=== PATIENT | male | born 1940 | race Caucasian/White ===

== ENCOUNTER → 2019-06-21 10:45 | Outpatient (BNVA) | payer MEDICARE, SELFPAY | PROVIDERS: Family Provider Nurse Practitioner; PCP Nurse Practitioner; Visit Provider Nurse Practitioner | DX: I10 Essential (primary) hypertension (principal); J30.1 Allergic rhinitis due to pollen; H61.23 Impacted cerumen, bilateral | CPT/HCPCS: 80053; 80061; 81003; 85025 ==

== ENCOUNTER → 2020-02-26 10:40 | Outpatient (BNVA) | payer MEDICARE, SELFPAY | PROVIDERS: Family Provider Nurse Practitioner; PCP Nurse Practitioner; Visit Provider Nurse Practitioner | DX: I10 Essential (primary) hypertension (principal) | CPT/HCPCS: 80053; 80061 ==

== ENCOUNTER → 2020-05-22 10:22 | Outpatient (BNVA) | payer MEDICARE, SELFPAY | PROVIDERS: Absent Provider Family Medicine; Family Provider Nurse Practitioner; PCP Nurse Practitioner; Visit Provider Nurse Practitioner | DX: I10 Essential (primary) hypertension (principal); J30.1 Allergic rhinitis due to pollen | CPT/HCPCS: 80053; 80061; 81000; 84443; 85025 ==

== ENCOUNTER → 2020-11-20 10:41 | Outpatient (BNVA) | payer MEDICARE, BC, SELFPAY | PROVIDERS: Family Provider Nurse Practitioner; PCP Nurse Practitioner; Visit Provider Nurse Practitioner | DX: I10 Essential (primary) hypertension (principal); E55.9 Vitamin D deficiency, unspecified; M25.522 Pain in left elbow; J30.1 Allergic rhinitis due to pollen; M19.022 Primary osteoarthritis, left elbow; M25.552 Pain in left hip; M16.12 Unilateral primary osteoarthritis, left hip; M54.5 Low back pain; M47.896 Other spondylosis, lumbar region | CPT/HCPCS: 72100; 73080; 73502; 73552; 80053; 80061; 82306; 84443; 85025; 85651; 86140 ==

== ENCOUNTER → 2021-07-02 10:26 | Outpatient (BNVA) | payer MEDICARE, BC, SELFPAY | PROVIDERS: Family Provider Nurse Practitioner; PCP Nurse Practitioner; Visit Provider Nurse Practitioner | DX: I10 Essential (primary) hypertension (principal); E55.9 Vitamin D deficiency, unspecified; M25.562 Pain in left knee; M19.071 Primary osteoarthritis, right ankle and foot | CPT/HCPCS: 73610; 80053; 80061; 81000; 82306 ==

== ENCOUNTER 2021-12-11 09:41 | Outpatient (CLI) | payer MEDICARE, BC, SELFPAY ==
--- NOTE | 2021-12-11 10:00 | US_ITS ---
WS: [id number] Exam: US renal BI* [id number] Date/Time of Exam: 12/11/2021 9:58 AM Reason For Exam: I10 - Essential (primary) hypertension The kidneys are of normal size, shape and location. 1.2 cm cyst at the mid pole of the left kidney. N ormal-appearing right kidney. The right kidney measures 9.7 x 4.2 x 4 cm. Cortical thickness of the r ight kidney is approximately 1 cm. Left kidney measures 10.7 x 4 x 4.63 cm. Cortical thickness the le ft kidney is 1.15 cm. No sign of renal obstruction. No obvious intrinsic or extrinsic bladder filling defects were seen. The kidneys are well perfused. The abdominal aorta is normal in caliber. US/US renal BI* [id number] IMPRESSION: 1. 1.2 cm midpole cyst of the left kidney. 2. No indication of solid renal mass, renal obstruction or other significant fi nding.
== END 2021-12-11 09:42 | disposition home or self-care (01) ==
LOC: RAD 09:42
PROVIDERS: PCP Nurse Practitioner; Visit Provider Nurse Practitioner
DX: I10 Essential (primary) hypertension (principal); N28.1 Cyst of kidney, acquired
CPT/HCPCS: 76770

== ENCOUNTER → 2021-12-29 10:07 | Outpatient (BNVA) | payer MEDICARE, BC, SELFPAY | PROVIDERS: PCP Nurse Practitioner; Visit Provider Nurse Practitioner | DX: I10 Essential (primary) hypertension (principal); J30.1 Allergic rhinitis due to pollen; N28.1 Cyst of kidney, acquired | CPT/HCPCS: 80053; 80061; 84443 ==

== ENCOUNTER → 2022-04-23 08:58 | Outpatient (BNVA) | payer MEDICARE, BC, SELFPAY | PROVIDERS: PCP Nurse Practitioner; Visit Provider Nurse Practitioner | DX: I10 Essential (primary) hypertension (principal) | CPT/HCPCS: 80053; 80061 ==

== ENCOUNTER 2022-07-02 11:37 | Outpatient (CLI) | payer MEDICARE, BC, SELFPAY ==
--- NOTE | 2022-07-02 12:00 | US_ITS ---
WS: [id number] RENAL ULTRASOUND HISTORY: N28.1 - Cyst of kidney, acquired COMPARISON: 12/11/2021 TECHNIQUE: 2-D and color Doppler imaging of the kidney submitted. Right kidney: 9.1 cm x 4.5 cm x 4.7 cm. Normal size kidney. There is mild increased echogenicity from chronic medical renal disease. No hydro nephrosis. No solid mass. Cortex is normal in 1.2 cm. Left kidney: 10.1 cm x 5.0 cm x 5.2 cm. Mild increased echogenicity. Normal size kidney. Again noted is the exophytic cortical cyst from the kidney with a maximum diameter 1.7 cm. Aorta: Atherosclerosis with mildly tortuous aorta. Urinary Bladder: Normally distended bladder. Very mild prostate gland enlargement measuring 3.5 x 3.8 x 3.0 cm. US/US renal BI* [id number] IMPRESSION: 1. No hydronephrosis or solid renal mass. 2. Stable LEFT cortical cyst. Maximum diameter 1.7 cm with very minimal increa se in size since the prior study.
== END 2022-07-02 11:38 | disposition home or self-care (01) ==
LOC: RAD 11:37
PROVIDERS: PCP Nurse Practitioner; Visit Provider Nurse Practitioner
DX: N28.1 Cyst of kidney, acquired (principal)
CPT/HCPCS: 76770

== ENCOUNTER → 2022-09-17 09:05 | Outpatient (BNVA) | payer MEDICARE, BC, SELFPAY | PROVIDERS: PCP Nurse Practitioner; Visit Provider Nurse Practitioner | DX: I10 Essential (primary) hypertension (principal); E55.9 Vitamin D deficiency, unspecified | CPT/HCPCS: 80053; 80061; 82306 ==

== ENCOUNTER → 2022-12-01 10:40 | Outpatient (BNVA) | payer MEDICARE, BC, SELFPAY | PROVIDERS: PCP Nurse Practitioner; Visit Provider Nurse Practitioner | DX: I10 Essential (primary) hypertension (principal); R73.9 Hyperglycemia, unspecified | CPT/HCPCS: 80048; 83036 ==

== ENCOUNTER → 2023-05-19 10:33 | Outpatient (BNVA) | payer MEDICARE, BC, SELFPAY | PROVIDERS: PCP Nurse Practitioner; Visit Provider Nurse Practitioner | DX: G47.9 Sleep disorder, unspecified (principal); J30.1 Allergic rhinitis due to pollen; I10 Essential (primary) hypertension; R35.0 Frequency of micturition; R73.9 Hyperglycemia, unspecified; L29.9 Pruritus, unspecified | CPT/HCPCS: 80053; 80061; 81000; 83036; 86003 ==

== ENCOUNTER 2023-07-22 07:59 | Outpatient (CLI) | payer MEDICARE, BC, SELFPAY ==
--- NOTE | 2023-07-22 08:30 | USCV_ITS ---
Alexey Victor Hugo Age: 83 Gender: M : 1940 Exam Date: 07/22/2023 08:29 Ordering Phys: Michael Deluca Technologist: SANDRA Exam Location: [facility] [place]: HTN Aortic Velocity @ SMA (cm/s) 84.9 RIGHT KIDNEY LEFT KIDNEY Velocity (cm/s) Velocity (cm/s) Sys/Bowie Sys/Bowie Resistive Index Resistive Index 29.8 / 11.8 0.60 Proximal Renal Artery 96.6 / 32.2 0.67 26.5 / 10.8 0.59 Mid Renal Artery 65.1 / 19.2 0.71 35.1 / 11.7 0.67 Distal Renal Artery 81.0 / 34.7 0.57 17.2 / 5.8 0.66 Hilar 32.0 / 10.0 0.69 19.4 / 7.3 0.63 Upper Pole 23.5 / 11.5 0.51 10.5 / 4.4 0.58 Mid Pole 28.9 / 12.6 0.57 12.1 / 4.4 0.64 Lower Pole 23.5 / 11.5 0.51 Accleration Index (cm/sec2) 54.50 Hilar 78.50 49.50 Upper Pole 46.30 21.60 Mid Pole 87.30 29.80 Lower Pole 52.00 93.0 Kidney Length (mm) 91.0 CONCLUSIONS 1.2 x1.2cm simple left renal cyst No hydronephrosis in either kidney No sonographic evidence of hemodynamically significant renal artery stenosis bilaterally. Musa Anna MD (Electronically Signed) Final Date: 22 July 2023 14:03 S
== END 2023-07-22 08:00 | disposition home or self-care (01) ==
LOC: RAD 08:00
PROVIDERS: PCP Nurse Practitioner; Visit Provider Nurse Practitioner
DX: I10 Essential (primary) hypertension (principal); N28.1 Cyst of kidney, acquired
CPT/HCPCS: 93975

== ENCOUNTER → 2023-10-14 11:49 | Outpatient (BNVA) | payer MEDICARE, BC, SELFPAY | PROVIDERS: PCP Nurse Practitioner; Visit Provider Nurse Practitioner | DX: I10 Essential (primary) hypertension (principal); Z79.899 Other long term (current) drug therapy | CPT/HCPCS: 80048 ==

== ENCOUNTER → 2023-11-02 11:47 | Outpatient (CLI) | payer MEDICARE, BC, SELFPAY ==
--- NOTE | 2023-11-02 12:15 | USCV_ITS ---
Victor Hugo Blackburn Age: 83 Gender: M : 1940 Exam Date: 11/02/2023 11:52 Ordering Phys: Michael Deluca Technologist: [place] [facility] [place]: htn BP: 160 / 83 HR: 61 Rhythm: Sinus Technical Quality: Adequate MEASUREMENTS (Male / Female) Normal Values 2D ECHO LVOT Diameter 2.2 cm LV Ejection Fraction MOD 2C 60.0 % LV Ejection Fraction 2C AL 61.8 % LA Diameter 3.3 cm RA Systolic Volume 4C AL 23.2 ml RA Systolic Volume 4C MOD 22.5 ml LA Sys Volume AL 35.0 cm cubed LA Sys Volume Index AL 17.7 cm cubed/m squared Aorta at Sinotubular Diameter 2.8 cm IVC Diameter 1.7 cm M-MODE LA Ao Ratio MM 1.1 AV Cusp Separation MM 2.2 cm DOPPLER AV Peak Velocity 143.0 cm/s LVOT Peak Velocity 71.0 cm/s AV Area Cont Eq vti 2.4 cm squared AV Area Cont Eq pk 1.9 cm squared MV Peak Velocity 84.0 cm/s MV Area PHT 3.4 cm squared Mitral E to A Ratio 0.9 TV Peak Velocity 146.5 cm/s TR Peak Velocity 159.0 cm/s TR Peak Gradient 10.1 mmHg TV Peak E Velocity 66.0 cm/s PV Peak Velocity 83.0 cm/s FINDINGS Left Ventricle Normal left ventricular size, systolic function and wall thickness, with no regional wall motion abnormalities.left ventricular ejection fraction is estimated at 60 %. Grade I/IV diastolic dysfunction (abnormal relaxation filling pattern), normal to mildly elevated filling pressures. Right Ventricle The right ventricle is normal in size and function. Right Atrium The right atrium is normal in size. Left Atrium The left atrium is normal in size. Mitral Valve Structurally normal mitral valve without significant stenosis or prolapse. There is mild mitral regurgitation. Aortic Valve Moderate aortic valve calcification. No aortic valve stenosis. Mild aortic valve regurgitation. Tricuspid Valve Structurally normal tricuspid valve without significant stenosis or regurgitation. Pulmonary artery systolic pressure is normal. Pulmonic Valve Structurally normal pulmonic valve without significant stenosis. There is no pulmonic regurgitation. Pericardium Normal pericardium without effusion Aorta Normal ascending aorta dimension. IVC The inferior vena cava appears normal. CONCLUSIONS 1-Normal left ventricular size, systolic function and wall thickness, with no regional wall motion abnormalities.left ventricular ejection fraction is estimated at 60 %. Grade I/IV diastolic dysfunction (abnormal relaxation filling pattern), normal to mildly elevated filling pressures. 2-Moderate aortic valve calcification. No aortic valve stenosis. Mild aortic valve regurgitation. 3-There is no pericardial effusion. 4-Right atrial pressure is around 5 mm of mercury. Tony Suazo MD (Electronically Signed) Final Date: 02 November 2023 20:27 S
== END | disposition home or self-care (01) ==
LOC: RAD 11:46
PROVIDERS: PCP Nurse Practitioner; Visit Provider Nurse Practitioner
DX: I10 Essential (primary) hypertension (principal); I34.0 Nonrheumatic mitral (valve) insufficiency; I35.8 Other nonrheumatic aortic valve disorders
CPT/HCPCS: 93306

== ENCOUNTER → 2024-08-15 09:55 | Outpatient (BNVA) | payer MEDICARE, BC, SELFPAY | PROVIDERS: PCP Nurse Practitioner; Visit Provider Nurse Practitioner | DX: M25.541 Pain in joints of right hand (principal); M25.542 Pain in joints of left hand; M54.50 Low back pain, unspecified; M79.604 Pain in right leg | CPT/HCPCS: 73110; 73130; 80053; 82607 ==

== ENCOUNTER 2024-10-11 16:29 | Inpatient (IN) | payer MEDICARE, BC, SELFPAY ==
[2024-10-11] VITALS (19 sets, daily range): BP systolic 146–182; BP diastolic 107–134; PULSE 74–109; RESP 8–30; TEMP 36.9; O2SAT 86–98
--- NOTE | 2024-10-11 16:36 | ECG_ITS ---
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 Measurements Intervals [place] Rate: 95 P: 54 OH: 218 QRS: 14 QRSD: 102 T: 182 QT: 375 QTc: 473 Interpretive Statements SINUS RHYTHM WITH FIRST DEGREE AV BLOCK POSSIBLE LEFT ATRIAL ENLARGEMENT [-0.1mV P-WAVE IN V1/V2] ANTEROSEPTAL MYOCARDIAL INFARCTION , PROBABLY RECENT [40+ ms Q WAVE IN V1-V4] ACUTE [place] No previous ECG available for comparison Electronically Signed On 10-17-2024 11:56:10 CDT by Troy Palacios M.D. [id number]
--- NOTE | 2024-10-11 16:39 | XRR_ITS ---
PROCEDURE INFORMATION: Exam: XR Chest Exam date and time: 10/11/2024 4:49 PM Age: 84 years old Clinical indication: Pain; Chest pressure; Additional info: Chest pain TECHNIQUE: Imaging protocol: Radiologic exam of the chest. Views: 1 view. COMPARISON: No relevant prior studies available. FINDINGS: Lungs: Atelectasis or scar in the lung bases. Calcified granuloma in the suprahilar left lung. Calcified right hilar lymph nodes. Pleural spaces: Small bilateral pleural effusions. No pneumothorax. Heart/Mediastinum: Unremarkable. No cardiomegaly. Bones/joints: Degenerative spine with curvature. XR/XR chest 1V [id number] IMPRESSION: Small pleural effusions with basilar atelectasis.
[2024-10-11 17:02] LABS: Basophils % 0.3 %; Eosinophils # 0.1 10^3/uL (0.0-0.8); Eosinophils % 1.3 %; Hematocrit 46.1 % (37-53); Lymphocytes # 0.7 10^3/uL (0.8-4.8); Mean Corpuscular HGB Conc 34.3 g/dL (30-55); Mean Corpuscular Volume 90.4 fl (82-101); Mean Platelet Volume 9.8 fL (7.4-10.4); Monocytes # 0.5 10^3/uL (0.2-0.9); Monocytes % 7.9 %; Neutrophils # 4.77 10^3/uL (1.8-7.7); Neutrophils % 78.2 %; Nucleated Red Blood Cells % 0 %; Platelet Count 202 10^3/cmm (157-399); Red Cell Distribution Width 12.9 % (12.1-15.1)
[2024-10-11] MEDS: aspirin 81 mg Chew Tablet 324 MG PO (17:10)
[2024-10-11 17:19] LABS: Partial Thromboplastin Time 31.6 SECONDS (23.9-36.7)
--- NOTE | 2024-10-11 17:28 | W.ED.CHESTPA ---
HPI - Chest Pain General: Chief Complaint: Chest Pain Stated Complaint: chest pain Time Seen by Provider: 10/11/24 16:38 History of Present Illness: Chief complaint is difficulty breathing and elevated blood pressures. The patient states he came in because he noticed his blood pressures were really high and he has been having shortness of breath and leg swelling and cannot breathe if he lays flat. He states 2 weeks ago he had severe chest pain during the night that was left-sided substernal chest discomfort going to his left arm without radiation to the back. It was not sharp or tearing. It was pressure and squeezing and then resolved after about 4 hours of pain. He states since then he has been having troubles with his blood pressures going up and trouble breathing and he noticed his legs started swelling. He has no history of heart problems. He also has some cough but no fever. No headache. No history of aneurysms. No history of PE or DVT. No pleurisy. No hemoptysis. No black or bloody stools. No chest pain since that episode. Related Data Home Medications ?Medication ?Instructions ?Recorded ?Confirmed aspirin 81 mg chewable tablet 81 mg PO ONCE 05/30/19 10/11/24 lysine 500 mg tablet (L-Lysine) 500 mg PO DAILY 08/03/24 10/11/24 Allergies Allergy/AdvReac Type Severity Reaction Status Date / Time barley Allergy ADR-Gastrointestinal Verified 10/11/24 13:37 Upset orange Allergy ADR-Gastrointestinal Verified 10/11/24 13:37 Upset peanut Allergy swelling Verified 10/11/24 13:37 beef derived (bovine) AdvReac ADR-Gastrointestinal Verified 10/11/24 13:37 Upset [facility] ED PFSH: Medical History Grade I diastolic dysfunction Seasonal allergic rhinitis due to pollen Hypertension Surgical History No history of previous surgery Family History Father Heart disease Mother Cancer Blood cancer Social History Smoking and tobacco/nicotine status: never used tobacco/nicotine Second hand smoke exposure: No Alcohol intake: never Substance/Drug Use: never Adopted: No Caregiver/support person: No Lives independently: Yes Household members: children Housing: House Marital status: / Current occupational status: employed Do you think of yourself as: Straight/Heterosexual Current gender identity: Male Physical Exam Narrative: EXAM NARRATIVE: Patient is alert talkative in no acute distress. His neck is supple. Conjunctive is normal. Moist mucous membranes. Speech is clear. Grossly intact motor. Heart is regular rhythm. He has some diminished breath sounds in the bases with some crackles. Abdomen soft nontender. Patient has 2-3+ pitting edema both legs. Extremities are warm well-perfused. No rash in exposed areas. He shows ability to reason. Speech is clear. No truncal ataxia Course Vital Signs: Vital signs: Vital Signs Temperature 98.4 F 10/11/24 16:47 Pulse Rate 101 H 10/11/24 16:47 Respiratory Rate 18 10/11/24 16:47 Blood Pressure 177/117 10/11/24 16:47 Pulse Oximetry 98 10/11/24 16:47 Oxygen Delivery Me thod Room Air 10/11/24 16:47 MDM - Chest Pain Medical Decision Making Patient presents after having episode of significant chest discomfort during the night 2 weeks ago and since then has had no further chest discomfort but has been having progressively worsening shortness of breath especially if he lays flat or tries to do activity and has increasing swelling in both legs. The pain was not sharp or tearing into the back to suggest a dissection. It is not pleuritic to suggest a PE and denies any recent immobility or hemoptysis or history of PE or DVT. EKG ordered. EKG shows ST elevation in the precordial leads and biphasic T waves in some of the leads as well and T wave inversions in several leads. This could represent ST elevation ME however he has deep Q waves and this is most likely completed ME 2 weeks ago based on history. He is not having any current chest pain. Cardiology came immediately to the bedside and evaluated the patient and reviewed the EKG and recommends obtaining labs and not taken directly to Production Shift Supervisor which I agree with. Patient I suspect had ME 2 weeks ago and now has subsequent CHF. CBC CMP troponin PT PTT chest x-ray ordered. Aspirin given 324 mg aspirin. Will administer nitroglycerin. Plan to admit to the hospital for further cardiac evaluation and treatment. Patient's white count is normal and hemoglobin is normal. Chest x-ray showed small pleural effusions bilaterally and atelectasis per radiology. Plan to order heparin bolus and drip and admit for further evaluation. Patient troponin was elevated. proBNP is elevated. Creatinine is 1.3. I ordered 40 mg Lasix IV. I discussed that with again with Dr. Palacios who plans to do heart cath in the morning and with Dr. Lange who will admit Lab Data 10/11/24 16:48 10/11/24 16:48 Radiology Impressions Chest X-Ray 10/11/24 16:39 IMPRESSION: Small pleural effusions with basilar atelectasis. Laboratory Results WBC 6.10 10^3/uL (3.29-11.43) 10/11/24 16:48 RBC 5.10 10^6/uL (3.85-5.65) 10/11/24 16:48 Hgb 15.80 g/dL (11.27-16.99) 10/11/24 16:48 Hct 46.1 % (37-53) 10/11/24 16:48 MCV 90.4 fl (82-101) 10/11/24 16:48 MCH 31.0 pg (27-33) 10/11/24 16:48 MCHC 34.3 g/dL (30-55) 10/11/24 16:48 RDW 12.9 % (12.1-15.1) 10/11/24 16:48 Plt Count 202 10^3/cmm (157-399) 10/11/24 16:48 MPV 9.8 fL (7.4-10.4) 10/11/24 16:48 Neut % (Auto) 78.2 % 10/11/24 16:48 Lymph % (Auto) 12.0 % 10/11/24 16:48 [place] % (Auto) 7.9 % 10/11/24 16:48 Eos % (Auto) 1.3 % 10/11/24 16:48 Baso % (Auto) 0.3 % 10/11/24 16:48 Neut # (Auto) 4.77 10^3/uL (1.8-7.7) 10/11/24 16:48 Lymph # (Auto) 0.7 10^3/uL (0.8-4.8) L 10/11/24 16:48 [place] # (Auto) 0.5 10^3/uL (0.2-0.9) 10/11/24 16:48 Eos # (Auto) 0.1 10^3/uL (0.0-0.8) 10/11/24 16:48 Baso # (Auto) 0.0 10^3/uL (0.0-0.1) 10/11/24 16:48 Nucleated RBC % (auto) 0 % 10/11/24 16:48 Nucleated RBCs # 0.0 /100WBC 10/11/24 16:48 PT 13.90 SECONDS (12.1-14.9) 10/11/24 16:48 INR 1.00 (0.8-1.2) 10/11/24 16:48 APTT 31.6 SECONDS (23.9-36.7) 10/11/24 16:48 Sodium 143 mmol/L (136-145) 10/11/24 16:48 Potassium 4.7 mmol/L (3.5-5.1) 10/11/24 16:48 Chloride 106 mmol/L (98-107) 10/11/24 16:48 Carbon Dioxide 21 mmol/L (22-29) L 10/11/24 16:48 Anion Gap 20.7 (5-19) H 10/11/24 16:48 BUN 28 mg/dL (8-23) H 10/11/24 16:48 Creatinine 1.3 mg/dL (0.7-1.2) H 10/11/24 16:48 GFR Calculation Not Reportable 10/11/24 16:48 Glucose 108 mg/dL (65-115) 10/11/24 16:48 Calculated Osmolality 302 mOsm/kg (285-295) H 10/11/24 16:48 Calcium 8.8 mg/dL (8.5-10.5) 10/11/24 16:48 Total Bilirubin 0.7 mg/dL (0.15-1.2) 10/11/24 16:48 AST 21 U/L (0-40) 10/11/24 16:48 ALT 17 U/L (0-41) 10/11/24 16:48 Alkaline Phosphatase 103 U/L (40-130) 10/11/24 16:48 Troponin T Baseline 122 ng/L (0-15) H* 10/11/24 16:48 NT-Pro-B Natriuret Pep 60761 pg/mL (0-450) H 10/11/24 16:48 Total Protein 6.7 g/dL (6.6-8.7) 10/11/24 16:48 Albumin 4.2 g/dL (3.5-5.2) 10/11/24 16:48 Globulin 2.5 g/dL (1.3-4.6) 10/11/24 16:48 Lipase 21 U/L (13-60) 10/11/24 16:48 All radiology interpretation(s) finalized by discharge Discharge Plan Discharge Patient Disposition: Admitted As Inpatient Clinical Impression: Non-ST elevation (NSTEMI) myocardial infarction, Acute CHF Condition: Stable Coding Level of Care Code ED Equipment Tester for Peyton Delarosa
[2024-10-11 17:44] LABS: Troponin(5th) Baseline 122 ng/L (0-15)
[2024-10-11 17:52] LABS: Alanine Aminotransferase 17 U/L (0-41); Albumin Level 4.2 g/dL (3.5-5.2); Alkaline Phosphatase 103 U/L (40-130); Blood Urea Nitrogen 28 mg/dL (8-23); Calcium 8.8 mg/dL (8.5-10.5); Carbon Dioxide 21 mmol/L (22-29); Chloride 106 mmol/L (98-107); Creatinine Clr Calc Pharmacy 44.8367; Globulin 2.5 g/dL (1.3-4.6); Glucose 108 mg/dL (65-115); Lipase 21 U/L (13-60); NT Pro B Type Natriuretic Pept 16310 pg/mL (0-450); Osmolality Calculated 302 mOsm/kg (285-295); Sodium 143 mmol/L (136-145); Total Bilirubin 0.7 mg/dL (0.15-1.2); Total Protein 6.7 g/dL (6.6-8.7)
[2024-10-11 17:56] LABS: Anion Gap 20.7 (5-19); Aspartate Amino Transferase 21 U/L (0-40); Potassium 4.7 mmol/L (3.5-5.1)
--- NOTE | 2024-10-11 18:02 | P.CONIM_ITS ---
Providers/Reason For Consult 2 Consulting Physician/Specialty*: Troy Palacios MD/ Interventional cardiology Reason for Consult*: Acute [place] Requesting Physician: Dr Adams Primary Care Provider: MELA Mesa History of Present Illness History of Present Illness Victor Hugo Blackburn is a 84 year old male was presented to hospital with shortness of breath. According to patient 2 weeks ago he was woken up in the middle of the night with severe substernal chest pain. It lasted for several hours and then resolved. Did not seek medical therapy. Since then has been having difficulty laying down secondary to shortness of breath. Today was seen in PCP office and was advised to go to the ER. EKG shows Q waves in anterior and anterolateral lara with ST elevation. He is completely chest pain-free. Review of Systems 2 General: Reports: 10 or more systems reviewed and unremarkable except in HPI and below Medications/Allergies Home Medications ?Medication ?Instructions ?Recorded ?Confirmed ?Last Taken ?Type aspirin 81 mg chewable tablet 81 mg PO DAILY 05/30/19 10/12/24 10/11/24 History lysine 500 mg tablet (L-Lysine) 500 mg PO DAILY 10/12/24 10/11/24 History omega 3-knu-fru-fish oil 1,000 mg 1 cap PO DAILY 10/1210/12/24 10/11/24 History (120 mg-180 mg) capsule (Fish Oil) Allergies Allergy/AdvReac Type Severity Reaction Status Date / Time No Known Allergies Allergy Verified 10/12/24 08:12 PFSH Acute 2 PFSH: Medical History (Updated 10/13/24 @ 12:42 by Jair Lange MD) CKD (chronic kidney disease) Grade I diastolic dysfunction Seasonal allergic rhinitis due to pollen Hypertension Surgical History No history of previous surgery Family History Father Heart disease Mother Cancer Blood cancer Social History Smoking and tobacco/nicotine status: never used tobacco/nicotine Second hand smoke exposure: No Alcohol intake: never Substance/Drug Use: never Adopted: No Caregiver/support person: No Lives independently: Yes Household members: children Housing: House Marital status: / Current occupational status: employed Do you think of yourself as: Straight/Heterosexual Current gender identity: Male Vitals/I&O/Wt Last Vital Signs Temp 98.4 F 10/11/24 16:47 Pulse 101 H 10/11/24 16:47 Resp 18 10/11/24 16:47 BP 177/117 10/11/24 16:47 Pulse Ox 98 10/11/24 16:47 O2 Del Method Room Air 10/11/24 16:47 Weight last 48 hrs Weight 165 lb Physical Exam 2 Narrative: GENERAL: Patient is alert, awake and oriented x3. [] NECK: No jugular vein distension. [] HEENT: No cyanosis. No icterus. No pallor. [] HEART: Regular S1 and S2. No murmur, rub or gallop. [] LUNGS: Diminished air entry bilaterally CENTRAL NERVOUS SYSTEM: Grossly nonfocal. [] EXTREMITIES: Lower extremities with 1+ edema bilaterally. Data 10/14/24 04:37 10/14/24 04:37 A&P Assessment and plan (1) Non-ST elevation (NSTEMI) myocardial infarction: (2) Hypertension: (3) Acute CHF: (4) Ischemic cardiomyopathy: Plan Patient's presentation is is consistent with delayed presentation of [place]. Patient likely had occlusion of LAD however did not seek medical attention 2 weeks ago. Now has developed congestive heart failure. We will obtain echocardiogram. Continue aspirin. Start heparin. Trend troponins. IV diuresis. Close I&O's. Patient will need coronary angiogram before discharge. Further recommendations based on LV function assessment. Thank you for involving us with care of this patient. Please call with questions. PDMP PDMP Reviewed: Not Reviewed Consult Attestations 2 Medical Necessity Statement: Care expected to cross 2 midnights. Coding Level of Care Code Acute Code for [facility] Diagnoses Non-ST elevation (NSTEMI) myocardial infarction I21.4 Essential hypertension I10 Hypertension type: essential hypertension Acute systolic congestive heart failure I50.21 Heart failure type: systolic Ischemic cardiomyopathy I25.5
--- NOTE | 2024-10-11 18:39 | ECG_ITS ---
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1940 Requested By: Geo Adams Order Number: [id number] Reading MD: DIANNA ASHTON Measurements Intervals [place] Rate: 89 P: 47 OH: 217 QRS: 1 QRSD: 100 T: 192 QT: 400 QTc: 489 Interpretive Statements SINUS RHYTHM WITH FIRST DEGREE AV BLOCK POSSIBLE LEFT ATRIAL ENLARGEMENT [-0.1mV P-WAVE IN V1/V2] ANTEROSEPTAL MYOCARDIAL INFARCTION , PROBABLY RECENT [40+ ms Q WAVE IN V1-V4] ACUTE [place] Compared to ECG 10/11/2024 16:36:17 No significant changes Electronically Signed On 10-18-2024 22:55:52 CDT by DIANNA ASHTON [email or web address] [email or web address]
[2024-10-11] MEDS: FUROsemide 10 mg/mL SDV 4mL 40 MG IVP (19:11)
[2024-10-11] MEDS: heparin 5,000 unit/mL INJ 1 mL IVP (19:11)
[2024-10-11] MEDS: heparin drip 25,000 UNIT/500 ML PREMIX 21 UNIT IV (19:17)
--- NOTE | 2024-10-11 19:30 | USCV_ITS ---
AlexeyVictor Hugo Age: 84 Gender: M : 1940 Exam Date: 10/11/2024 23:31 Ordering Phys: Jair Lange MD Technologist: ELIJAH [place] [facility] [place]ication: nstemi, chf BP: 177 / 117 HR: 86 Rhythm: Sinus Technical Quality: Adequate MEASUREMENTS (Male / Female) Normal Values 2D ECHO LV Diastolic Diameter PLAX 5.1 cm 4.2 - 5.9 / 3.9 - 5.3 cm IVS Diastolic Thickness 1.2 cm 0.6 - 1.0 / 0.6 - 0.9 cm IVS Systolic Thickness 1.2 cm LVPW Diastolic Thickness 1.3 cm 0.6 - 1.0 / 0.6 - 0.9 cm LVPW Systolic Thickness 1.3 cm LVOT Diameter 1.9 cm LV Ejection Fraction 2D Teich 12.5 % LV Ejection Fraction MOD 4C 28.0 % LV Ejection Fraction MOD 2C 24.0 % LV Ejection Fraction 2C AL 23.6 % LA Diameter 3.1 cm Aorta at Sinotubular Diameter 3.2 cm IVC Diameter 1.7 cm M-MODE LA Ao Ratio MM 0.8 AV Cusp Separation MM 1.7 cm DOPPLER AV Peak Velocity 115.0 cm/s LVOT Peak Velocity 43.0 cm/s AV Area Cont Eq vti 1.2 cm squared AV Area Cont Eq pk 1.1 cm squared MV Peak Velocity 93.0 cm/s MV Area PHT 4.9 cm squared Mitral E to A Ratio 2.4 TV Peak Velocity 316.5 cm/s TR Peak Velocity 355.0 cm/s TR Peak Gradient 50.4 mmHg TV Peak E Velocity 42.0 cm/s PV Peak Velocity 61.0 cm/s FINDINGS Left Ventricle Left ventricle is normal in size. LV systolic function is severely reduced with EF of 15 to 20%. Severe global hypokinesis with akinetic apical wall. Possible apical thrombus seen Right Ventricle Normal in size and function Right Atrium Normal in size Left Atrium Normal in size Mitral Valve Structurally normal mitral valve. Mild to moderate mitral regurgitation. Aortic Valve Structurally normal aortic valve. Mild to moderate aortic regurgitation. Tricuspid Valve Mild tricuspid regurgitation. RVSP 35 to 40 mmHg. This is consistent with mild pulmonary hypertension Pulmonic Valve Mild pulmonic regurgitation Pericardium Pleural effusion seen. Aorta Normal in size IVC Normal in size CONCLUSIONS LV systolic function is severely reduced with EF of 15-20%. Severe global hypokinesis with akinetic apical wall. Possible apical thrombus seen Mild to moderate mitral regurgitation. Mild to moderate aortic regurgitation. Mild pulmonary hypertension Mild tricuspid regurgitation. Mild pulmonic regurgitation Pleural effusion seen. Compared to prior echocrdiogram from 2023, LV systolic function has decreased significantly, patient has possible apical thrombus, and pleural effusion is seen. Recommend repeat limited echocardiogram with contrast to confirm or rule out thrombus. Troy Palacios MD (Electronically Signed) Final Date: 12 Oct 2024 06:51 S
--- NOTE | 2024-10-11 19:35 | PM.HP ---
Providers/Chief Complaint Primary Care Provider: Michael Deluca, GILBERTO-C Chief Complaint: chest pain History of Present Illness Victor Hugo Blackburn is a 84 year old male with past medical history of hypertension not on antihypertensives currently because of side effects of the blood pressure medications in the past presents to the ER today because of difficulty in breathing on exertion and on lying down which acutely started over last 2 weeks. Patient remembers having chest pain 2 weeks ago which he ignored and since then he has been having occasional chest heaviness and difficulty in breathing. States his blood pressures at home usually runs at 170-180 systolics. In the ER there was a concern for non-ST elevation UT and congestive heart failure hence hospitalist service was consulted. Review of Systems General: Reports: 10 or more systems reviewed and unremarkable except in HPI and below Const: Denies: fever(s), chills, body aches, change in appetite, change in weight, malaise, night sweats, diaphoresis, change in sleep pattern, daytime sleepiness or snoring Eyes: Denies: change in vision, blurry vision, photophobia, eye discomfort or eye discharge ENMT: Denies: throat pain, enlarged tonsils, hoarseness, mouth pain, oral sores, dry mouth, tinnitus, nasal congestion or post nasal drip Card: Denies: chest pain, palpitations, irregular heart rhythm, edema, swelling of feet/ankles, lightheadedness, syncope, pre-syncope, dyspnea on exertion, orthopnea, leg pain with exertion or acrocyanosis Resp: Denies: dyspnea, productive cough, non-productive cough, wheezing, stridor, pain on inspiration, change in phlegm color, hemoptysis or chest congestion GI: Denies: abdominal pain, nausea, vomiting, hematemesis, coffee ground emesis, dysphagia, heartburn, diarrhea, constipation, bloating, GI cramping, change in bowel habits, pain on defecation, hematochezia or melena : Denies: flank pain, difficulty urinating, dysuria, urinary frequency, urinary urgency, urinary hesitancy, urinary dribbling, difficulty starting urination, change in urine stream, nocturia or hematuria Musc: Denies: neck pain, back pain, extremity pain, joint pain, joint swelling, joint redness, joint stiffness or limited range of motion Neuro: Denies: headache(s), numbness in extremities, weakness in extremities, sensory changes, lack of coordination, difficulty walking, frequent falls, dizziness, vertigo, confusion, Slurred speech present, difficulty communicating thoughts or seizure-like activity Psych: Denies: anxiety, depression, mood swings, panic attacks, hopelessness or irritability Endo: Denies: polyuria, polydipsia, tired all the time, cold intolerance, excessive sweating, flushing or heat intolerance Albert/Lymph: Denies: easy bruising or easy bleeding All/Imm: Denies: tongue swelling, facial swelling or acute wheezing Medications/Allergies Home Medications ?Medication ?Instructions ?Recorded ?Confirmed ?Last Taken ?Type aspirin 81 mg chewable tablet 81 mg PO DAILY 05/30/19 10/12/24 10/11/24 History lysine 500 mg tablet (L-Lysine) 500 mg PO DAILY 08/03/24 10/12/24 10/11/24 History omega 1-syj-shn-fish oil 1,000 mg 1 cap PO DAILY 10/12/24 10/12/24 10/11/24 History (120 mg-180 mg) capsule (Fish Oil) Allergies Allergy/AdvReac Type Severity Reaction Status Date / Time No Known Allergies Allergy Verified 10/12/24 08:12 PFSH Acute PFSH: Medical History (Updated 10/11/24 @ 21:34 by Jair Lange MD) CKD (chronic kidney disease) Grade I diastolic dysfunction Seasonal allergic rhinitis due to pollen Hypertension Surgical History No history of previous surgery Family History Father Heart disease Mother Cancer Blood cancer Social History Smoking and tobacco/nicotine status: never used tobacco/nicotine Second hand smoke exposure: No Alcohol intake: never Substance/Drug Use: never Adopted: No Caregiver/support person: No Lives independently: Yes Household members: children Housing: House Marital status: / Current occupational status: employed Do you think of yourself as: Straight/Heterosexual Current gender identity: Male Vitals/I&O/Wt Last Vital Signs Temp 98.4 F 10/11/24 16:47 Pulse 85 10/11/24 18:48 Resp 18 10/11/24 16:47 BP 177/117 10/11/24 16:47 Pulse Ox 97 10/11/24 18:48 O2 Del Method Room Air 10/11/24 16:47 Weight last 48 hrs Weight 74.843 kg Physical Exam Narrative: General: No acute distress, AO x3 HEENT: PERRLA, pupils bilaterally equal and reactive Chest: Normal vesicular breath sounds, bilateral lower zone soft crackles present, equal good air entry bilaterally CVS: S1-S2 regular, no murmurs, no tachycardia, S3 gallops, no rubs Abdomen: Soft, nontender, no organomegaly, bowel sounds present Neuro: No focal deficits, no facial deformity, AO x3, power 5/5 in all limbs Data 10/12/24 00:58 10/12/24 00:58 A&P Assessment and plan (1) Non-ST elevation (NSTEMI) myocardial infarction: Baseline trop elevated. NSTEMI vs delayed I presentation. Currently chest pain free. Cardiology consulted. Check Echo, A1c, lipid panel Heparin drip ASA 81mg PO QD, Atorva 80 mg PO QHS, metroprolol 25 mg BID. (2) Acute CHF: Symptomatic. Echo as above Fluid restriction-1500 cc IV lasix 40 mg Strict I/O, daily weight Further uptitration of GDMT as per Echo results. (3) Hypertension: (4) CKD (chronic kidney disease): Baseline creat of 1.3-1.6 Current creat 1.3. Check Renal USG UA, urine lytes, urine creat (5) Accelerated hypertension: Blood pressures elevated. Associated with SOB as symptoms of NSTEMI. Goal BP less than 140/90 mmhg. NItro drip for now. Titrate accordingly. PDMP PDMP Reviewed: Not Reviewed Attestations Medical Necessity Statement*: Admit for more than 2MN for NSTEMI, CHF, CKD Diagnoses Non-ST elevation (NSTEMI) myocardial infarction I21.4 Acute CHF I50.9 Essential hypertension I10 Hypertension type: essential hypertension CKD (chronic kidney disease) N18.9 Accelerated hypertension I10
[2024-10-11 20:12] LABS: Procalcitonin 0.07 ng/mL (0-0.5); Thyroid Stimulating Hormone 3.97 uIU/mL (0.27-4.20)
[2024-10-11 20:29] LABS: Troponin 5 2HR Delta -1.5 ABS# (0-10)
[2024-10-11 20:30] LABS: Troponin 5 2HR 120.5 ng/L (0-15)
[2024-10-11] MEDS: metoprolol tartrate 25 mg Tablet PO (21:16)
[2024-10-11] MEDS: atorvastatin 40 mg Tablet 80 MG PO (21:16)
[2024-10-11] MEDS: pantoprazole 40 mg SDV IVP (21:16)
[2024-10-11 21:25] LABS: Iron 59 ug/dL (59-158); Percent Saturation 27.1 % (20-50); Total Iron Binding Capacity 217 mcg/dl; Unsaturated Iron Binding 158 ug/dL (112-347)
[2024-10-11 21:28] LABS: Estmated Average Glucose 111; Hemoglobin A1C 5.5 % (4.0-6.0)
[2024-10-11 21:41] LABS: Vitamin B12 397 pg/mL (232-1245)
[2024-10-11] MEDS: cyclobenzaprine 10 mg Tablet PO (23:13)
[2024-10-11 23:31] LABS: Magnesium 2.1 mg/dL (1.7-2.3); Phosphorus 3.1 mg/dL (2.5-4.5)
[2024-10-11 23:41] LABS: Troponin 5 6HR Delta 7.4 ng/L (0-12)
[2024-10-11 23:44] LABS: Troponin 5 6HR 129.4 ng/L (0-15)
[2024-10-11] MEDS: metoprolol tartrate 1 mg/1 mL SDV 5 mL 5 MG IVP (23:50)
--- NOTE | 2024-10-11 23:58 | ECG_ITS ---
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1940 Requested By: Geo Adams Order Number: [id number] Reading MD: DIANNA ASHTON Measurements Intervals [place] Rate: 93 P: 46 SD: 225 QRS: 9 QRSD: 106 T: 194 QT: 389 QTc: 485 Interpretive Statements SINUS RHYTHM WITH FIRST DEGREE AV BLOCK POSSIBLE LEFT ATRIAL ENLARGEMENT [-0.1mV P-WAVE IN V1/V2] ANTEROSEPTAL MYOCARDIAL INFARCTION , POSSIBLY ACUTE [40+ ms Q WAVE IN V1-V4] Compared to ECG 10/11/2024 18:20:12 No significant changes Electronically Signed On 10-18-2024 22:57:00 CDT by DIANNA ASHTON [email or web address]
[2024-10-12] VITALS (30 sets, daily range): BP systolic 106–165; BP diastolic 63–124; PULSE 64–94; RESP 4–25; TEMP 36.3–36.9; O2SAT 85–96
[2024-10-12] MEDS: morphine 4 mg/mL SDV 1 mL 2 MG IVP (00:47)
[2024-10-12 01:14] LABS: Basophils % 0.3 %; Eosinophils % 0.4 %; Hematocrit 49.1 % (37-53); Lymphocytes # 0.5 10^3/uL (0.8-4.8); Lymphocytes % 5.4 %; Mean Corpuscular HGB Conc 33.6 g/dL (30-55); Mean Corpuscular Hemoglobin 30.3 pg (27-33); Mean Corpuscular Volume 90.1 fl (82-101); Mean Platelet Volume 9.9 fL (7.4-10.4); Monocytes # 0.5 10^3/uL (0.2-0.9); Monocytes % 5.4 %; Neutrophils # 8.18 10^3/uL (1.8-7.7); Neutrophils % 88.2 %; Nucleated Red Blood Cells % 0 %; Platelet Count 206 10^3/cmm (157-399); Red Blood Count 5.45 10^6/uL (3.85-5.65); Red Cell Distribution Width 12.8 % (12.1-15.1); White Blood Count 9.28 10^3/uL (3.29-11.43)
[2024-10-12 01:37] LABS: Partial Thromboplastin Time 91.9 SECONDS (23.9-36.7)
[2024-10-12 01:38] LABS: Alanine Aminotransferase 17 U/L (0-41); Alkaline Phosphatase 101 U/L (40-130); Anion Gap 20.6 (5-19); Aspartate Amino Transferase 18 U/L (0-40); Blood Urea Nitrogen 24 mg/dL (8-23); Calcium 8.9 mg/dL (8.5-10.5); Carbon Dioxide 21 mmol/L (22-29); Chloride 104 mmol/L (98-107); Chol HDL Ratio 3.28 mg/dL (1.0-5.00); Cholesterol 154 mg/dL (0-200); Creatinine Clr Calc Pharmacy 44.8367; Globulin 3.2 g/dL (1.3-4.6); Glucose 126 mg/dL (65-115); HDL Cholesterol 47 mg/dL (60-100); LDL Cholesterol Calculated 94 mg/dL (50-129); Osmolality Calculated 300 mOsm/kg (285-295); Phosphorus 3.3 mg/dL (2.5-4.5); Potassium 3.6 mmol/L (3.5-5.1); Sodium 142 mmol/L (136-145); Total Bilirubin 1.1 mg/dL (0.15-1.2); Total Protein 7.2 g/dL (6.6-8.7); Triglycerides 67 mg/dL (0-150)
--- NOTE | 2024-10-12 01:42 | PC.NURSE ---
Metoprolol Received order for 10 mg IVP metoprolol ONCE. Administered 5 mg slowly due to concerns about decreasing blood pressure too quickly. 5 mg brought patient's blood pressure down to 147/96 and heart rate down from 90s to high 60s/low 70s. Dr Carpenter notified of decrease in blood pressure and heart rate. Asked if he wanted the other 5 mg given to patient and he said to hold. Only 5 mg administered. Left administration note on order in MAR to see this nurse note for further information.
[2024-10-12 01:44] LABS: Procalcitonin 0.08 ng/mL (0-0.5)
[2024-10-12 02:28] LABS: Folate Level 10.3 ng/mL (4.5-32.2)
--- NOTE | 2024-10-12 07:40 | USCV_ITS ---
Victor Hugo Blackburn Age: 84 Gender: M : 1940 Exam Date: 10/12/2024 14:36 Ordering Phys: Jair Lange MD Technologist: Exam Location: [facility] [place] Indication: LOOK FOR THROMBUS BP: 118 / 77 HR: Rhythm: Sinus Technical Quality: Adequate MEASUREMENTS (Male / Female) Normal Values 2D ECHO LV Ejection Fraction MOD 4C 47.7 % LV Ejection Fraction MOD 2C 41.9 % LV Ejection Fraction 2C AL 42.2 % FINDINGS Left Ventricle Moderately increased left ventricular cavity size. Severely decreased left ventricular systolic function. Left ventricular ejection fraction is estimated at 30 %. Global left ventricular hypokinesis. Right Ventricle Right Atrium Left Atrium Mitral Valve Aortic Valve Tricuspid Valve Pulmonic Valve Pericardium Aorta IVC CONCLUSIONS Moderately increased left ventricular cavity size. Severely decreased left ventricular systolic function. Left ventricular ejection fraction is estimated at 30 %. Global left ventricular hypokinesis. There is no pericardial effusion. Tony Suazo MD (Electronically Signed) Final Date: 12 Oct 2024 17:41 S
[2024-10-12] MEDS: carvedilol 6.25 mg Tablet PO ×2 (08:03→17:46)
[2024-10-12] MEDS: aspirin 81 mg EC Tablet PO (08:03)
[2024-10-12] MEDS: FUROsemide 10 mg/mL SDV 4mL 40 MG IVP ×2 (08:03→17:46)
[2024-10-12] MEDS: docusate sodium 100 mg Capsule PO ×2 (08:03→17:46)
[2024-10-12 08:24] LABS: Partial Thromboplastin Time 76.3 SECONDS (23.9-36.7)
--- NOTE | 2024-10-12 09:10 | P.PN_ITS ---
<Statement entered by Troy Palacios M.D - 10/14/24 14:00> Patient was evaluated and cared for in conjunction with an advanced practice practitioner.? I personally examined the patient and reviewed the chart and all pertinent data including imaging, telemetry, and laboratory results.? I discussed the patient in detail with the advanced practice practitioner.? Please see? their note for complete progress note, testing results and agreed upon plan of care for the patient. Patient is chest pain free. Plan for coronary angiogram with possible PCI tomorrow. NPO past midnight. Patient has severe LV dysfunction. Echo with contrast is consistent with severe LV dysfunction with left ventricular thrombus. Continue anticoagulation GENERAL: Patient is alert, awake and oriented x3. HEART: Regular S1 and S2 LUNGS: Clear to auscultate bilaterally. CENTRAL NERVOUS SYSTEM: Grossly nonfocal. EXTREMITIES: Lower extremities without edema bilaterally. Subjective 2 Subjective: No events overnight. He appeared volume overloaded yesterday, plan was to diurese and plan for coronary angiogram when he was not volume overloaded. He is -1600 mL for the last 24 hours. Blood pressure was very high prior to admission, currently in the 130-150 systolic range. His breathing is better today. Vitals/I&O/Wt Last Vital Signs Temp 97.6 F 10/12/24 06:11 Pulse 65 10/12/24 06:00 Resp 10 L 10/12/24 05:30 BP 134/85 10/12/24 05:30 Pulse Ox 96 10/12/24 05:30 O2 Del Method Nasal Cannula 10/11/24 21:24 10/11/24 10/12/24 10/12/24 22:59 06:59 14:59 Intake Total 138.6 / 138.6 179.1 / 179.1 Output Total 675 / 1725 1050 / 1725 225 / 225 Balance -675 / -1586.4 -911.4 / -1586.4 -45.9 / -45.9 Weight last 48 hrs Weight 163 lb 2.273 oz Weight 165 lb Physical Exam 2 Const: COMMON NORMALS: no acute distress and patient oriented x3 GENERAL APPEARANCE: cooperative and comfortable ORIENTATION/CONSCIOUSNESS: Yes awake, Yes oriented to person, Yes oriented to place and Yes oriented to time Chest: COMMONS NORMALS: normal inspection of the chest and normal palpation of entire chest wall CHEST: Yes Symmetrical chest wall rise Resp: COMMON NORMALS: normal respiratory effort, No retractions, No use of accessory muscles and clear to auscultation bilaterally EFFORT & INSPECTION: Yes symmetric chest movement AUSCULTATION: clear to auscultation bilaterally Cardio: COMMON NORMALS: regular rate, regular rhythm, S1 normal heart sound present, S2 normal heart sound present, No gallops present (Cardio), No clicks present (Cardio), No murmurs present (Cardio) and No rub (Cardio) RATE: r egular rate RHYTHM: regular rhythm HEART SOUNDS: S1 normal heart sound present and S2 normal heart sound present PERIPHERAL PULSES: radial pulses present Extremity: GENERAL: Yes edema (1+ pitting edema bilateral lower extremities) Neuro: COMMON NORMALS: patient oriented x3 and moves all extremities S ENSORIUM/ORIENTATION: Yes oriented to person, Yes oriented to place and Yes oriented to time Data 10/12/24 00:58 10/12/24 00:58 A&P Assessment and plan (1) Non-ST elevation (NSTEMI) myocardial infarction: (2) Acute CHF: (3) Accelerated hypertension: (4) Ischemic cardiomyopathy: (5) CKD (chronic kidney disease): Plan He has diuresed fairly well in the last 24 hours, will plan for coronary angiogram tomorrow. Echocardiogram with contrast has been performed due to possible apical thrombus in the LV, has not been read yet. N.p.o. after midnight tonight. Risks and benefits of coronary angiography were discussed with the patient including contrast-induced nephropathy and bleeding risk. Questions were answered and he is in agreement to proceed. PDMP PDMP Reviewed: Not Reviewed Attestations 2 Medical Necessity Statement*: Ischemic workup Coding Level of Care Code Acute Code for [facility] Diagnoses Non-ST elevation (NSTEMI) myocardial infarction I21.4 Acute CHF I50.9 Accelerated hypertension I10 Ischemic cardiomyopathy I25.5 CKD (chronic kidney disease) N18.9
[2024-10-12 10:24] LABS: Bilirubin Urine Negative (Negative); Blood Urine Negative (Negative); Glucose Urine UA Negative (Normal); Ketones Urine Negative (Negative); Leukocyte Esterase Urine Negative (Negative); Nitrate Urine Negative (Negative); Protein Urine Negative (Negative); Specific Gravity, Urine 1.007 (1.005-1.030); Urine Appearance Clear (CLEAR); Urine Color Yellow (Yellow); Urobilinogen Urine 0.2 mg/dL (Negative)
[2024-10-12 10:27] LABS: Add Urine Microscopic? YES; Bacteria Urine None Seen /hpf; RBC Urine 0-2 /hpf (0-2); Squamous Epithelial Cell Urine 0-5 /hpf (0-5); WBC Urine 0-5 /hpf (0-5)
[2024-10-12 10:30] LABS: Amphetamines Screen Urine Negative (Negative); Barbiturates Screen Urine Negative (Negative); Benzodiazepines Screen Urine Negative (Negative); Cocaine Screen Urine Negative (Negative); Opiate Screen Urine Positive (Negative); PCP Screen Urine Negative (Negative); THC Screen Urine Negative (Negative)
[2024-10-12 11:10] LABS: Potassium, Radom Urine 18 mmol/L; Urine Creatinine 17 mg/dL (39-259); Urine Random Chloride 132 mmol/L; Urine Random Sodium 126 mmol/L
--- NOTE | 2024-10-12 13:07 | P.PN_ITS ---
Subjective 2 Subjective: No acute events overnight. States he is feeling slightly better. Denies any chest pain overnight. Blood pressures overnight were elevated for which somehow he was never started on the ordered nitro drip but was given pushes of IV metoprolol. Currently on 2 L of oxygen supplementation. Vitals/I&O/Wt Last Vital Signs Temp 98.4 F 10/12/24 12:00 Pulse 70 10/12/24 12:00 Resp 22 H 10/12/24 12:00 BP 119/67 10/12/24 12:00 Pulse Ox 96 10/12/24 12:00 O2 Del Method Nasal Cannula 10/12/24 12:00 O2 Flow Rate 2 10/12/24 12:00 10/11/24 10/12/24 10/12/24 22:59 06:59 14:59 Intake Total 138.6 / 138.6 179.1 / 179.1 Output Total 675 / 675 1050 / 1725 225 / 225 Balance -675 / -675 -911.4 / -1586.4 -45.9 / -45.9 Weight last 48 hrs Weight 74 kg Weight 74.843 kg Physical Exam 2 Narrative: General: No acute distress, AO x3 HEENT: PERRLA, pupils bilaterally equal and reactive Chest: Normal vesicular breath sounds, bilateral lower zone soft crackles present, equal good air entry bilaterally CVS: S1-S2 regular, no murmurs, no tachycardia, S3 gallops, no rubs Abdomen: Soft, nontender, no organomegaly, bowel sounds present Neuro: No focal deficits, no facial deformity, AO x3, power 5/5 in all limbs Data 10/12/24 00:58 10/12/24 00:58 A&P Assessment and plan (1) Non-ST elevation (NSTEMI) myocardial infarction: High concerns for delayed presentation. Patient has remained chest pain-free. Echocardiogram shows low EF with concerns for akinesia of the apex and possible LV thrombus. Appreciate cardiology recommendations. Continue with heparin drip. Continue with aspirin 81 mg daily, will add Plavix 75 mg daily, atorvastatin 20 mg daily, given elevated blood pressures will switch from metoprolol to carvedilol 6.25 mg twice daily which will also be helpful with congestive heart failure. (2) Acute CHF: Echocardiogram shows EF of 1520% with global LV hypokinesia and akinetic apical wall with possibility of apical thrombus, mild to moderate MR, mild AI, mild PI, mild TR. Repeat echocardiogram with contrast limited for LV thrombus. Fluid restriction to 1500 cc. IV Lasix 40 mg twice daily. Daily weights. Strict input output charting. Depending on the renal functions and blood pressures will uptitrate GDMT for heart failure. Patient will most likely need LifeVest on discharge. (3) Accelerated hypertension: Goal blood pressure less than 140/90 mmHg. Switch to Coreg as above. Nitro drip never started. Uptitrate as per goal blood pressure. (4) Ischemic cardiomyopathy: (5) Hypertension: (6) CKD (chronic kidney disease): Baseline creat of 1.3-1.6 Current creat 1.3. Check Renal USG Appreciate UA, urine lytes, urine creat (7) LV (left ventricular) mural thrombus: Plan Full code Cardiac diet, n.p.o. after midnight Heparin drip will be sufficient for DVT prophylaxis PUD prophylaxis?Protonix Transfer to [facility]. PDMP PDMP Reviewed: Not Reviewed Attestations 2 Medical Necessity Statement*: Requires further hospitalization for management of congestive heart failure in setting of ischemic cardiomyopathy with EF of 15% in setting of delayed presentation of IL, possible LV thrombus Diagnoses Non-ST elevation (NSTEMI) myocardial infarction I21.4 Acute CHF I50.9 Accelerated hypertension I10 Ischemic cardiomyopathy I25.5 Essential hypertension I10 Hypertension type: essential hypertension CKD (chronic kidney disease) N18.9 LV (left ventricular) mural thrombus I51.3
--- NOTE | 2024-10-12 13:10 | USR_ITS ---
PROCEDURE INFORMATION: Exam: US Retroperitoneal, Complete, Kidneys and Bladder Exam date and time: 10/12/2024 4:11 PM Age: 84 years old Clinical indication: Condition or disease; Other: Ckd TECHNIQUE: Imaging protocol: Real-time ultrasound of the retroperitoneum with image documentation. Complete exam focused on the bilateral kidneys and urinary bladder. COMPARISON: US renal BI* [id number] 07/02/2022 12:05 PM FINDINGS: Right kidney: Right kidney measuring 9.7 x 3.8 x 3.7 cm. No hydronephrosis or urolithiasis. Left kidney: Left kidney measuring 9.1 x 4.3 x 3.9 cm. No hydronephrosis or urolithiasis. Left renal cortical simple cyst measuring 1.0 x 1.6 x 1.3 cm. Urinary bladder: Unremarkable. Pleural spaces: Small left pleural effusion. Gallbladder: Cholelithiasis. US/US renal BI* [id number] IMPRESSION: 1. No identified acute renal pathology. 2. Cholelithiasis. 3. Small left pleural effusion.
[2024-10-12] MEDS: perflutren protein-a microsphr 0.22 mg/mL SDV 3 mL IV (14:46)
[2024-10-12 16:38] LABS: Partial Thromboplastin Time 58.3 SECONDS (23.9-36.7)
[2024-10-12] MEDS: atorvastatin 40 mg Tablet 80 MG PO (20:02)
[2024-10-12] MEDS: pantoprazole 40 mg SDV IVP (20:03)
[2024-10-12] MEDS: heparin drip 25,000 UNIT/500 ML PREMIX 17 UNIT IV (20:04)
[2024-10-12 22:26] LABS: Partial Thromboplastin Time 57.9 SECONDS (23.9-36.7)
[2024-10-13] VITALS (17 sets, daily range): BP systolic 108–161; BP diastolic 67–108; PULSE 67–90; RESP 12–24; TEMP 36.4–37.1; O2SAT 69–97
[2024-10-13 04:37] LABS: Basophils % 0.4 %; Eosinophils # 0.1 10^3/uL (0.0-0.8); Eosinophils % 2.3 %; Hematocrit 46.1 % (37-53); Lymphocytes # 0.9 10^3/uL (0.8-4.8); Lymphocytes % 17.8 %; Mean Corpuscular HGB Conc 34.1 g/dL (30-55); Mean Corpuscular Hemoglobin 31.3 pg (27-33); Mean Corpuscular Volume 91.8 fl (82-101); Mean Platelet Volume 9.9 fL (7.4-10.4); Monocytes # 0.5 10^3/uL (0.2-0.9); Monocytes % 8.9 %; Neutrophils # 3.65 10^3/uL (1.8-7.7); Neutrophils % 70.4 %; Nucleated Red Blood Cells % 0 %; Platelet Count 154 10^3/cmm (157-399); Red Blood Count 5.02 10^6/uL (3.85-5.65); Red Cell Distribution Width 12.9 % (12.1-15.1); White Blood Count 5.18 10^3/uL (3.29-11.43)
[2024-10-13 04:50] LABS: Partial Thromboplastin Time 67.4 SECONDS (23.9-36.7)
[2024-10-13 04:55] LABS: Alanine Aminotransferase 17 U/L (0-41); Albumin Level 3.5 g/dL (3.5-5.2); Alkaline Phosphatase 87 U/L (40-130); Anion Gap 18.3 (5-19); Aspartate Amino Transferase 18 U/L (0-40); Blood Urea Nitrogen 33 mg/dL (8-23); Calcium 8.5 mg/dL (8.5-10.5); Carbon Dioxide 24 mmol/L (22-29); Chloride 104 mmol/L (98-107); Creatinine Clr Calc Pharmacy 34.1271; Glucose 109 mg/dL (65-115); Osmolality Calculated 304 mOsm/kg (285-295); Phosphorus 3.7 mg/dL (2.5-4.5); Potassium 3.3 mmol/L (3.5-5.1); Sodium 143 mmol/L (136-145); Total Protein 6.5 g/dL (6.6-8.7)
[2024-10-13] MEDS: sodium chloride 0.9% 1,000 ML 50 ML IV ×2 (05:05→17:08)
[2024-10-13] MEDS: carvedilol 6.25 mg Tablet PO ×2 (08:50→17:24)
[2024-10-13] MEDS: docusate sodium 100 mg Capsule PO (08:50)
[2024-10-13] MEDS: aspirin 81 mg EC Tablet PO (08:50)
--- NOTE | 2024-10-13 09:14 | P.PN_ITS ---
<Statement entered by Troy Palacios M.D - 10/14/24 14:22> Patient was evaluated and cared for in conjunction with an advanced practice practitioner.? I personally examined the patient and reviewed the chart and all pertinent data including imaging, telemetry, and laboratory results.? I discussed the patient in detail with the advanced practice practitioner.? Please see? their note for complete progress note, testing results and agreed upon plan of care for the patient. Plan was to perform coronary angiogram today however creatinine increased. Will hold Lasix and give gentle fluids. Recheck creatinine and if improving, will plan on coronary angiogram tomorrow morning. N.p.o. after midnight. Continue IV heparin as patient has LV thrombus GENERAL: Patient is alert, awake and oriented x3. HEART: Regular S1 and S2 LUNGS: Clear to auscultate bilaterally. CENTRAL NERVOUS SYSTEM: Grossly nonfocal. EXTREMITIES: Lower extremities without edema bilaterally. Subjective 2 Subjective: He has not had any chest pain or shortness of breath overnight, diuresed well, - 1800 mL in last 24 hours, -3400 mL cumulative. Creatinine bumped to 1.7 this morning (1.3 yesterday), will delay coronary angiogram due to BETH, hold Lasix today and recheck labs tomorrow. Tentative plan for left heart cath tomorrow if renal function has improved. Vitals/I&O/Wt Last Vital Signs Temp 97.6 F 10/13/24 04:00 Pulse 75 10/13/24 05:45 Resp 17 10/13/24 05:00 BP 138/88 10/13/24 05:00 Pulse Ox 97 10/13/24 05:00 O2 Del Method Nasal Cannula 10/12/24 16:00 O2 Flow Rate 2 10/12/24 16:00 10/12/24 10/13/24 10/13/24 22:59 06:59 14:59 Intake Total 488.000 / 1176.750 109.65 / 1176.750 Output Total 725 / 3025 1250 / 3025 Balance -237.000 / -1848.250 -1140.35 / -1848.250 Weight last 48 hrs Weight 163 lb 8 oz Weight 163 lb 8 oz Weight 163 lb 2.273 oz Weight 165 lb Physical Exam 2 Const: COMMON NORMALS: no acute distress and patient oriented x3 GENERAL APPEARANCE: cooperative and comfortable ORIENTATION/CONSCIOUSNESS: Yes awake, Yes oriented to person, Yes oriented to place and Yes oriented to time Chest: COMMONS NORMALS: normal inspection of the chest and normal palpation of entire chest wall CHEST: Yes Symmetrical chest wall rise Resp: COMMON NORMALS: normal respiratory effort, No retractions, No use of accessory muscles and clear to auscultation bilaterally EFFORT & INSPECTION: Yes symmetric chest movement AUSCULTATION: clear to auscultation bilaterally Cardio: COMMON NORMALS: regular rate, regular rhythm, S1 normal heart sound present, S2 normal heart sound present, No gallops present (Cardio), No clicks present (Cardio), No murmurs present (Cardio) and No rub (Cardio) RATE: r egular rate RHYTHM: regular rhythm HEART SOUNDS: S1 normal heart sound present and S2 normal heart sound present PERIPHERAL PULSES: radial pulses present Extremity: COMMON NORMALS: no pedal edema Neuro: COMMON NORMALS: patient oriented x3 and moves all extremities S ENSORIUM/ORIENTATION: Yes oriented to person, Yes oriented to place and Yes oriented to time Data 10/13/24 04:20 10/13/24 04:20 A&P Assessment and plan (1) LV (left ventricular) mural thrombus: (2) Ischemic cardiomyopathy: (3) Non-ST elevation (NSTEMI) myocardial infarction: (4) Acute CHF: (5) Hypertension: Plan Echocardiogram is still concerning for apical thrombus, will recommend continued anticoagulation with apixaban 5 mg twice a day, to continue after discharge. Plan for coronary angiogram tomorrow if renal function improved. Continue aspirin, atorvastatin, carvedilol. Amlodipine started for uncontrolled hypertension. Hold Lasix today. When family arrives later today we will discuss LifeVest after discharge. PDMP PDMP Reviewed: Not Reviewed Attestations 2 Medical Necessity Statement*: Ischemic workup, CHF Coding Level of Care Code Acute Code for [facility] Diagnoses LV (left ventricular) mural thrombus I51.3 Ischemic cardiomyopathy I25.5 Non-ST elevation (NSTEMI) myocardial infarction I21.4 Acute CHF I50.9 Essential hypertension I10 Hypertension type: essential hypertension
[2024-10-13] MEDS: amlodipine 5 mg Tablet PO (09:57)
[2024-10-13 10:56] LABS: Partial Thromboplastin Time 32.2 SECONDS (23.9-36.7)
[2024-10-13] MEDS: heparin 5,000 unit/mL INJ 1 mL IVP ×2 (11:16→18:58)
--- NOTE | 2024-10-13 12:27 | PC.NURSE ---
Report was called to ABBY Merrill in [facility]. All belongings were transferred with the patient. Patient was stable during transfer.
--- NOTE | 2024-10-13 12:41 | P.PN_ITS ---
Subjective 2 Subjective: No acute events overnight. Patient states she is feeling a lot better. Denies any difficulty in breathing. On room air. Hemodynamically stable. Blood pressure slightly elevated today morning. Vitals/I&O/Wt Last Vital Signs Temp 98.0 F 10/13/24 12:00 Pulse 86 10/13/24 12:00 Resp 23 H 10/13/24 12:00 BP 140/82 10/13/24 12:00 Pulse Ox 91 10/13/24 09:00 O2 Del Method Room Air 10/13/24 09:00 O2 Flow Rate 2 10/12/24 16:00 10/12/24 10/13/24 10/13/24 22:59 06:59 14:59 Intake Total 488.000 / 1067.100 109.65 / 1176.750 224.833 / 224.833 Output Total 725 / 1775 1250 / 3025 Balance -237.000 / -707.900 -1140.35 / -1848.250 224.833 / 224.833 Weight last 48 hrs Weight 74.162 kg Weight 74.162 kg Weight 74 kg Weight 74.843 kg Physical Exam 2 Narrative: General: No acute distress, AO x3 HEENT: PERRLA, pupils bilaterally equal and reactive Chest: Normal vesicular breath sounds, bilateral lower zone soft crackles present, equal good air entry bilaterally CVS: S1-S2 regular, no murmurs, no tachycardia, S3 gallops, no rubs Abdomen: Soft, nontender, no organomegaly, bowel sounds present Neuro: No focal deficits, no facial deformity, AO x3, power 5/5 in all limbs Data 10/13/24 04:20 10/13/24 04:20 A&P Assessment and plan (1) Non-ST elevation (NSTEMI) myocardial infarction: High concerns for delayed presentation. Patient has remained chest pain-free. Echocardiogram shows low EF with concerns for akinesia of the apex and possible LV thrombus. Appreciate cardiology recommendations. Plan was for cardiac angiogram today but on hold because of BETH. Plan to monitor renal functions and possible angiogram in next 24 hours if renal functions trending down. Continue with heparin drip. Continue with aspirin 81 mg daily, atorvastatin 20 mg daily, carvedilol 6.25 mg twice daily. (2) Acute CHF: Acute systolic decompensated heart failure Echocardiogram shows EF of 15?20% with global LV hypokinesia and akinetic apical wall with possibility of apical thrombus, mild to moderate MR, mild AI, mild PI, mild TR. Repeat echocardiogram with contrast limited for LV thrombus. Fluid restriction to 1500 cc. Patient overall around 3.5 L negative. Seems euvolemic. Hold off on diuretics for now. Continue with daily weights. Strict input output charting. Depending on the renal functions and blood pressures will uptitrate GDMT for heart failure. Patient will most likely need LifeVest on discharge. (3) Accelerated hypertension: Goal blood pressure less than 140/90 mmHg. Continue with Coreg. Blood pressure slightly elevated. Add amlodipine 5 mg oral daily. Will uptitrate as for goal blood pressure. Will add guideline directed medical therapy for heart failure with possibility of TG/ARB/Arni depending on renal functions and blood pressures. (4) Ischemic cardiomyopathy: (5) Hypertension: (6) CKD (chronic kidney disease): Baseline creat of 1.3-1.6 Creatinine up to 1.7. Most likely in setting of dehydration from diuresis. Patient overall 3.5 L negative. IV fluid with NS at 50 cc/h while monitoring for fluid overload for next 12 hours. Repeat BMP in afternoon. Medical reconciliation done for nephrotoxic drugs. Appreciate UA, urine lytes, urine creat (7) LV (left ventricular) mural thrombus: Appreciate echo with contrast. Ruled out. Plan Full code Cardiac diet, n.p.o. after midnight Heparin drip will be sufficient for DVT prophylaxis PUD prophylaxis?Protonix PDMP PDMP Reviewed: Not Reviewed Attestations 2 Medical Necessity Statement*: Requires further hospitalization for management of acute decompensated systolic heart failure in a patient with concerns for delayed presentation AR, ischemic cardiomyopathy, BETH on CKD. Diagnoses Non-ST elevation (NSTEMI) myocardial infarction I21.4 Acute systolic congestive heart failure I50.21 Heart failure type: systolic Accelerated hypertension I10 Ischemic cardiomyopathy I25.5 Essential hypertension I10 Hypertension type: essential hypertension CKD (chronic kidney disease) N18.9 LV (left ventricular) mural thrombus I51.3
--- NOTE | 2024-10-13 15:57 | PC.SOCIAL ---
IMM updated IMM dated and initialed copy given to patient and Copy placed in chart.
[2024-10-13 16:04] LABS: Anion Gap 15.6 (5-19); Blood Urea Nitrogen 32 mg/dL (8-23); Calcium 8.3 mg/dL (8.5-10.5); Carbon Dioxide 25 mmol/L (22-29); Chloride 104 mmol/L (98-107); Creatinine Clr Calc Pharmacy 36.2927; Glucose 127 mg/dL (65-115); Osmolality Calculated 300 mOsm/kg (285-295); Potassium 3.6 mmol/L (3.5-5.1); Sodium 141 mmol/L (136-145)
[2024-10-13] MEDS: heparin drip 25,000 UNIT/500 ML PREMIX 26 UNIT IV (19:23)
[2024-10-13] MEDS: pantoprazole 40 mg SDV IVP (20:39)
[2024-10-13] MEDS: atorvastatin 40 mg Tablet 80 MG PO (20:39)
[2024-10-14] VITALS (24 sets, daily range): BP systolic 108–170; BP diastolic 71–123; PULSE 72–119; RESP 10–26; TEMP 36.4–36.9; O2SAT 88–96
[2024-10-14 01:57] LABS: Partial Thromboplastin Time 203.1 SECONDS (23.9-36.7)
[2024-10-14 05:48] LABS: Basophils % 0.4 %; Eosinophils # 0.3 10^3/uL (0.0-0.8); Eosinophils % 4.9 %; Hematocrit 42.2 % (37-53); Lymphocytes # 0.8 10^3/uL (0.8-4.8); Lymphocytes % 14.6 %; Mean Corpuscular HGB Conc 33.4 g/dL (30-55); Mean Corpuscular Hemoglobin 30.6 pg (27-33); Mean Corpuscular Volume 91.5 fl (82-101); Mean Platelet Volume 10.7 fL (7.4-10.4); Monocytes # 0.5 10^3/uL (0.2-0.9); Monocytes % 8.8 %; Neutrophils # 3.64 10^3/uL (1.8-7.7); Neutrophils % 70.9 %; Nucleated Red Blood Cells % 0 %; Platelet Count 154 10^3/cmm (157-399); Red Blood Count 4.61 10^6/uL (3.85-5.65); White Blood Count 5.13 10^3/uL (3.29-11.43)
[2024-10-14 06:00] LABS: Alanine Aminotransferase 18 U/L (0-41); Albumin Level 3.2 g/dL (3.5-5.2); Alkaline Phosphatase 84 U/L (40-130); Anion Gap 17.4 (5-19); Aspartate Amino Transferase 18 U/L (0-40); Blood Urea Nitrogen 32 mg/dL (8-23); Calcium 8.3 mg/dL (8.5-10.5); Carbon Dioxide 22 mmol/L (22-29); Chloride 105 mmol/L (98-107); Creatinine Clr Calc Pharmacy 41.4774; Globulin 2.8 g/dL (1.3-4.6); Glucose 103 mg/dL (65-115); Magnesium 1.9 mg/dL (1.7-2.3); Osmolality Calculated 299 mOsm/kg (285-295); Phosphorus 3.3 mg/dL (2.5-4.5); Potassium 3.4 mmol/L (3.5-5.1); Sodium 141 mmol/L (136-145); Total Bilirubin 0.8 mg/dL (0.15-1.2)
[2024-10-14] MEDS: sodium chloride 0.9% 1,000 ML 50 ML IV (06:19)
[2024-10-14] MEDS: diphenhydrAMINE 50 mg Capsule PO (06:19)
--- NOTE | 2024-10-14 07:21 | W.PM.OPSUD ---
Surgery/Procedure H&P Update DATE OF PROCEDURE: October 14, 2024 DATE H&P PERFORMED: 10/14/24 H&P UPDATE INFORMATION: I have reviewed H&P completed within last 30 days, I have examined patient prior to procedure and No changes to prior documentation PREOP DIAGNOSIS: NSTEMI PRIMARY INDICATION FOR PROCEDURE: NSTEMI PLANNED PROCEDURE: Left heart cath with possible percutaneous coronary intervention PATIENT REASSESSED PRIOR TO SEDATION, WITH NO CHANGE NOTED: Yes PHYSICAL EXAM: alert, oriented x 3, clear to auscultation bilaterally and regular rate & rhythm AIRWAY EVAL/ANESTHESIA PLAN: normal airway, ASA III, Local Anesthesia, Risks, benefits & alternatives of sedation and/or procedure discussed and Patient agrees to continue as planned ADDITIONAL INFORMATION: Moderate sedation
--- NOTE | 2024-10-14 07:42 | PM.PROC ---
Procedure Note: Date of procedure: 10/14/24 Pre-procedure diagnosis: NSTEMI/ Late [place] presentation Post-procedure diagnosis: other (Severe multivessel coronary artery disease) Procedure: Left main artery has distal vessel 30% stenosis. Left circumflex artery has mild to moderate luminal irregularities. LAD is totally occluded in the midsegment. Proximal to mid vessel has diffuse disease. Medium sized diagonal artery has severe diffuse disease. 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 PLV has severe 90% stenosis Patient had late [place] presentation. Has severe LV dysfunction. Will recommend guideline directed optimal heart failure therapy and lifevest. If has chest pain, can consider stress testing as outpatient but given diffuse disease, medical management is best option at time. Performing Provider: Troy Palacios Estimated blood loss (mL): 5 Complications: None Condition: stable Disposition: floor Coding Level of Care Code Acute Code for [facility] Fwd
--- NOTE | 2024-10-14 07:54 | ECG_ITS ---
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 Measurements Intervals [place] Rate: 100 P: 123 VA: 212 QRS: -24 QRSD: 105 T: 170 QT: 351 QTc: 453 Interpretive Statements SINUS TACHYCARDIA WITH FIRST DEGREE AV BLOCK POSSIBLE LEFT ATRIAL ENLARGEMENT [-0.1mV P-WAVE IN V1/V2] LEFT VENTRICULAR HYPERTROPHY AND ST-T CHANGE [VOLTAGE CRITERIA PLUS ST/T ABNORMALITY] INFERIOR MYOCARDIAL INFARCTION , OF INDETERMINATE AGE [40+ ms Q WAVE AND/OR ST/T ABNORMALITY IN II/aVF] ANTEROSEPTAL MYOCARDIAL INFARCTION , OF INDETERMINATE AGE [40+ ms Q WAVE IN V1-V4] Compared to ECG 10/11/2024 23:58:30 Left ventricular hypertrophy now present ST (T wave) deviation now present Myocardial infarct finding still present Electronically Signed On 10-17-2024 11:43:55 CDT by Troy Palacios M.D. [email or web address] [id number]
[2024-10-14] MEDS: nitroglycerin 0.4 mg sublingual Tablet SUBLINGUAL ×2 (07:56→08:05)
[2024-10-14] MEDS: hyDRALAzine 20 mg/mL INJ 1 mL 10 MG IVP (07:59)
--- NOTE | 2024-10-14 08:06 | PC.NURSE ---
Patient transferred back to CSU from lab analyst at 0745 with a right radial TR-band in place. Patient has been complaining of chest pressure at 10/10. Provider is updated and ordered nitro SQ and EKG. Provider also order to give the PRN hydralazine 10mg and if his blood pressure doesn't come down in 10 min to repeat. Also okay to give 2nd nitro.
[2024-10-14] MEDS: morphine 4 mg/mL SDV 1 mL 2 MG IVP (08:13)
--- NOTE | 2024-10-14 08:25 | PC.NURSE ---
Dr Palacios ordered to give him xanax 0.25mg once and start a nitro drip. Orders placed
[2024-10-14] MEDS: ALPRAZolam 0.5 mg Tablet 0.25 MG PO (08:39)
[2024-10-14] MEDS: nitroglycerin drip 50 MG/250 ML PREMIX IV (08:39)
--- NOTE | 2024-10-14 09:31 | ECG_ITS ---
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 Measurements Intervals [place] Rate: 83 P: 60 [place]: 228 QRS: -53 QRSD: 114 T: 156 QT: 433 QTc: 511 Interpretive Statements SINUS RHYTHM WITH FIRST DEGREE AV BLOCK POSSIBLE LEFT ATRIAL ENLARGEMENT [-0.1mV P-WAVE IN V1/V2] INFERIOR MYOCARDIAL INFARCTION , POSSIBLY ACUTE [40+ ms Q WAVE AND/OR ST/T ABNORMALITY IN II/aVF] ANTEROSEPTAL MYOCARDIAL INFARCTION , PROBABLY RECENT [40+ ms Q WAVE IN V1-V4] ACUTE NC Compared to ECG 10/14/2024 07:54:23 Sinus tachycardia no longer present Left ventricular hypertrophy no longer present ST (T wave) deviation no longer present Myocardial infarct finding still present Electronically Signed On 10-17-2024 11:43:17 CDT by Troy Palacios M.D. [id number] [id number]
--- NOTE | 2024-10-14 09:59 | PC.NURSE ---
Patient went back to cathead worker at 0940.
--- NOTE | 2024-10-14 10:36 | PM.PROC ---
Procedure Note: Date of procedure: 10/14/24 Pre-procedure diagnosis: STEMI Post-procedure diagnosis: other (Total thrombotic occlusion of proximal RCA s/p PCI with 1 stent) Procedure: Patient had diagnostic coronary angiogram performed earlier today. On the floor patient started complaining of severe severe substernal chest pain. EKG was obtained emergently that did not show ST elevation. Blood pressure control was done with IV antihypertensive medications. Nitro was also started. However patient continued having severe chest pain. We repeated EKG that showed acute ST elevation VA in inferior leads. Patient was emergently brought to the cardiac Manager Recruitment. RCA had proximal vessel 100% occlusion. This is the culprit vessel for STEMI. He underwent successful revascularization with 1 stent. KIKO-3 flow obtained with no residual stenosis. PLV has diffuse disease. Dual antiplatelet therapy with aspirin and plavix Aggrastat for 4 hours Performing Provider: Troy Palacios Estimated blood loss (mL): 10 Complications: None Condition: stable Disposition: ICU Coding Level of Care Code Acute Code for Peyton eDlarosa
--- NOTE | 2024-10-14 10:59 | PC.NURSE ---
Arrived from catheter builder, AO x4, Dr pink came to bedside advised to start heparin drip once sheath is out, ordered the morning coreg to be given now and continue fluids at 50 ml/hr x15 hours
[2024-10-14] MEDS: carvedilol 6.25 mg Tablet PO ×2 (11:05→16:58)
--- NOTE | 2024-10-14 13:06 | PM.PN ---
Subjective Subjective: Patient had coronary angiogram done this morning that showed a moderate to severe proximal RCA stenosis. LAD is totally occluded. RCA was aneurysmal and not clearly severe. We decided to medically manage and do outpatient stress test to better assess the lesion. However going back to room, patient started having chest pain. This is associated with nausea and no eating. Initial EKG did not show ST elevations however repeat EKG showed inferior leads ST elevation. Was emergently brought to cardiac Manager Data Warehousing and had total occlusion of proximal RCA. Underwent successful revascularization with 1 stent. Vitals/I&O/Wt Last Vital Signs Temp 97.5 F L 10/14/24 07:58 Pulse 80 10/14/24 08:00 Resp 22 H 10/14/24 08:13 BP 140/84 10/14/24 08:00 Pulse Ox 92 10/14/24 08:13 O2 Del Method Room Air 10/14/24 07:58 O2 Flow Rate 2 10/12/24 16:00 10/13/24 10/14/24 10/14/24 22:59 06:59 14:59 Intake Total 425.35 / 889.024 4515.9 / 1943.083 1.45 / 1.45 Balance 425.35 / 747.003 1201.9 / 1943.083 1.45 / 1.45 Weight last 48 hrs Weight 167 lb 8.821 oz Weight 163 lb 8 oz Weight 163 lb 8 oz Physical Exam Narrative: GENERAL: Patient is alert, awake and oriented x3. [] NECK: No jugular vein distension. [] HEENT: No cyanosis. No icterus. No pallor. [] HEART: Regular S1 and S2. No murmur, rub or gallop. [] LUNGS: Clear to auscultate bilaterally. [] CENTRAL NERVOUS SYSTEM: Grossly nonfocal. [] EXTREMITIES: Lower extremities with 1+ edema bilaterally. Data 10/14/24 04:37 10/14/24 04:37 A&P Assessment and plan (1) STEMI (ST elevation myocardial infarction): (2) Acute CHF: (3) Ischemic cardiomyopathy: (4) LV (left ventricular) mural thrombus: Plan Patient developed acute inferior lead ST elevation AK with occlusion of RCA. He has LV thrombus and likely this was from embolization from the heart. S/p PCI with 1 stent. Continue Aggrastat for 4 hours. Aspirin Plavix loaded. Resume heparin 4 hours post femoral sheath pull. Tomorrow can switch to oral anticoagulation Thank you for involving us with care of this patient. Please call with questions PDMP PDMP Reviewed: Not Reviewed Attestations Medical Necessity Statement*: Care expected to cross 2 midnights. Coding Level of Care Code Acute Code for [facility] Fwd Diagnoses STEMI (ST elevation myocardial infarction) I21.3 Acute systolic congestive heart failure I50.21 Heart failure type: systolic Ischemic cardiomyopathy I25.5 LV (left ventricular) mural thrombus I51.3
[2024-10-14 13:24] LABS: Partial Thromboplastin Time 120.5 SECONDS (23.9-36.7)
--- NOTE | 2024-10-14 13:51 | P.PN_ITS ---
Subjective 2 Subjective: No acute events overnight. Patient laying comfortably in bed on examination today. Today morning he underwent cardiac angiogram. He was found to have multivessel disease and decision was made to continue with medical therapy with possible need for stress test as an outpatient for angina though after procedure patient had acute chest pain and was found to have inferior ST elevation GA for which repeat cardiac angiogram was done and he was found to have 100% RCA occlusion for which he underwent PCI. When seen back in ICU patient seems comfortable. Blood pressures were elevated earlier today morning but better controlled now when seen in ICU. Now does not c/o chest pain Vitals/I&O/Wt Last Vital Signs Temp 97.5 F L 10/14/24 07:58 Pulse 80 10/14/24 08:00 Resp 22 H 10/14/24 08:13 BP 140/84 10/14/24 08:00 Pulse Ox 92 10/14/24 08:13 O2 Del Method Room Air 10/14/24 07:58 O2 Flow Rate 2 10/12/24 16:00 10/13/24 10/14/24 10/14/24 22:59 06:59 14:59 Intake Total 425.35 / 106.904 1633.9 / 1943.083 1.45 / 1.45 Balance 425.35 / 247.258 0232.9 / 1943.083 1.45 / 1.45 Weight last 48 hrs Weight 76 kg Weight 74.162 kg Weight 74.162 kg Physical Exam 2 Narrative: General: No acute distress, AO x3 HEENT: PERRLA, pupils bilaterally equal and reactive Chest: Normal vesicular breath sounds, bilateral lower zone soft crackles present, equal good air entry bilaterally CVS: S1-S2 regular, no murmurs, no tachycardia, S3 gallops, no rubs Abdomen: Soft, nontender, no organomegaly, bowel sounds present Neuro: No focal deficits, no facial deformity, AO x3, power 5/5 in all limbs Data 10/14/24 04:37 10/14/24 04:37 A&P Assessment and plan (1) STEMI (ST elevation myocardial infarction): (2) Non-ST elevation (NSTEMI) myocardial infarction: High concerns for delayed presentation. Patient has remained chest pain-free. Echocardiogram shows low EF with concerns for akinesia of the apex and possible LV thrombus. Appreciate cardiology recommendations. Found to have multivessel disease and cardiac angiogram on 10/14 followed by inferior STEMI. Post PCI to RCA. Continue with heparin drip given LV thrombus. Will transition to Eliquis in next 24 hours. Continue aspirin, Plavix, statin. Continue with current dose of Coreg. (3) Acute CHF: Acute systolic decompensated heart failure Echocardiogram shows EF of 15?20% with global LV hypokinesia and akinetic apical wall with possibility of apical thrombus, mild to moderate MR, mild AI, mild PI, mild TR. Repeat echocardiogram with contrast limited for LV thrombus. Fluid restriction to 1500 cc. Hold gentle hydration for cardiac angiogram. Start on oral Lasix 40 mg twice daily. Seems euvolemic. Check daily weights. Strict input output charting. Depending on the renal functions and blood pressures will uptitrate GDMT for heart failure. Patient will most likely need LifeVest on discharge. (4) Accelerated hypertension: Goal blood pressure less than 140/90 mmHg. Continue with Coreg. Plan to switch from amlodipine to Entresto in next 24 hours. Uptitrate guideline directed medical therapy for heart failure depending on renal functions and blood pressures. (5) Ischemic cardiomyopathy: (6) CKD (chronic kidney disease): Baseline creat of 1.3-1.6 Creatinine stable. Most likely in setting of dehydration from diuresis. Patient overall 3.5 L negative. Repeat BMP in afternoon. Medical reconciliation done for nephrotoxic drugs. Appreciate UA, urine lytes, urine creat (7) LV (left ventricular) mural thrombus: Appreciated cardiology recommendations. Patient found to have LV thrombus on repeat echocardiogram. Will need anticoagulation as an outpatient. (8) Heart failure, systolic, with acute decompensation: (9) Multi-vessel coronary artery stenosis: (10) Hypertension: Plan Full code Cardiac diet, Heparin drip will be sufficient for DVT prophylaxis PUD prophylaxis?Protonix PDMP PDMP Reviewed: Not Reviewed Attestations 2 Medical Necessity Statement*: Requires further hospitalization for management of ST elevation GA, ischemic cardiomyopathy, congestive heart failure, uncontrolled hypertension Critical Care Time: The high probability of a clinically significant, sudden or life threatening deterioration of the patient's [cardiac, renal] system(s) required my full and direct attention, intervention and personal management. The critical care time is as shown. This time is in addition to time spent performing any reported procedures but includes the following: [x] Data and vital sign review and interpretation [x] Patient assessment, examination and intervention [x] Documentation [x] Medication orders and management Critical Care Time (min): 70 Coding Level of Care Code Critical Care >/= 30 minutes Critical care time (in minutes): 70 The high probability of a clinically significant, sudden or life threatening deterioration, as referenced in this documentation, required my full and direct attention, intervention and personal management. The critical care time shown is in addition to time spent performing any reported separately billable procedures and includes the following: [x] Data and vital sign review and interpretation [x ] Patient assessment, examination and intervention [x] Medication orders and management [x] Patient/Family updates as able [x] Care Coordination and Documentation. Other Coding Information This patient has a high probability of clinically significant, sudden or life threatening deterioration of the patient's (neurological/pulmonary/cardiac/renal/ID/endocrine) systems required my full, direct attention, the highest level of physician preparedness for urgent intervention and personal management. I managed/supervised life or organ supporting interventions that required frequent physician assessment. I devoted my full attention in the ICU to the direct care of this patient for the period of time indicated above. Time I spent with family or surrogate(s) is included only if the patient was incapable of providing necessary information or participating in decision making. This time includes the following services provided: Telemetry review Hemodynamic interpretation, assessment and management Review and interpretation of CXR Review and interpretation of lab values Review and interpretation of microbiologic data and culture results Review of medications and administration Review and interpretation of Nutrition requirements and management Discussion of management with other consultants and services Clinical update to family members Diagnoses ST elevation myocardial infarction involving right coronary artery I21.11 Involved coronary artery: right coronary artery Non-ST elevation (NSTEMI) myocardial infarction I21.4 Acute systolic congestive heart failure I50.21 Heart failure type: systolic Accelerated hypertension I10 Ischemic cardiomyopathy I25.5 CKD (chronic kidney disease) N18.9 LV (left ventricular) mural thrombus I51.3 Heart failure, systolic, with acute decompensation I50.23 Multi-vessel coronary artery stenosis I25.10 Essential hypertension I10 Hypertension type: essential hypertension
[2024-10-14 15:39] LABS: Partial Thromboplastin Time 40.1 SECONDS (23.9-36.7)
--- NOTE | 2024-10-14 16:35 | PC.NURSE ---
R femoral sheath removed per protocol
[2024-10-14] MEDS: FUROsemide 40 mg Tablet PO (16:58)
--- NOTE | 2024-10-14 17:12 | PC.NURSE ---
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
--- NOTE | 2024-10-14 17:15 | PC.NURSE ---
Dr pink advised to restart heparin drip at 1830 2 hrs after sheath pull at previous rate in mar
[2024-10-14] MEDS: heparin drip 25,000 UNIT/500 ML PREMIX 19.5 UNIT IV (18:30)
--- NOTE | 2024-10-14 20:05 | ECG_ITS ---
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 Measurements Intervals [place] Rate: 81 P: 41 NC: 210 QRS: -28 QRSD: 106 T: 199 QT: 445 QTc: 518 Interpretive Statements SINUS RHYTHM WITH FIRST DEGREE AV BLOCK LEFT VENTRICULAR HYPERTROPHY AND ST-T CHANGE [VOLTAGE CRITERIA PLUS ST/T ABNORMALITY] ANTEROSEPTAL MYOCARDIAL INFARCTION , PROBABLY RECENT [40+ ms Q WAVE IN V1-V4] ACUTE SD Compared to ECG 10/14/2024 10:53:29 Left ventricular hypertrophy now present ST (T wave) deviation now present Myocardial infarct finding still present Electronically Signed On 10-17-2024 11:41:29 CDT by Troy Palacios M.D. [id number] [id number]
[2024-10-14] MEDS: pantoprazole 40 mg SDV IVP (20:09)
[2024-10-14] MEDS: atorvastatin 40 mg Tablet 80 MG PO (20:09)
[2024-10-14 20:59] LABS: Anion Gap 15.8 (5-19); Blood Urea Nitrogen 29 mg/dL (8-23); Calcium 8.2 mg/dL (8.5-10.5); Carbon Dioxide 22 mmol/L (22-29); Chloride 106 mmol/L (98-107); Glucose 160 mg/dL (65-115); Magnesium 2.1 mg/dL (1.7-2.3); Osmolality Calculated 299 mOsm/kg (285-295); Potassium 3.8 mmol/L (3.5-5.1); Sodium 140 mmol/L (136-145)
--- NOTE | 2024-10-14 21:19 | PC.NURSE ---
Dr. Lange called to get update on patient, ordered stat EKG, BMP, and Mag level. Results sent over to Dr. Lange and order received for 40meq PO Potassium and if patient more nsvt start amioderone drip.
[2024-10-14] MEDS: potassium chloride ER 20 mEq Tablet 40 MEQ PO (21:28)
[2024-10-14] MEDS: amiodarone 150 MG/100 ML PREMIX 400 MG IV (22:18)
[2024-10-15] VITALS (39 sets, daily range): BP systolic 111–148; BP diastolic 70–103; PULSE 61–81; RESP 3–33; TEMP 36.4–37.1; O2SAT 88–96
[2024-10-15 02:00] LABS: Partial Thromboplastin Time 72.3 SECONDS (23.9-36.7)
[2024-10-15 04:53] LABS: Basophils % 0.2 %; Eosinophils % 0.7 %; Lymphocytes # 0.7 10^3/uL (0.8-4.8); Lymphocytes % 13.1 %; Mean Corpuscular Hemoglobin 31.1 pg (27-33); Mean Corpuscular Volume 94.3 fl (82-101); Mean Platelet Volume 10.5 fL (7.4-10.4); Monocytes # 0.5 10^3/uL (0.2-0.9); Monocytes % 8.5 %; Neutrophils # 4.16 10^3/uL (1.8-7.7); Neutrophils % 76.9 %; Nucleated Red Blood Cells % 0 %; Platelet Count 152 10^3/cmm (157-399); Red Blood Count 4.56 10^6/uL (3.85-5.65); Red Cell Distribution Width 13.4 % (12.1-15.1); White Blood Count 5.41 10^3/uL (3.29-11.43)
[2024-10-15 07:53] LABS: Alanine Aminotransferase 39 U/L (0-41); Albumin Level 3.5 g/dL (3.5-5.2); Alkaline Phosphatase 79 U/L (40-130); Aspartate Amino Transferase 122 U/L (0-40); Blood Urea Nitrogen 31 mg/dL (8-23); Calcium 8.4 mg/dL (8.5-10.5); Carbon Dioxide 22 mmol/L (22-29); Globulin 2.7 g/dL (1.3-4.6); Glucose 136 mg/dL (65-115); Total Bilirubin 0.6 mg/dL (0.15-1.2); Total Protein 6.2 g/dL (6.6-8.7)
[2024-10-15] MEDS: docusate sodium 100 mg Capsule PO (08:01)
[2024-10-15] MEDS: aspirin 81 mg EC Tablet PO (08:01)
[2024-10-15] MEDS: carvedilol 6.25 mg Tablet PO ×2 (08:01→18:02)
[2024-10-15] MEDS: FUROsemide 40 mg Tablet PO ×2 (08:01→15:48)
[2024-10-15 08:07] LABS: Creatinine Clr Calc Pharmacy 38.5584
[2024-10-15 08:23] LABS: Anion Gap 17.1 (5-19); Chloride 105 mmol/L (98-107); Osmolality Calculated 299 mOsm/kg (285-295); Potassium 4.1 mmol/L (3.5-5.1); Sodium 140 mmol/L (136-145)
[2024-10-15 08:33] LABS: Partial Thromboplastin Time 82.7 SECONDS (23.9-36.7)
[2024-10-15] MEDS: ondansetron 2 mg/ML SDV 2 mL 4 MG IVP (08:58)
--- NOTE | 2024-10-15 10:22 | PC.NURSE ---
Verbal order from Dr. Palacios to give plavix and eliquis PO, after one hour turn off heparin drip.
[2024-10-15] MEDS: apixaban 5 mg Tablet PO ×2 (10:29→20:29)
[2024-10-15] MEDS: clopidogrel 75 mg Tablet PO (10:29)
--- NOTE | 2024-10-15 11:05 | PC.NURSE ---
Per Dr. Lange, heparin drip discontinued.
--- NOTE | 2024-10-15 13:48 | P.PN_ITS ---
Subjective 2 Subjective: No acute events overnight. Patient continued to have recurrent episodes of nonsustained VT yesterday for which she was started on amiodarone drip. Today morning seen sitting up in chair. States he is feeling a lot better. Denies any nausea vomiting, headache. Denies any chest pain. Blood pressure stable. Vitals/I&O/Wt Last Vital Signs Temp 97.6 F 10/15/24 04:00 Pulse 67 10/15/24 12:00 Resp 15 10/15/24 12:00 BP 121/89 10/15/24 12:00 Pulse Ox 89 L 10/15/24 12:00 O2 Del Method Room Air 10/15/24 09:30 O2 Flow Rate 2 10/12/24 16:00 10/14/24 10/15/24 10/15/24 22:59 06:59 14:59 Intake Total 1200 / 1467.325 468.614 / 1935.939 251.2 / 251.2 Output Total 300 / 300 Balance 1200 / 1467.325 168.614 / 1635.939 251.2 / 251.2 Weight last 48 hrs Weight 73.446 kg Weight 73.446 kg Weight 76 kg Physical Exam 2 Narrative: General: No acute distress, AO x3 HEENT: PERRLA, pupils bilaterally equal and reactive Chest: Normal vesicular breath sounds, bilateral lower zone soft crackles present, equal good air entry bilaterally CVS: S1-S2 regular, no murmurs, no tachycardia, S3 gallops, no rubs Abdomen: Soft, nontender, no organomegaly, bowel sounds present Neuro: No focal deficits, no facial deformity, AO x3, power 5/5 in all limbs Data 10/15/24 04:17 10/15/24 06:46 A&P Assessment and plan (1) STEMI (ST elevation myocardial infarction): (2) Non-ST elevation (NSTEMI) myocardial infarction: High concerns for delayed presentation. Patient has remained chest pain-free. Echocardiogram shows low EF with concerns for akinesia of the apex and possible LV thrombus. Appreciate cardiology recommendations. Found to have multivessel disease and cardiac angiogram on 10/14 followed by inferior STEMI. Post PCI to RCA. Continue with heparin drip given LV thrombus. Will transition to Eliquis in next 24 hours. Continue aspirin, Plavix, statin. Continue with current dose of Coreg. (3) Acute CHF: Acute systolic decompensated heart failure Echocardiogram shows EF of 15?20% with global LV hypokinesia and akinetic apical wall with possibility of apical thrombus, mild to moderate MR, mild AI, mild PI, mild TR. Repeat echocardiogram with contrast limited for LV thrombus. Fluid restriction to 1500 cc. Hold gentle hydration for cardiac angiogram. Start on oral Lasix 40 mg twice daily. Seems euvolemic. Check daily weights. Strict input output charting. Depending on the renal functions and blood pressures will uptitrate GDMT for heart failure. Patient will most likely need LifeVest on discharge. (4) Accelerated hypertension: Goal blood pressure less than 140/90 mmHg. Continue with Coreg. Plan to switch from amlodipine to Entresto in next 24 hours. Uptitrate guideline directed medical therapy for heart failure depending on renal functions and blood pressures. (5) Ischemic cardiomyopathy: (6) CKD (chronic kidney disease): Baseline creat of 1.3-1.6 Creatinine stable. Most likely in setting of dehydration from diuresis. Patient overall 3.5 L negative. Repeat BMP in afternoon. Medical reconciliation done for nephrotoxic drugs. Appreciate UA, urine lytes, urine creat (7) LV (left ventricular) mural thrombus: Appreciated cardiology recommendations. Patient found to have LV thrombus on repeat echocardiogram. Will need anticoagulation as an outpatient. (8) Heart failure, systolic, with acute decompensation: (9) Multi-vessel coronary artery stenosis: (10) Hypertension: (11) Nonsustained ventricular tachycardia: (12) Paroxysmal atrial fibrillation: Plan Full code Cardiac diet, Eliquis will be sufficient for DVT prophylaxis PUD prophylaxis?Protonix Plan for the day: Denies any chest pain. Seems euvolemic. Will switch from heparin drip to Eliquis 5 mg twice daily. Continue with DAPT. Continue with amiodarone drip as per protocol and switch to 400 mg twice daily from evening. Goal blood pressure less than 140/90 mmHg. For now continue with current dose of Coreg. If blood pressures and renal functions remain stable can start on low-dose of Arni in next 24 hours. Continue with fluid restriction to less than 1500 cc. Continue with Lasix 40 mg oral twice daily. Transfer to CSU. PDMP PDMP Reviewed: Not Reviewed Attestations 2 Medical Necessity Statement*: Requires further hospitalization for management of congestive heart failure, ischemic cardiomyopathy, ST elevation ID post PCI to RCA, nonsustained V. tach, LV thrombus Diagnoses ST elevation myocardial infarction involving right coronary artery I21.11 Involved coronary artery: right coronary artery Non-ST elevation (NSTEMI) myocardial infarction I21.4 Acute systolic congestive heart failure I50.21 Heart failure type: systolic Accelerated hypertension I10 Ischemic cardiomyopathy I25.5 CKD (chronic kidney disease) N18.9 LV (left ventricular) mural thrombus I51.3 Heart failure, systolic, with acute decompensation I50.23 Multi-vessel coronary artery stenosis I25.10 Essential hypertension I10 Hypertension type: essential hypertension Nonsustained ventricular tachycardia I47.29 Paroxysmal atrial fibrillation I48.0
[2024-10-15 13:49] LABS: Partial Thromboplastin Time 40.1 SECONDS (23.9-36.7)
--- NOTE | 2024-10-15 17:19 | PC.NURSE ---
Patient transferred to CSU room 104 via wheelchair on room air. Patient had no complaints or requests at the time of transfer. Patient resting in bed with RN at bedside, Wilson running per JUL. Patient oriented to room and call light use.
--- NOTE | 2024-10-15 17:25 | PC.NURSE ---
Patient transferred from ICU to CSU at 1710.
[2024-10-15] MEDS: amiodarone 200 mg Tablet 400 MG PO (20:27)
[2024-10-15] MEDS: atorvastatin 40 mg Tablet 80 MG PO (20:27)
[2024-10-15] MEDS: pantoprazole 40 mg SDV IVP (20:29)
--- NOTE | 2024-10-15 21:53 | PC.NURSE ---
Stopped the amio drip 1 hour after administering oral amodarone. Oral amiodarone given at 2026, amiodarone drip stopped at 2126
[2024-10-16] VITALS (9 sets, daily range): BP systolic 129–145; BP diastolic 80–97; PULSE 68–81; RESP 14–27; TEMP 36.3–36.9; O2SAT 92–96
[2024-10-16 02:48] LABS: Basophils % 0.2 %; Eosinophils # 0.1 10^3/uL (0.0-0.8); Eosinophils % 1.6 %; Hematocrit 41.3 % (37-53); Lymphocytes # 0.7 10^3/uL (0.8-4.8); Lymphocytes % 12.4 %; Mean Corpuscular HGB Conc 33.9 g/dL (30-55); Mean Corpuscular Hemoglobin 31.4 pg (27-33); Mean Corpuscular Volume 92.6 fl (82-101); Mean Platelet Volume 10.6 fL (7.4-10.4); Monocytes # 0.5 10^3/uL (0.2-0.9); Monocytes % 8.7 %; Neutrophils # 4.22 10^3/uL (1.8-7.7); Neutrophils % 76.7 %; Nucleated Red Blood Cells % 0 %; Platelet Count 141 10^3/cmm (157-399); Red Blood Count 4.46 10^6/uL (3.85-5.65); Red Cell Distribution Width 13.3 % (12.1-15.1)
[2024-10-16 03:17] LABS: Alanine Aminotransferase 40 U/L (0-41); Albumin Level 3.7 g/dL (3.5-5.2); Alkaline Phosphatase 84 U/L (40-130); Anion Gap 15.8 (5-19); Aspartate Amino Transferase 70 U/L (0-40); Blood Urea Nitrogen 38 mg/dL (8-23); Calcium 8.6 mg/dL (8.5-10.5); Carbon Dioxide 24 mmol/L (22-29); Chloride 107 mmol/L (98-107); Creatinine Clr Calc Pharmacy 30.4408; Globulin 2.3 g/dL (1.3-4.6); Glucose 117 mg/dL (65-115); Osmolality Calculated 306 mOsm/kg (285-295); Potassium 3.8 mmol/L (3.5-5.1); Sodium 143 mmol/L (136-145); Total Bilirubin 0.5 mg/dL (0.15-1.2)
--- NOTE | 2024-10-16 07:55 | PC.SOCIAL ---
IMM Update Pg. 2 of IMM updated and copy provided at bedside.
--- NOTE | 2024-10-16 09:37 | PC.CHAP ---
Pastoral Care Encounter/Spiritual Assessment Type of Contact [] Declined hospital supervisor visit [] Patient/Family/Request visit [] Outpatient visit [] Follow-up visit [] Physician referral [] Code/Alert [x] Routine visit [] Staff referral [] Actively dying [] Patient sleeping [] Family support [] [] Out of room [] Palliative care [] [] Receiving care in room [] Pre-surgical visit [] Trauma [] Long length of stay [] ICU visit [] Other: Relational/Emotional Strength [] Patient feels connected with others/family/visitors/staff [] Distress [] Loneliness/isolation [] Abandonment Spirituality of Patient [x] Person of April [] Attends Holiness of their April [x] Believes in Prayer [] Reads Bible or Faith materials [] There are Spiritual issues to be addressed Blender / Cook Interventions [x] Prayer [x] Active listening [] Non-anxious presence [] Spiritual/emotional support [] Crisis/trauma care [] Spiritual counseling [] Bereavement support [] Provided bereavement packet [x] Provided Bible/devotional materials [] Provided toy/stuffed animal, coloring book to patient or family member [] Provided Communion [] Anointing/[place] [] Salvation [x] Completed spiritual assessment [] Other: Impact on Illness or Injury [] Angry [] Fearful [] Anxious [] Often cries [] Exhaustion [] Unable to work [] Unable to attend jehovah's witness [] Unable to walk/stand [] Unable to read [] Unable to drive [] Unable to eat/drink [] Unable to sleep [] Unable to be with family [] Patient intubated [] Other: Summary Time spent with patient 5 min
[2024-10-16] MEDS: apixaban 5 mg Tablet PO ×2 (10:04→20:53)
[2024-10-16] MEDS: amiodarone 200 mg Tablet 400 MG PO ×2 (10:04→18:02)
[2024-10-16] MEDS: docusate sodium 100 mg Capsule PO ×2 (10:04→18:02)
[2024-10-16] MEDS: FUROsemide 40 mg Tablet PO (10:04)
[2024-10-16] MEDS: clopidogrel 75 mg Tablet PO (10:04)
[2024-10-16] MEDS: carvedilol 6.25 mg Tablet PO ×2 (10:04→18:02)
--- NOTE | 2024-10-16 10:54 | PC.NURSE ---
Per Dr Corrales, hold 1600 dose of Lasix due to BETH. Order changed by nurse.
--- NOTE | 2024-10-16 12:18 | P.PN_ITS ---
Subjective 2 Subjective: The patient was transferred from the ICU to the CSU yesterday. He was also switched from heparin drip to apixaban 5 mg twice daily. He was switched to amiodarone 400 mg p.o. twice daily, with the first dose on the evening of 10/15/2024. This morning, the patient has no complaints. He is eager to be discharged. He states that he is not used to lying in the bed all day. He is disappointed that he has an BETH, and has to be monitored further.He continues to deny any dizziness, lightheadedness, CP, palpitations, dyspnea, GI or symptoms. I spoke with the division sales manager's nurse practitioner about providing any necessary final recs from cardiology's perspective. Vitals/I&O/Wt Last Vital Signs Temp 97.6 F 10/16/24 11:59 Pulse 76 10/16/24 11:59 Resp 24 H 10/16/24 11:59 BP 132/84 10/16/24 11:59 Pulse Ox 96 10/16/24 11:59 O2 Del Method Room Air 10/16/24 11:59 O2 Flow Rate 2 10/12/24 16:00 10/15/24 10/16/24 10/16/24 22:59 06:59 14:59 Intake Total 513.11 / 964.31 120 / 120 Balance 513.11 / 964.31 120 / 120 Weight last 48 hrs Weight 72.484 kg Weight 72.484 kg Weight 73.446 kg Weight 73.446 kg Physical Exam 2 Narrative: Constitutional: GENERAL APPEARANCE: cooperative, comfortable and appears older than stated age; HENT: HEAD & SCALP: normocephalic and atraumatic; NOSE: external nose not normal EXTERNAL EAR: no external ears normal MOUTH: Normal oral and palatal mucosa present THROAT: posterior oropharynx normal Eye: PERRL, EOMI, normal conjunctiva b/l Neck: normal visual inspection, trachea midline, No anterior neck swelling, No tracheal deviation, no submandibular swelling, Thyroid normal , cervical ROM normal Lymph: no cervical, supraclavicular LAD Resp: no use of accessory muscles, CTAB, no w/r/r Cardio: RRR, no m/r/g, or clicks. 2+ radial and DP pulses. GI: normoactive bowel sounds, non-tender, non-distended, no guarding, no rigidity, no rebound tenderness, no hepatosplenomegaly. : Back/Pelvis: Deferred Extremity: No clubbing, No cyanosis and No edema Neuro: AO to person, place and time. CN normal except as noted. Normal gait present. 5/5 motor strength present throughout. Normal motor muscle tone present throughout. No tremor noted. No motor abnormalities present. No motor fasciculations present Psych: APPEARANCE: Yes grossly normal ATTITUDE: Yes calm and Yes engaged ACTIVITY/MOTOR BEHAVIOR: Yes appropriate eye contact SPEECH: Yes normal speech MOOD & AFFECT: Yes euthymic mood THOUGHT PROCESS: Normal thought process present THOUGHT CONTENT: Yes Normal thought content present ATTENTION/CONCENTRATION: Yes attention grossly intact MEMORY/COGNITION: Yes memory grossly intact Data 10/16/24 02:09 10/16/24 02:09 A&P Assessment and plan (1) Accelerated hypertension: (2) Ischemic cardiomyopathy: (3) Non-ST elevation (NSTEMI) myocardial infarction: (4) Acute CHF: (5) Multi-vessel coronary artery stenosis: Plan Mr. Eagle is an active 84yo man w/ a hx of longstanding HTN and allergic rhinitis who presented to the ED on 10/11/2024 w/ complaints of dyspnea and severe substernal CP that occurred 2 weeks prior and then resolved, and was found to have Q waves with ST elevation in the anterior and anterolateral lara, concerning for NSTEMI, in the setting of a late presentation of an IA, in addition to acute onset HFrEF. His ECHO on 10/11/2024 showed an EF of 15-20% w/ severe global hypokinesis w/ akinetic apical wall, possible LV apical thrombus and mild valvular regurtitation in all valves. He is s/p PCI on 10/14/2024 w/ severe multivessel CAD noted. Medical management using uideline directed optimal heart failure therapy and lifevest were recommended. (1) Non-ST elevation (NSTEMI) myocardial infarction: High concerns for delayed presentation. Patient has remained chest pain-free. Echocardiogram shows low EF with concerns for akinesia of the apex and possible LV thrombus. Appreciate cardiology recommendations. Continue with heparin drip. Continue with aspirin 81 mg daily, will add Plavix 75 mg daily, atorvastatin 20 mg daily, given elevated blood pressures, he wasl switched from metoprolol to carvedilol 6.25 mg twice daily which was also helpful with congestive heart failure. (2) Acute CHF: Echocardiogram shows EF of 1520% with global LV hypokinesia and akinetic apical wall with possibility of apical thrombus, mild to moderate MR, mild AI, mild PI, mild TR. - Patient is Euvolemic. Continue Aspirin, Atorvastatin, Plavix, Carvedilol. Hold Lasix, given BETH on CKD. see section 6. Fluid restriction to 1500 cc. IV Lasix 40 mg twice daily. Daily weights. Strict input output charting. Depending on the renal functions and blood pressures will uptitrate GDMT for heart failure. Patient will most likely need LifeVest on discharge. (3) Accelerated hypertension: -Goal blood pressure less than 130/90 mmHg. - On Coreg as above. (4) Ischemic cardiomyopathy: (5) Hypertension: (6)BETH on CKD (chronic kidney disease): likely due to over diuresis in the setting of contrast induced nephropathy. Baseline creat of 1.3-1.6 Current creat 1.3. Renal USG w/ no acute pathology. - Held Lasix. Encouraged oral po intake. Monitor renal function as well as strict I's and O's. (7) LV (left ventricular) mural thrombus: - On full dose Apixaban. Plan Full code Cardiac diet, n.p.o. after midnight Heparin drip will be sufficient for DVT prophylaxis PUD prophylaxis?Protonix PDMP PDMP Reviewed: Not Reviewed Attestations 2 Medical Necessity Statement*: The patient needs to remain hospitalized for his new onset BETH on CKD. Diagnoses Accelerated hypertension I10 Ischemic cardiomyopathy I25.5 Non-ST elevation (NSTEMI) myocardial infarction I21.4 Acute systolic congestive heart failure I50.21 Heart failure type: systolic Multi-vessel coronary artery stenosis I25.10
--- NOTE | 2024-10-16 13:58 | P.PN_ITS ---
<Statement entered by Troy Palacios M.D - 10/18/24 09:40> Patient was cared for in conjunction with an advanced practice practitioner.? I reviewed the chart and all pertinent data including imaging, telemetry, and laboratory results.? I discussed the patient in detail with the advanced practice practitioner.? Please see?their note for progress note, testing results and agreed upon plan of care for the patient. Subjective 2 Subjective: Patient status post PCI of the RCA. He is doing well overall with no complaints. He appears euvolemic. EF is 20%. LifeVest is going to be placed today. He did have a slight increase in his creatinine. His baseline is around 1.3. It is now 1.9 up from 1.5. Will avoid Entresto at this time due to this. He is currently getting amiodarone at 400 mg twice daily. Coreg is at 6.25 twice daily. Blood pressure stable at 132/84 and pulse is 76. He denies any chest pain or shortness of breath. Vitals/I&O/Wt Last Vital Signs Temp 97.6 F 10/16/24 11:59 Pulse 76 10/16/24 11:59 Resp 24 H 10/16/24 11:59 BP 132/84 10/16/24 11:59 Pulse Ox 96 10/16/24 11:59 O2 Del Method Room Air 10/16/24 11:59 O2 Flow Rate 2 10/12/24 16:00 10/15/24 10/16/24 10/16/24 22:59 06:59 14:59 Intake Total 513.11 / 964.31 120 / 120 Balance 513.11 / 964.31 120 / 120 Weight last 48 hrs Weight 159 lb 12.8 oz Weight 159 lb 12.8 oz Weight 161 lb 14.72 oz Weight 161 lb 14.72 oz Physical Exam 2 Narrative: General: No apparent distress, healthy appearing, well nourished HENMT: normoceophalic Muskuloskeletal: Full ROM Respiratory: Normal respiratory effort, clear to auscultation bilaterally throughout all lung [place], no use of accessory muscles Cardio: No JVD, regular rate, regular rhythm, S1 S2 normal, no murmurs, peripheral pulses 2+ radial palpated bilaterally GI: Normal to inspection, nondistended Extremities: Full ROM, normal, normal capillary refill, no cyanosis or edema Neuro: Alert and oriented x4, no focal motor deficits Psych: Affect normal, denies suicidal ideation, mental status grossly normal Skin: No rashes or lesions noted, no wounds Data 10/16/24 02:09 10/16/24 02:09 A&P Assessment and plan (1) STEMI (ST elevation myocardial infarction): (2) Acute CHF: (3) Ischemic cardiomyopathy: (4) LV (left ventricular) mural thrombus: (5) Acute kidney injury: (6) Atrial fibrillation: Plan Patient has acute kidney injury most likely due to diuresis and contrast-induced nephropathy. At this time recommend holding Lasix as patient is clinically euvolemic and giving him fluids at 50 cc an hour for about 8 hours. Recheck BNP this afternoodn. Continue to watch I&O. Recheck creatinine in the morning. Continue Eliquis 5 mg BID for afib and LV thrombus. Continue amiodarone. PDMP PDMP Reviewed: Not Reviewed Attestations 2 Medical Necessity Statement*: Deferred to primary. Coding Level of Care Code Acute Code for [facility] Diagnoses ST elevation myocardial infarction involving right coronary artery I21.11 Involved coronary artery: right coronary artery Acute systolic congestive heart failure I50.21 Heart failure type: systolic Ischemic cardiomyopathy I25.5 LV (left ventricular) mural thrombus I51.3 Acute kidney injury N17.9 Paroxysmal atrial fibrillation I48.0 Atrial fibrillation type: paroxysmal
[2024-10-16] MEDS: sodium chloride 0.9% 1,000 ML 50 ML IV (14:37)
[2024-10-16 16:16] LABS: Anion Gap 16.9 (5-19); Blood Urea Nitrogen 39 mg/dL (8-23); Calcium 8.5 mg/dL (8.5-10.5); Carbon Dioxide 24 mmol/L (22-29); Chloride 103 mmol/L (98-107); Creatinine Clr Calc Pharmacy 28.7638; Glucose 109 mg/dL (65-115); Osmolality Calculated 300 mOsm/kg (285-295); Potassium 3.9 mmol/L (3.5-5.1); Sodium 140 mmol/L (136-145)
[2024-10-16] MEDS: atorvastatin 40 mg Tablet 80 MG PO (20:50)
[2024-10-16] MEDS: pantoprazole 40 mg SDV IVP (20:50)
[2024-10-17] VITALS: BP 141/88; PULSE 74; RESP 21; TEMP 37; O2SAT 96
[2024-10-17 04:00] VITALS: BP 143/91; PULSE 75; RESP 13; TEMP 36.8; O2SAT 96
--- NOTE | 2024-10-17 05:51 | PC.NURSE ---
Patient refused morning labs because he stated that, He is going home today and doesn't need them. Educated patient and he still refused labs, patient is alert and oriented.
[2024-10-17 08:00] VITALS: BP 155/103; PULSE 82; RESP 20; TEMP 36.8; O2SAT 96
[2024-10-17] MEDS: clopidogrel 75 mg Tablet PO (08:23)
[2024-10-17] MEDS: amiodarone 200 mg Tablet 400 MG PO (08:23)
[2024-10-17] MEDS: docusate sodium 100 mg Capsule PO (08:24)
[2024-10-17] MEDS: apixaban 5 mg Tablet PO (08:24)
[2024-10-17] MEDS: carvedilol 6.25 mg Tablet PO (08:24)
--- NOTE | 2024-10-17 08:28 | PC.NURSE ---
Dr Corrales asked nursing staff to hold furosemide 40 mg this morning due to kidney function.
[2024-10-17 09:12] VITALS: BP 148/88; PULSE 78; RESP 20
[2024-10-17 09:21] VITALS: BP 148/88
--- NOTE | 2024-10-17 09:32 | PC.CHAP ---
Pastoral Care Encounter/Spiritual Assessment Type of Contact [] Declined sex worker or escort visit [] Patient/Family/Request visit [] Outpatient visit [] Follow-up visit [] Physician referral [] Code/Alert [x] Routine visit [] Staff referral [] Actively dying [] Patient sleeping [] Family support [] [] Out of room [] Palliative care [] [] Receiving care in room [] Pre-surgical visit [] Trauma [] Long length of stay [] ICU visit [] Other: Relational/Emotional Strength [x] Patient feels connected with others/family/visitors/staff [] Distress [] Loneliness/isolation [] Abandonment Spirituality of Patient [x] Person of April [] Attends Holiness of their April [x] Believes in Prayer [] Reads Bible or Yazidi materials [] There are Spiritual issues to be addressed Studio Sales Associate Interventions [x] Prayer [x] Active listening [x] Non-anxious presence [x] Spiritual/emotional support [] Crisis/trauma care [] Spiritual counseling [] Bereavement support [] Provided bereavement packet [] Provided Bible/devotional materials [] Provided toy/stuffed animal, coloring book to patient or family member [] Provided Communion [] Anointing/[place] [] Salvation [x] Completed spiritual assessment [] Other: Impact on Illness or Injury [] Angry [] Fearful [] Anxious [] Often cries [] Exhaustion [] Unable to work [] Unable to attend gnosticist [] Unable to walk/stand [] Unable to read [] Unable to drive [] Unable to eat/drink [] Unable to sleep [] Unable to be with family [] Patient intubated [] Other: Summary Time spent with patient 10 min
[2024-10-17 09:55] LABS: Basophils % 0.3 %; Eosinophils # 0.1 10^3/uL (0.0-0.8); Hematocrit 43.4 % (37-53); Lymphocytes # 0.6 10^3/uL (0.8-4.8); Mean Corpuscular HGB Conc 33.4 g/dL (30-55); Mean Corpuscular Hemoglobin 30.8 pg (27-33); Mean Corpuscular Volume 92.1 fl (82-101); Mean Platelet Volume 10.9 fL (7.4-10.4); Monocytes # 0.4 10^3/uL (0.2-0.9); Monocytes % 6.3 %; Neutrophils # 5.63 10^3/uL (1.8-7.7); Nucleated Red Blood Cells % 0 %; Platelet Count 146 10^3/cmm (157-399); Red Blood Count 4.71 10^6/uL (3.85-5.65); Red Cell Distribution Width 13.1 % (12.1-15.1); White Blood Count 6.79 10^3/uL (3.29-11.43)
[2024-10-17 10:14] LABS: Magnesium 1.9 mg/dL (1.7-2.3)
[2024-10-17 10:15] LABS: Alanine Aminotransferase 33 U/L (0-41); Albumin Level 3.6 g/dL (3.5-5.2); Alkaline Phosphatase 91 U/L (40-130); Anion Gap 17.3 (5-19); Aspartate Amino Transferase 32 U/L (0-40); Blood Urea Nitrogen 40 mg/dL (8-23); Calcium 8.2 mg/dL (8.5-10.5); Carbon Dioxide 21 mmol/L (22-29); Chloride 105 mmol/L (98-107); Creatinine Clr Calc Pharmacy 30.6008; Globulin 2.8 g/dL (1.3-4.6); Glucose 165 mg/dL (65-115); Osmolality Calculated 303 mOsm/kg (285-295); Potassium 3.3 mmol/L (3.5-5.1); Sodium 140 mmol/L (136-145); Total Bilirubin 0.9 mg/dL (0.15-1.2); Total Protein 6.4 g/dL (6.6-8.7)
[2024-10-17] MEDS: amlodipine 5 mg Tablet 2.5 MG PO (11:33)
--- NOTE | 2024-10-17 12:14 | P.PN_ITS ---
<Statement entered by Troy Palacios M.D - 10/18/24 09:46> Patient was cared for in conjunction with an advanced practice practitioner.? I reviewed the chart and all pertinent data including imaging, telemetry, and laboratory results.? I discussed the patient in detail with the advanced practice practitioner.? Please see?their note for progress note, testing results and agreed upon plan of care for the patient. Subjective 2 Subjective: Patient doing well today. Denies chest pain denies shortness of breath. Creatinine did go up to 2 but this morning was rechecked after fluids and came back down to 1.9. Vitals/I&O/Wt Last Vital Signs Temp 98.3 F 10/17/24 08:00 Pulse 78 10/17/24 09:12 Resp 20 H 10/17/24 09:12 BP 148/88 10/17/24 09:21 Pulse Ox 96 10/17/24 08:00 O2 Del Method Room Air 10/17/24 04:00 O2 Flow Rate 2 10/12/24 16:00 10/16/24 10/17/24 10/17/24 22:59 06:59 14:59 Intake Total 100 / 460 150 / 610 1435 / 1435 Balance 100 / 460 150 / 610 1435 / 1435 Weight last 48 hrs Weight 164 lb Weight 159 lb 12.8 oz Weight 159 lb 12.8 oz Physical Exam 2 Narrative: General: No apparent distress, healthy appearing, well nourished HENMT: normoceophalic Muskuloskeletal: Full ROM Respiratory: Normal respiratory effort, clear except bilateral lower lobes fine crackles present, no use of accessory muscles Cardio: No JVD, regular rate, regular rhythm, S1 S2 normal, no murmurs, peripheral pulses 2+ radial palpated bilaterally Extremities: Full ROM, normal, normal capillary refill, no cyanosis, trace edema bilateral lower extremities Neuro: Alert and oriented x4, no focal motor deficits Psych: Affect normal, denies suicidal ideation, mental status grossly normal Skin: No rashes or lesions noted, no wounds Data 10/17/24 09:28 10/17/24 09:28 A&P Assessment and plan (1) STEMI (ST elevation myocardial infarction): (2) Acute CHF: (3) Ischemic cardiomyopathy: (4) LV (left ventricular) mural thrombus: (5) Acute kidney injury: (6) Atrial fibrillation: Plan Patient would like to go home today. Creatinine has slightly improved. Due to his low EF and fine crackles, will recommend low dose lasix 20 mg once daily. F/U BMP in a couple of days, f/u in the clinic with us in 1 week for further evaluation and treatment. Continue Eliquis and Plavix. Will hold off on Entresto for now until renal function improves. BP has been higher today. Will add low dose amlodipine 2.5 mg and increase coreg to 6.25 BID. Patient has been asked to bring in a blood pressure log into the clinic. Patient has life vest with him. Continue amio 400 BID x1 week, then 200 BID x1 week, then 200 daily. Continue Eliquis 5 mg BID for stroke prophylaxis in afib. PDMP PDMP Reviewed: Not Reviewed Attestations 2 Medical Necessity Statement*: Deferred to primary Coding Level of Care Code Acute Code for [facility] Diagnoses ST elevation myocardial infarction involving right coronary artery I21.11 Involved coronary artery: right coronary artery Acute systolic congestive heart failure I50.21 Heart failure type: systolic Ischemic cardiomyopathy I25.5 LV (left ventricular) mural thrombus I51.3 Acute kidney injury N17.9 Paroxysmal atrial fibrillation I48.0 Atrial fibrillation type: paroxysmal
--- NOTE | 2024-10-17 12:40 | P.DS_ITS ---
Discharge Providers Date of Admission: 10/11/24 18:06 Date of Discharge: October 17, 2024 Attending Provider at Admission: Jair Lange MD Attending Provider at Discharge: Jeannette Corrales MD Primary Care Provider: MELA Mesa Diagnoses at Discharge Discharge Diagnosis (1) STEMI (ST elevation myocardial infarction): Status: Inactive Qualifiers: Involved coronary artery: right coronary artery Qualified Code(s): I21.11 - ST elevation (STEMI) myocardial infarction involving right coronary artery Permanent problem details: Inf Wall MT- 10/14 (2) Acute CHF: Status: Inactive Qualifiers: Heart failure type: systolic Qualified Code(s): I50.21 - Acute systolic (congestive) heart failure (3) Ischemic cardiomyopathy: Status: Inactive (4) LV (left ventricular) mural thrombus: Status: Inactive (5) Acute kidney injury: Status: Inactive (6) Atrial fibrillation: Status: Deleted Qualifiers: Atrial fibrillation type: paroxysmal Qualified Code(s): I48.0 - Paroxysmal atrial fibrillation Reason for Visit Reason for Visit: chest pain Hospital Course Hospital Course Mr. Eagle is an active 84yo man w/ a hx of longstanding HTN and allergic rhinitis who presented to the ED on 10/11/2024 w/ complaints of dyspnea and severe substernal CP that occurred 2 weeks prior and then resolved, and was found to have Q waves with ST elevation in the anterior and anterolateral lara, concerning for NSTEMI, in the setting of a late presentation of an MT, in addition to acute onset HFrEF. His ECHO on 10/11/2024 showed an EF of 15-20% w/ severe global hypokinesis w/ akinetic apical wall, possible LV apical thrombus and mild valvular regurtitation in all valves. He is s/p PCI on 10/14/2024 w/ severe multivessel CAD noted. Medical management using guideline directed optimal heart failure therapy and lifevest were recommended. Later on in the day, he developed a STEMI and was taken back to the [facility] again, where he received 1 Drug Eluting Stent (DIONNA) to the proximal RCA. He was initially placed on aspirin, Plavix, atorvastatin, carvedilol, and Lasix. With his LV thrombus, he was started on apixaban. He developed an BETH, likely due to contrast-induced nephropathy while being diuresed. He insisted on being discharged, so he was discharged, with a reduced dose of Lasix, furosemide 20 mg daily, Plavix, apixaban, atorvastatin, carvedilol. A BMP was ordered for him for him to go to the lab and get 2 days after discharge, to continue to closely monitor his renal function. He was also discharged to have close follow-up with cardiology. #Delayed Non-ST elevation (NSTEMI) myocardial infarction # STEMI s/p DIONNA x 1 to the RCA #LV Mural Thrombus #BETH on CKD - Baseline creat of 1.3-1.6. Current creat 1.3. Renal USG w/ no acute pathology. #Acute HFrEF - Echocardiogram shows EF of 1520% with global LV hypokinesia and akinetic apical wall with possibility of apical thrombus, mild to moderate MR, mild AI, mild PI, mild TR. - LifeVest on discharge. # Accelerated hypertension: # Ischemic cardiomyopathy: #Hypertension: Physical Exam Narrative: Constitutional: GENERAL APPEARANCE: cooperative, comfortable and appears older than stated age; HENT: HEAD & SCALP: normocephalic and atraumatic; NOSE: external nose not normal EXTERNAL EAR: no external ears normal MOUTH: Normal oral and palatal mucosa present THROAT: posterior oropharynx normal Eye: PERRL, EOMI, normal conjunctiva b/l Neck: normal visual inspection, trachea midline, No anterior neck swelling, No tracheal deviation, no submandibular swelling, Thyroid normal , cervical ROM normal Lymph: no cervical, supraclavicular LAD Resp: no use of accessory muscles, decreased breath sounds in the b/l lower lung [place], no w/r/r Cardio: RRR, no m/r/g, or clicks. 2+ radial and DP pulses. GI: normoactive bowel sounds, non-tender, non-distended, no guarding, no rigidity, no rebound tenderness, no hepatosplenomegaly. : Back/Pelvis: Deferred Extremity: No clubbing, No cyanosis and No edema Neuro: AO to person, place and time. CN normal except as noted. Normal gait present. 5/5 motor strength present throughout. Normal motor muscle tone present throughout. No tremor noted. No motor abnormalities present. No motor fasciculations present Psych: APPEARANCE: Yes grossly normal ATTITUDE: Yes calm and Yes engaged ACTIVITY/MOTOR BEHAVIOR: Yes appropriate eye contact SPEECH: Yes normal speech MOOD & AFFECT: Yes euthymic mood THOUGHT PROCESS: Normal thought process present THOUGHT CONTENT: Yes Normal thought content present ATTENTION/CONCENTRATION: Yes attention grossly intact MEMORY/COGNITION: Yes memory grossly intact Discharge Data Studies Completed and Pending Completed Studies During Hospitalization Category Date Time Status XR chest 1V [id number] Stat Exams 10/11/24 16:39 Completed CV. echo complete* [id number] Routine Ultrasound 10/11/24 19:30 Completed US echo limited with contrast [CV. echo lmt w/w contras Ultrasound 10/12/24 07:40 Completed 41670] Routine US renal BI* [id number] Routine Ultrasound 10/12/24 13:10 Completed Pending at discharge Category Date Time Status DIELECTRIC MACHINE OPERATOR request for service Routine Exams 10/14/24 06:00 Taken DIELECTRIC MACHINE OPERATOR request for service Routine Exams 10/14/24 09:28 Taken MAG [Magnesium] AM LABS Lab 10/18/24 04:00 Ordered Radiology Impressions Chest X-Ray 10/11/24 16:39 IMPRESSION: Small pleural effusions with basilar atelectasis. Renal Ultrasound 10/12/24 13:10 IMPRESSION: 1. No identified acute renal pathology. 2. Cholelithiasis. 3. Small left pleural effusion. Laboratory Results WBC 6.79 10^3/uL (3.29-11.43) 10/17/24 09:28 RBC 4.71 10^6/uL (3.85-5.65) 10/17/24 09:28 Hgb 14.50 g/dL (11.27-16.99) 10/17/24 09:28 Hct 43.4 % (37-53) 10/17/24 09:28 MCV 92.1 fl (82-101) 10/17/24 09:28 MCH 30.8 pg (27-33) 10/17/24 09:28 MCHC 33.4 g/dL (30-55) 10/17/24 09:28 RDW 13.1 % (12.1-15.1) 10/17/24 09:28 Plt Count 146 10^3/cmm (157-399) L 10/17/24 09:28 MPV 10.9 fL (7.4-10.4) H 10/17/24 09:28 Neut % (Auto) 83.0 % 10/17/24 09:28 Lymph % (Auto) 9.0 % 10/17/24 09:28 [place] % (Auto) 6.3 % 10/17/24 09: Eos % (Auto) 1.0 % 10/17/24 09: Baso % (Auto) 0.3 % 10/17/24 09: Neut # (Auto) 5.63 10^3/uL (1.8-7.7) 10/17/24 09: Lymph # (Auto) 0.6 10^3/uL (0.8-4.8) L 10/17/24 09: [place] # (Auto) 0.4 10^3/uL (0.2-0.9) 10/17/24 09: Eos # (Auto) 0.1 10^3/uL (0.0-0.8) 10/17/24 09: Baso # (Auto) 0.0 10^3/uL (0.0-0.1) 10/17/24 09: Nucleated RBC % (auto) 0 % 10/17/24 09: Nucleated RBCs # 0.0 /100WBC 10/17/24 09: PT 13.90 SECONDS (12.1-14.9) 10/11/24 16:48 INR 1.00 (0.8-1.2) 10/11/24 16:48 APTT 40.1 SECONDS (23.9-36.7) H D 10/15/24 13:03 Sodium 140 mmol/L (136-145) 10/17/24 09: Potassium 3.3 mmol/L (3.5-5.1) L 10/17/24 09: Chloride 105 mmol/L (98-107) 10/17/24 09: Carbon Dioxide 21 mmol/L (22-29) L 10/17/24 09:28 Anion Gap 17.3 (5-19) 10/17/24 09:28 BUN 40 mg/dL (8-23) H 10/17/24 09:28 Creatinine 1.9 mg/dL (0.7-1.2) H 10/17/24 09:28 GFR Calculation Not Reportable 10/17/24 09: Glucose 165 mg/dL (65-115) H 10/17/24 09:28 Estimat Average Glucose 111 10/11/24 16:48 Hemoglobin A1c 5.5 % (4.0-6.0) 10/11/24 16:48 Calculated Osmolality 303 mOsm/kg (285-295) H 10/17/24 09:28 Lactic Acid 1.0 mmol/L (0.5-2.2) 10/11/24 16:48 Calcium 8.2 mg/dL (8.5-10.5) L 10/17/24 09:28 Phosphorus 3.3 mg/dL (2.5-4.5) 10/14/24 04:37 Magnesium 1.9 mg/dL (1.7-2.3) 10/17/24 09:28 Iron 59 ug/dL (59-158) 10/11/24 16:48 TIBC 217 mcg/dl 10/11/24 16:48 % Saturation 27.1 % (20-50) 10/11/24 16:48 Unsat Iron Binding 158 ug/dL (112-347) 10/11/24 16:48 Total Bilirubin 0.9 mg/dL (0.15-1.2) 10/17/24 09:28 AST 32 U/L (0-40) 10/17/24 09:28 ALT 33 U/L (0-41) 10/17/24 09:28 Alkaline Phosphatase 91 U/L (40-130) 10/17/24 09:28 Troponin T Baseline 122 ng/L (0-15) H* 10/11/24 16:48 Troponin T 120 Minute 120.5 ng/L (0-15) H 10/11/24 20:04 Delta Troponin T -1.5 ABS# (0-10) L 10/11/24 20:04 Troponin T Hi Sens 6Hr 129.4 ng/L (0-15) H 10/11/24 23:10 Troponin T Hi Sens 6Hr Delta 7.4 ng/L (0-12) 10/11/24 23:10 NT-Pro-B Natriuret Pep 35711 pg/mL (0-450) H 10/11/24 16:48 Total Protein 6.4 g/dL (6.6-8.7) L 10/17/24 09:28 Albumin 3.6 g/dL (3.5-5.2) 10/17/24 09:28 Globulin 2.8 g/dL (1.3-4.6) 10/17/24 09:28 Triglycerides 67 mg/dL (0-150) 10/12/24 00:58 Cholesterol 154 mg/dL (0-200) 10/12/24 00:58 LDL Cholesterol, Calc 94 mg/dL (50-129) 10/12/24 00:58 HDL Cholesterol 47 mg/dL (60-100) L 10/12/24 00:58 LDL/HDL Ratio 2.00 RATIO (0.00-3.22) 10/12/24 00:58 Cholesterol/HDL Ratio 3.28 mg/dL (1.0-5.00) 10/12/24 00:58 Lipase 21 U/L (13-60) 10/11/24 16:48 Vitamin B12 397 pg/mL (232-1245) 10/11/24 16:48 Folate 10.3 ng/mL (4.5-32.2) 10/12/24 00:58 Procalcitonin 0.08 ng/mL (0-0.5) 10/12/24 00:58 TSH 3.97 uIU/mL (0.27-4.20) 10/11/24 16:48 Urine Color Yellow (Yellow) 10/12/24 09:35 Urine Appearance Clear (CLEAR) 10/12/24 09:35 Urine pH 6.0 (5-7) 10/12/24 09:35 Ur Specific [place] 1.007 (1.005-1.030) 10/12/24 09:35 Urine Protein Negative (Negative) 10/12/24 09:35 Urine Glucose (UA) Negative (Normal) 10/12/24 09:35 Urine Ketones Negative (Negative) 10/12/24 09:35 Urine Blood Negative (Negative) 10/12/24 09:35 Urine Nitrate Negative (Negative) 10/12/24 09:35 Urine Bilirubin Negative (Negative) 10/12/24 09:35 Urine Urobilinogen 0.2 mg/dL (Negative) 10/12/24 09:35 Ur Leukocyte Esterase Negative (Negative) 10/12/24 09:35 Urine RBC 0-2 /hpf (0-2) 10/12/24 09:35 Urine WBC 0-5 /hpf (0-5) 10/12/24 09:35 Ur Squamous Epith Cells 0-5 /hpf (0-5) 10/12/24 09:35 Amorphous Sediment Not Reportable 10/12/24 09:35 Urine Bacteria None seen /hpf (NONE) 10/12/24 09:35 Hyaline Casts 0.40 /lpf 10/12/24 09:35 Ur Random Sodium 126 mmol/L 10/12/24 09:35 Ur Random Potassium 18 mmol/L 10/12/24 09:35 Ur Random Chloride 132 mmol/L 10/12/24 09:35 Urine Creatinine 17 mg/dL (39-259) L 10/12/24 09:35 Urine Opiates Screen Positive ng/mL (Negative) H 10/12/24 09:35 Ur Barbiturates Screen Negative ng/mL (Negative) 10/12/24 09:35 Ur Phencyclidine Scrn Negative ng/mL (Negative) 10/12/24 09:35 Ur Amphetamines Screen Negative ng/mL (Negative) 10/12/24 09:35 U Benzodiazepines Scrn Negative ng/mL (Negative) 10/12/24 09:35 Urine Cocaine Screen Negative ng/mL (Negative) 10/12/24 09:35 U Marijuana (THC) Screen Negative ng/mL (Negative) 10/12/24 09:35 Vitals Last Vital Signs Temp 98.3 F 10/17/24 08:00 Pulse 78 10/17/24 09:12 Resp 20 H 10/17/24 09:12 BP 148/88 10/17/24 09:21 Pulse Ox 96 10/17/24 08:00 O2 Del Method Room Air 10/17/24 04:00 O2 Flow Rate 2 10/12/24 16:00 Discharge Plan Discharge Patient Disposition: Home Condition: Stable Prescriptions: New amiodarone [Pacerone] 200 mg Tablet 400 mg PO BID Qty: 90 0RF Rx Instructions: 400 mg twice daily for 7 days followed by 200 mg twice daily for 7 days followed by 200 mg daily Eliquis 5 mg Tablet 5 mg PO BID@0900,2100 Qty: 60 0RF furosemide 20 mg tablet 20 mg PO DAILY Qty: 30 0RF atorvastatin 40 mg Tablet 80 mg PO BEDTIME 90 Days Qty: 90 0RF carvedilol 6.25 mg Tablet 6.25 mg PO BID 30 Days Qty: 60 0RF clopidogrel 75 mg Tablet 75 mg PO DAILY 90 Days Qty: 90 0RF amlodipine 5 mg tablet 5 mg PO DAILY Qty: 30 0RF Continued lysine [L-Lysine] 500 mg tablet 500 mg PO DAILY omega 6-tcn-sdv-fish oil [Fish Oil] 1,000 (120-180) mg Capsule 1 cap PO DAILY Discontinued aspirin 81 mg tablet,chewable 81 mg PO DAILY Discharge Orders: Discharge Order (Routine); Ordered 10/17/24 Ordered By: Jeannette Corrales Referrals: Michael Deluca FNP-C [Primary Care Provider, Family Practice] - 10/26/24 3:00 pm Rosa Sheikh FNP [Nurse Practitioner, Cardiology] - 10/30/24 3:00 pm Discharge Diet: Advance as tolerated Discharge Activity: As per cardiac/pulm rehab instructions Patient Instructions: Atrial Fibrillation, Furosemide (By mouth), Amiodarone (By mouth), Amlodipine (By mouth), Atorvastatin (By mouth), Carvedilol (By mouth), Apixaban (By mouth), Hypertension, Heart Failure (DC), Coronary Artery Disease (DC), A-fib (Atrial Fibrillation) (DC), Coronary Angioplasty (DC), Acute Kidney Injury (DC), Tachycardia (ED), Opioid Safety Discharge Attestations Time Spent in Discharge Care*: greater than 30 min Quality Metrics Clinical Quality Measures [ Acute Myocardial Infaction { Clinical Trial Participant: No; Contraindication to aspirin: None; Aspirin prescribed; Contraindication to statin: None; Statin prescribed; Contraindication to PCI: None; PCI performed; Contraindication to Fibrinolytics: None; fibrinolytics given}] Coding Level of Care Code 67348 Total time (in minutes) for Discharge: [address] elevation myocardial infarction involving right coronary artery I21.11 Involved coronary artery: right coronary artery Acute systolic congestive heart failure I50.21 Heart failure type: systolic Ischemic cardiomyopathy I25.5 LV (left ventricular) mural thrombus I51.3 Acute kidney injury N17.9 Paroxysmal atrial fibrillation I48.0 Atrial fibrillation type: paroxysmal
[2024-10-17 13:19] VITALS: BP 140/95; PULSE 73; RESP 22; O2SAT 94
== END 2024-10-17 13:55 | disposition home or self-care (01) | DRG 321 ==
LOC: ER 18:05 → ICU 20:35 → CSU 10-13 12:08 → ICU 10-14 10:53 → CSU 10-15 17:23
PROVIDERS: Internal Medicine; Nurse Practitioner Family; Admitting Provider Student in an Organized Health Care Education/Training Program; Emergency Provider Emergency Medicine; PCP Nurse Practitioner; Visit Provider Internal Medicine
PROC: B211YZZ Fluoroscopy of Multiple Coronary Arteries using Other Contrast (ICD-10-PCS; principal; 2024-10-14 07:00)
DX: I13.0 Hypertensive heart and chronic kidney disease with heart failure and stage 1 through stage 4 chronic kidney disease, or unspecified chronic kidney disease (principal); I21.11 ST elevation (STEMI) myocardial infarction involving right coronary artery; I50.23 Acute on chronic systolic (congestive) heart failure; N17.9 Acute kidney failure, unspecified; N18.9 Chronic kidney disease, unspecified; I25.5 Ischemic cardiomyopathy; T50.2X5A Adverse effect of carbonic-anhydrase inhibitors, benzothiadiazides and other diuretics, initial encounter; Y92.239 Unspecified place in hospital as the place of occurrence of the external cause; N14.11 Contrast-induced nephropathy; T50.8X5A Adverse effect of diagnostic agents, initial encounter; I25.10 Atherosclerotic heart disease of native coronary artery without angina pectoris; I48.0 Paroxysmal atrial fibrillation; Z79.82 Long term (current) use of aspirin
CPT/HCPCS: 12345; 36415; 71045; 76770; 80048; 80053; 80061; 80306; 81001; 82436; 82570; 82607; 82746; 83036; 83540; 83550; 83605; 83690; 83735; 83880; 84100; 84133; 84145; 84300; 84443; 84484; 85025; 85347; 85610; 85730; 92941; 92978; 93005; 93306; 93454; 94664; 96365; 96366; 96374; 96375; 96376; 99152; 99153; 99285; A4222; C1725; C1753; C1769; C1874; C1887; C1894; C8924; C9600; J0283; J0360; J1644; J1938; J2250; J2270; J2405; J2470; J3010; J3490; J7030; J9999; Q0163; Q9967

== ENCOUNTER → 2024-10-19 11:31 | Outpatient (BNVA) | payer MEDICARE, BC, SELFPAY | PROVIDERS: PCP Nurse Practitioner; Visit Provider Nurse Practitioner | DX: I10 Essential (primary) hypertension (principal) | CPT/HCPCS: 80053 ==

== ENCOUNTER → 2024-10-30 15:00 | Outpatient (BNVA) | payer MEDICARE, BC, SELFPAY | PROVIDERS: PCP Nurse Practitioner; Visit Provider Nurse Practitioner Family | DX: I13.0 Hypertensive heart and chronic kidney disease with heart failure and stage 1 through stage 4 chronic kidney disease, or unspecified chronic kidney disease (principal); I50.23 Acute on chronic systolic (congestive) heart failure; N18.9 Chronic kidney disease, unspecified; I25.10 Atherosclerotic heart disease of native coronary artery without angina pectoris; I25.2 Old myocardial infarction; Z87.891 Personal history of nicotine dependence | CPT/HCPCS: 99214 ==

== ENCOUNTER → 2024-11-02 08:49 | Outpatient (BNVA) | payer MEDICARE, BC, SELFPAY | PROVIDERS: PCP Nurse Practitioner; Visit Provider Nurse Practitioner | DX: I10 Essential (primary) hypertension (principal); I50.20 Unspecified systolic (congestive) heart failure | CPT/HCPCS: 80048; 83880 ==

== ENCOUNTER → 2024-11-06 11:42 | Outpatient (BNVA) | payer MEDICARE, BC, SELFPAY | PROVIDERS: PCP Nurse Practitioner; Visit Provider Nurse Practitioner | DX: M16.11 Unilateral primary osteoarthritis, right hip (principal) | CPT/HCPCS: 73502 ==

== ENCOUNTER → 2024-12-13 09:42 | Outpatient (BNVA) | payer MEDICARE, BC, SELFPAY | PROVIDERS: PCP Nurse Practitioner; Visit Provider Nurse Practitioner | DX: R53.1 Weakness (principal) | CPT/HCPCS: 80053; 83036; 85025 ==

== ENCOUNTER 2024-12-15 14:44 | Outpatient (CLI) | payer MEDICARE, BC, SELFPAY ==
--- NOTE | 2024-12-15 15:15 | MR_ITS ---
WS: [id number] MRI BRAIN WITHOUT CONTRAST HISTORY: R53.1 - Weakness COMPARISON: None available. TECHNIQUE: Diffusion imaging, multiplanar T1, T2 and FLAIR imaging obtained. Acute to subacute lacunar infarct in the posterior LEFT parietal lobe. There is an additional diffusion abnormality consistent with an acute to subacute lacunar infarct in the RIGHT carly. Additional diffusion abnormality in subcortical white matter LEFT frontal lobe. Mild cerebral atrophy and volume loss. There is extensive chronic T2 and FLAIR signal hyperintensities from small vessel disease. Numerous prior lacunar infarcts in the periventricular white matter. Chronic small vessel changes in the carly, RIGHT greater than LEFT. Ventricles extra-axial spaces are prominent on the basis of atrophy. Several foci of hemosiderin in the RIGHT cerebellum. There are few additional scattered areas of hemosiderin in the supratentorial brain. No inferior displacement of cerebellar tonsils. The sella turcica and pituitary gland are unremarkable. Dural venous sinuses and [place] [employer] [place] demonstrate no abnormality on this unenhanced studies. Paranasal sinuses: Clear. Mastoid air cells: Normal. Calvarium and scalp: Intact. MR/MR head wo con* [id number] IMPRESSION: 1. Several diffusion abnormalities consistent with acute to subacute lacunar i nfarcts. These infarcts are in various arterial distribution suggesting a more central embolic source such as cardiac in etiology. Small lacunar infarcts in t he posterior LEFT parietal lobe, LEFT frontal lobe and RIGHT carly. 2. There is additional advanced small vessel disease. 3. Numerous hemosiderin foci within the brain. Consider amyloid angiopathy. Notified MELA Mesa at 12/15/2024 3:54 PM. [facility].
== END 2024-12-15 14:45 | disposition home or self-care (01) ==
PROVIDERS: PCP Nurse Practitioner; Visit Provider Nurse Practitioner
DX: R53.1 Weakness (principal); I63.81 Other cerebral infarction due to occlusion or stenosis of small artery; I67.89 Other cerebrovascular disease; I61.8 Other nontraumatic intracerebral hemorrhage; R90.82 White matter disease, unspecified
CPT/HCPCS: 70551

== ENCOUNTER → 2025-01-01 13:28 | Outpatient (BNVA) | payer MEDICARE, BC, SELFPAY | PROVIDERS: PCP Nurse Practitioner; Visit Provider Internal Medicine | DX: I25.10 Atherosclerotic heart disease of native coronary artery without angina pectoris (principal); I50.20 Unspecified systolic (congestive) heart failure; I48.0 Paroxysmal atrial fibrillation; Z86.73 Personal history of transient ischemic attack (TIA), and cerebral infarction without residual deficits; I13.0 Hypertensive heart and chronic kidney disease with heart failure and stage 1 through stage 4 chronic kidney disease, or unspecified chronic kidney disease; N18.9 Chronic kidney disease, unspecified | CPT/HCPCS: 99214 ==

== ENCOUNTER 2025-01-12 11:07 | Outpatient (CLI) | payer MEDICARE, BC, SELFPAY ==
--- NOTE | 2025-01-12 11:15 | USCV_ITS ---
BlandVictor Hugo pierson Age: 84 Gender: M : 1940 Exam Date: 01/12/2025 11:43 Ordering Phys: Rosa Sheikh Technologist: SANDRA Exam Location: [facility] [place] Indication: Systolic CHF BP: 132 / 68 HR: Rhythm: Sinus Technical Quality: Adequate MEASUREMENTS (Male / Female) Normal Values 2D ECHO LV Diastolic Diameter PLAX 5.1 cm 4.2 - 5.9 / 3.9 - 5.3 cm IVS Diastolic Thickness 1.1 cm 0.6 - 1.0 / 0.6 - 0.9 cm IVS Systolic Thickness 1.7 cm LVPW Diastolic Thickness 1.3 cm 0.6 - 1.0 / 0.6 - 0.9 cm LVPW Systolic Thickness 2.1 cm LVOT Diameter 2.0 cm LV Ejection Fraction 2D Teich 47.1 % LV Ejection Fraction MOD 4C 48.8 % LV Ejection Fraction MOD 2C 41.6 % LV Ejection Fraction 2C AL 46.3 % LA Diameter 3.1 cm RA Systolic Volume 4C AL 22.2 ml RA Systolic Volume 4C MOD 20.1 ml Aorta at Sinotubular Diameter 3.2 cm M-MODE LA Ao Ratio MM 0.9 AV Cusp Separation MM 1.3 cm FINDINGS Left Ventricle Normal left ventricular cavity size. Mildly decreased left ventricular systolic function. Severe hypokinesis of the mid and basal inferior and inferolateral wall segments. Measured ejection fraction is 48%. Right Ventricle Normal right ventricular size and systolic function. Right Atrium Left Atrium Mitral Valve Aortic Valve Tricuspid Valve Pulmonic Valve Pericardium Aorta IVC CONCLUSIONS 1. This study was ordered as a limited echo. 2. Mild left ventricular systolic dysfunction with severe hypokinesis of the mid basal inferior and inferolateral wall segments with ejection fraction of 48%. 3. Normal right ventricular size and systolic function. Richmond Gómez MD, FACC (Electronically Signed) Final Date: 12 January 2025 19:52 S
== END 2025-01-12 11:08 | disposition home or self-care (01) ==
LOC: RAD 11:09
PROVIDERS: PCP Nurse Practitioner; Visit Provider Nurse Practitioner Family
DX: I50.20 Unspecified systolic (congestive) heart failure (principal)
CPT/HCPCS: 93308

== ENCOUNTER 2025-03-20 02:45 | Observation (INO) | payer MEDICARE, BC, SELFPAY ==
[2025-03-20] VITALS (15 sets, daily range): BP systolic 142–166; BP diastolic 73–96; PULSE 56–75; RESP 12–18; TEMP 36.7–36.9; O2SAT 90–97; BMI 24.0
--- NOTE | 2025-03-20 02:57 | ECG_ITS ---
[facility]: [facility]25[facility]20 Pat Name: Victor Hugo Blackburn Department: Room: Gender: Male Transmission Superintendent: : 1940 Requested By: Cathie Demarco Order Number: [id number] Tania MD: Tramaine Gonzales M.D. Measurements Intervals [place] Rate: 77 P: 55 HI: 211 QRS: -13 QRSD: 108 T: 68 QT: 387 QTc: 440 Interpretive Statements SINUS RHYTHM WITH FIRST DEGREE AV BLOCK ANTEROSEPTAL MYOCARDIAL INFARCTION , OF INDETERMINATE AGE [40+ ms Q WAVE IN V1-V4] Compared to ECG 10/14/2024 20:14:46 Left ventricular hypertrophy no longer present ST (T wave) deviation no longer present Myocardial infarct finding still present Electronically Signed On 03-20-2025 21:54:36 AIDS COUNSELOR by Tramaine Gonzales M.D. [email or web address]
--- OUTSIDE RECORDS SUMMARY | 2025-03-20 02:57 | XMS_ITS | Patient Health Record ---
Author Organization [facility] Address [address] [place] [address] Care Team Providers Care Orthopaedic Technologist Name Role Phone Luis Manuel Subramanian Unavailable Unavailable Reason For Referral No Information Plan Of Treatment No Information
--- NOTE | 2025-03-20 02:58 | XRR_ITS ---
PROCEDURE INFORMATION: Exam: XR Chest Exam date and time: 03/20/2025 5:16 AM Age: 84 years old Clinical indication: Pain; Angina pectoris; Additional info: Chest pain with SOB TECHNIQUE: Imaging protocol: Radiologic exam of the chest. Views: 1 view. COMPARISON: CR XR chest 1V [id number] 10/11/2024 4:49 PM FINDINGS: Lungs: Unremarkable. No consolidation. Pleural spaces: Unremarkable. No pleural effusion. No pneumothorax. Heart/Mediastinum: Unremarkable. No cardiomegaly. Bones/joints: Unremarkable. XR/XR chest 1V portable [id number] IMPRESSION: No acute findings.
[2025-03-20 04:05] LABS: Hematocrit 43.4 % (37-53); Hemoglobin 14.90 g/dL (11.27-16.99); Mean Corpuscular HGB Conc 34.3 g/dL (30-55); Mean Corpuscular Hemoglobin 31.0 pg (27-33); Mean Corpuscular Volume 90.2 fl (82-101); Nucleated Red Blood Cells % 0 %; Platelet Count 151 10^3/cmm (157-399); Red Blood Count 4.81 10^6/uL (3.85-5.65); White Blood Count 7.64 10^3/uL (3.29-11.43)
[2025-03-20 04:20] LABS: INR 1.25 (0.8-1.2); Prothrombin Time 16.50 SECONDS (12.1-14.9)
[2025-03-20 04:21] LABS: Partial Thromboplastin Time 35.3 SECONDS (23.9-36.7)
[2025-03-20 04:26] LABS: Troponin(5th) Baseline 25 ng/L (0-15)
[2025-03-20 04:42] LABS: Anion Gap 15.2 (5-19); Blood Urea Nitrogen 22 mg/dL (8-23); Calcium 9.0 mg/dL (8.5-10.5); Carbon Dioxide 27 mmol/L (22-29); Chloride 104 mmol/L (98-107); Creatinine Clr Calc Pharmacy 41.4253; Glucose 126 mg/dL (65-115); NT Pro B Type Natriuretic Pept 3386 pg/mL (0-450); Osmolality Calculated 299 mOsm/kg (285-295); Potassium 4.2 mmol/L (3.5-5.1); Sodium 142 mmol/L (136-145)
--- NOTE | 2025-03-20 04:58 | ECG_ITS ---
[employer] Test Date: 2025-03-20 Pat Name: Victor Hugo Blackburn Department: Room: Gender: Male Digital Coordinator: : 1940 Requested By: Cathie Demarco Order Number: [id number] Reading MD: Tramaine Gonzales M.D. Measurements Intervals [place] Rate: 67 P: -47 MA: 224 QRS: 195 QRSD: 116 T: -53 QT: 403 QTc: 426 Interpretive Statements SINUS RHYTHM WITH FIRST DEGREE AV BLOCK POSSIBLE RIGHT VENTRICULAR HYPERTROPHY [SOME/ALL OF: PROMINENT R IN V1, LATE TRANSITION, RAD, MIKAL, SSS] INFERIOR MYOCARDIAL INFARCTION , OF INDETERMINATE AGE [40+ ms Q WAVE AND/OR ST/T ABNORMALITY IN II/aVF] ANTEROSEPTAL MYOCARDIAL INFARCTION , POSSIBLY ACUTE [40+ ms Q WAVE IN V1-V4] ACUTE SC Compared to ECG 03/20/2025 02:53:22 No significant changes Electronically Signed On 03-20-2025 22:19:49 FINISH OFF OPERATOR by Tramaine Gonzales M.D. [email or web address]
--- NOTE | 2025-03-20 05:17 | ED_ITS ---
HPI - Chest Pain 2 General: Chief Complaint: Chest Pain Stated Complaint: Chest Pains\SOB Time Seen by Provider: 03/20/25 05:06 History of Present Illness: Patient is an 84-year-old male with a past medical history of CAD with RCA stent and total occlusion of LAD, LV thrombus, systolic CHF presents w/cc of chest pain since 17:00 yesterday evening. Patient describes it as an ache in the anterior left chest. He does not report radiation but states that it is worsened with exertion. Currently, he rates it as 5/10. Patient states that deep breathing also makes the pain worse. Patient has not had runny nose, sore throat, cough, hemoptysis, syncope. He states he does feel short of breath. Patient also reports a bit of worsening lower extremity swelling. He denies any abdominal pain, nausea, vomiting, diarrhea or dysuria. Last cardiac echo: CONCLUSIONS 1. This study was ordered as a limited echo. 2. Mild left ventricular systolic dysfunction with severe hypokinesis of the mid basal inferior and inferolateral wall segments with ejection fraction of 48%. 3. Normal right ventricular size and systolic function. Related Data Home Medications ?Medication ?Instructions ?Recorded ?Confirmed lysine 500 mg tablet (L-Lysine) 500 mg PO DAILY 01/01/25 omega 6-aga-qkg-fish oil 1,000 mg 1 cap PO DAILY 10/1201/01/25 (120 mg-180 mg) capsule (Fish Oil) Previous Rx's ?Medication ?Instructions ?Recorded atorvastatin 80 mg tablet 80 mg PO BEDTIME #30 tabs clopidogrel 75 mg tablet 75 mg PO DAILY #30 tabs 10/08 diltiazem HCl 180 mg capsule,24 180 mg PO QAM #30 caps 12/19/24 hr,extended release (Tiazac) furosemide 20 mg tablet 20 mg PO DAILY #30 tabs 10/08 potassium chloride 10 mEq 10 meq PO DAILY #30 tabs 10/08 tablet,extended release(part/cryst) amiodarone 200 mg tablet (Pacerone) 200 mg PO QDAY #90 tabs 12/22/24 apixaban 5 mg tablet (Eliquis) 5 mg PO BID #180 tabs 0 01/01/25 Allergies Allergy/AdvReac Type Severity Reaction Status Date / Time amlodipine (From [facility]) AdvReac Severe Swelling Verified 01/01/25 14:06 feet to knees [facility] ED 2 PFS: Medical History (Updated 03/20/25 @ 06:02 by Cathie Demarco MD) Cerebrovascular accident (CVA) with involvement of left side of body 12/04/24 Paroxysmal atrial fibrillation Multi-vessel coronary artery stenosis Non-ST elevation (NSTEMI) myocardial infarction Systolic CHF Hypertension Acute kidney injury Nonsustained ventricular tachycardia Accelerated hypertension Acute CHF STEMI (ST elevation myocardial infarction) Inf [place]- 10/14 Heart failure, systolic, with acute decompensation LV (left ventricular) mural thrombus Ischemic cardiomyopathy CKD (chronic kidney disease) Seasonal allergic rhinitis due to pollen Surgical History No history of previous surgery Family History Father Heart disease Mother Cancer Blood cancer Social History Smoking and tobacco/nicotine status: never used tobacco/nicotine Second hand smoke exposure: No Alcohol intake: never Substance/Drug Use: never Adopted: No Caregiver/support person: No Lives independently: Yes Household members: children Housing: House Marital status: / Current occupational status: employed Do you think of yourself as: Straight/Heterosexual Current gender identity: Male Physical Exam 2 Narrative: EXAM NARRATIVE: Vital signs were reviewed. Patient is alert and oriented. Patient is breathing comfortably, no increased WOB or accessory muscle use. SpO2 is above 95% on RA. Patient has clear lungs b/l, no rhonchi, wheezing or crackles. No hypotension or tachycardia. Abdomen is soft, nondistended and nontender. Patient is moving all extremities, no deformity or gross injury. +b/l pitting LE edema. Patient reports LLE is slightly worse, baseline. Course 2 Vital Signs: Vital signs: Vital Signs Temperature 98.4 F 03/20/25 02:46 Pulse Rate 75 03/20/25 02:46 Respiratory Rate 18 03/20/25 02:46 Blood Pressure 166/93 03/20/25 02:46 Pulse Oximetry 97 03/20/25 02:46 Oxygen Delivery Me thod Room Air 03/20/25 02:46 MDM - Chest Pain Medical Decision Making 84-year-old male with CHF, [place], LV thrombus presents with a chief complaint of left-sided, squeezing chest pain with an exertional component. Differential diagnosis includes, but is not limited to, ACS, myocarditis, pericarditis, pericardial effusion, PE, pneumothorax, pneumonia, viral upper respiratory infection, GERD, other. On initial exam, patient is hemodynamically stable nontoxic appearing. EKG was personally reviewed and interpreted and shows no STEMI. Patient was treated with aspirin, nitroglycerin, morphine and Zofran. Patient continues to have chest pain. Patient was evaluated CBC, CMP, troponin, BNP, D-dimer, EKG and chest x-ray. Patient has a normal white blood cell count and is not anemic. Patient has elevated creatinine but this is improved from previous, presumed to be baseline. He does not have any actionable electrolyte abnormalities. Patient has an elevated baseline troponin and elevated BNP of 3400. D dimer is wnl. Given that he's not hypoxic, tachycardic, is on eliquis and D dimer is wnl and chest pain started within the last 24hrs, I have lower suspicion for PE. He does, however, have a HEART score of 7 and is moderate/high risk for ACS. Will admit for ACS r/o. Lab Data 03/20/25 03:55 03/20/25 03:55 Laboratory Results WBC 7.64 10^3/uL (3.29-11.43) 03/20/25 03:55 RBC 4.81 10^6/uL (3.85-5.65) 03/20/25 03:55 Hgb 14.90 g/dL (11.27-16.99) 03/20/25 03:55 Hct 43.4 % (37-53) 03/20/25 03:55 MCV 90.2 fl (82-101) 03/20/25 03:55 MCH 31.0 pg (27-33) 03/20/25 03:55 MCHC 34.3 g/dL (30-55) 03/20/25 03:55 RDW 12.9 % (12.1-15.1) 03/20/25 03:55 Plt Count 151 10^3/cmm (157-399) L 03/20/25 03:55 MPV 9.2 fL (7.4-10.4) 03/20/25 03:55 Neut % (Auto) 83.1 % 03/20/25 03:55 Lymph % (Auto) 7.2 % 03/20/25 03:55 [place] % (Auto) 8.8 % 03/20/25 03:55 Eos % (Auto) 0.5 % 03/20/25 03:55 Baso % (Auto) 0.1 % 03/20/25 03:55 Neut # (Auto) 6.35 10^3/uL (1.8-7.7) 03/20/25 03:55 Lymph # (Auto) 0.6 10^3/uL (0.8-4.8) L 03/20/25 03:55 [place] # (Auto) 0.7 10^3/uL (0.2-0.9) 03/20/25 03:55 Eos # (Auto) 0.0 10^3/uL (0.0-0.8) 03/20/25 03:55 Baso # (Auto) 0.0 10^3/uL (0.0-0.1) 03/20/25 03:55 Nucleated RBC % (auto) 0 % 03/20/25 03:55 Nucleated RBCs # 0.0 /100WBC 03/20/25 03:55 PT 16.50 SECONDS (12.1-14.9) H 03/20/25 03:55 INR 1.25 (0.8-1.2) H 03/20/25 03:55 APTT 35.3 SECONDS (23.9-36.7) 03/20/25 03:55 Sodium 142 mmol/L (136-145) 03/20/25 03:55 Potassium 4.2 mmol/L (3.5-5.1) 03/20/25 03:55 Chloride 104 mmol/L (98-107) 03/20/25 03:55 Carbon Dioxide 27 mmol/L (22-29) 03/20/25 03:55 Anion Gap 15.2 (5-19) 03/20/25 03:55 BUN 22 mg/dL (8-23) 03/20/25 03:55 Creatinine 1.4 mg/dL (0.7-1.2) H 03/20/25 03:55 GFR Calculation Not Reportable 03/20/25 03:55 Glucose 126 mg/dL (65-115) H 03/20/25 03:55 Calculated Osmolality 299 mOsm/kg (285-295) H 03/20/25 03:55 Calcium 9.0 mg/dL (8.5-10.5) 03/20/25 03:55 Troponin T Baseline 25 ng/L (0-15) H 03/20/25 03:55 NT-Pro-B Natriuret Pep 3386 pg/mL (0-450) H 03/20/25 03:55 XR interpretation done by ED provider, pending radiology final review ED provider radiology interpretation(s): No large consolidation, large pleural effusion, pneumothorax, significant pulmonary edema. Discharge Plan Discharge Patient Disposition: Admitted As Inpatient Clinical Impression: Chest pain at rest, CAD (coronary artery disease) Condition: Stable Coding Level of Care Code ED [employer] Expert for Chg Fwd Heart Score HEART Score Components History: Moderately Suspicious EKG: Non-specific Changes Age: 65 or more yrs Risk Factors: >/=3 Risk Factors Troponin: Baseline Trop 16-45 ng/L HEART Score RESULT HEART Score: 7
[2025-03-20] MEDS: ondansetron 2 mg/ML SDV 2 mL 4 MG IVP (05:32)
[2025-03-20] MEDS: morphine 4 mg/mL SDV 1 mL IVP (05:32)
[2025-03-20 06:48] LABS: Troponin 5 2HR 23.64 ng/L (0-15)
[2025-03-20 06:50] LABS: Troponin 5 2HR Delta -1.36 ABS# (0-10)
--- NOTE | 2025-03-20 07:47 | PM.HP ---
Providers/Chief Complaint Admitting Physician: Kristie Carvalho MD--- admitted this morning after 6 AM Primary Care Provider: MELA Mesa Chief Complaint: Chest Pains\SOB History of Present Illness Victor Hugo Blackburn is a 84 year old male with medical history significant for coronary artery disease who had sustained myocardial infarction 3 months ago with stent placement. Patient also has left ventricular thrombus for which I believe he is on Eliquis. I have initiated his Eliquis at this time. I spoke to Dr. Godinez concerning this patient regarding what needs to be done EKG did not show any ischemia and troponin we are not remarkable. Patient chest pain-free no heparin drip initiated for that reason. Again patient is on Eliquis Review of Systems Narrative: System review upon 10 organ review were only significant for cardiovascular disorder Medications/Allergies Home Medications ?Medication ?Instructions ?Recorded ?Confirmed ?Last Taken ?Type lysine 500 mg tablet (L-Lysine) 500 mg PO DAILY 08/03/24 01/01/25 10/11/24 History omega 4-jlk-vuc-fish oil 1,000 mg 1 cap PO DAILY 10/12/24 01/01/25 10/11/24 History (120 mg-180 mg) capsule (Fish Oil) atorvastatin 80 mg tablet 80 mg PO BEDTIME #30 tabs 12/19/24 01/01/25 Unknown Rx clopidogrel 75 mg tablet 75 mg PO DAILY #30 tabs 12/19/24 01/01/25 Unknown Rx diltiazem HCl 180 mg capsule,24 180 mg PO QAM #30 caps 12/19/24 01/01/25 Unknown Rx hr,extended release (Tiazac) furosemide 20 mg tablet 20 mg PO DAILY #30 tabs 12/19/24 01/01/25 Unknown Rx potassium chloride 10 mEq 10 meq PO DAILY #30 tabs 12/19/24 01/01/25 Unknown Rx tablet,extended release(part/cryst) amiodarone 200 mg tablet (Pacerone) 200 mg PO QDAY #90 tabs 12/22/24 01/01/25 Unknown Rx apixaban 5 mg tablet (Eliquis) 5 mg PO BID #180 tabs 01/01/25 01/01/25 Unknown Rx Allergies Allergy/AdvReac Type Severity Reaction Status Date / Time amlodipine (From [facility]) AdvReac Severe Swelling Verified 01/01/25 14:06 feet to knees PFSH Acute PFSH: Medical History Cerebrovascular accident (CVA) with involvement of left side of body 12/04/24 Paroxysmal atrial fibrillation Multi-vessel coronary artery stenosis Non-ST elevation (NSTEMI) myocardial infarction Systolic CHF Hypertension Acute kidney injury Nonsustained ventricular tachycardia Accelerated hypertension Acute CHF STEMI (ST elevation myocardial infarction) Inf [place]- 10/14 Heart failure, systolic, with acute decompensation LV (left ventricular) mural thrombus Ischemic cardiomyopathy CKD (chronic kidney disease) Seasonal allergic rhinitis due to pollen Surgical History No history of previous surgery Family History Father Heart disease Mother Cancer Blood cancer Social History Smoking and tobacco/nicotine status: never used tobacco/nicotine Second hand smoke exposure: No Alcohol intake: never Substance/Drug Use: never Adopted: No Caregiver/support person: No Lives independently: Yes Household members: children Housing: House Marital status: / Current occupational status: employed Do you think of yourself as: Straight/Heterosexual Current gender identity: Male Vitals/I&O/Wt Last Vital Signs Temp 98.4 F 03/20/25 02:46 Pulse 65 03/20/25 06:25 Resp 16 03/20/25 05:32 BP 147/85 03/20/25 06:25 Pulse Ox 95 03/20/25 06:25 O2 Del Method Room Air 03/20/25 05:45 Weight last 48 hrs Weight 73.936 kg Physical Exam Narrative: General the patient is doing well looking forward for cardiology to follow through with him. Patient is under observation. Patient is not on any aspirin combination except for the Eliquis HEENT normocephalic/atraumatic neck neck is supple cardiovascular heart is regular lungs are pretty much clear abdomen soft nontender nondistended unremarkable extremities are intact no edema has good pulses neurology has no focality lab studies lab studies reviewed and noted. Data 03/20/25 03:55 03/20/25 03:55 A&P Assessment and plan 1. CAD (coronary artery disease): 2. Chest pain at rest: 3. CAD (coronary artery disease): 4. Paroxysmal atrial fibrillation: 5. Systolic CHF: 6. Left ventricular thrombus: Plan: Chest pain with a history of CAD and stent placement 3 months ago for some reason patient is not on Plavix - Cardiology consulted and will be going through the patient for care likely medication issue to optimize and discharge. - I have spoken to cardiology Dr. Suazo and he will be following up on this patient and he has been consulted for care. Left ventricular thrombus - I have initiated patient outpatient Eliquis Continue all other patient chronic medical disorder on home medication once updated and reconciled PDMP PDMP Reviewed: Last Reviewed 03/20/25 07:52 by Kristie Carvalho MD Attestations Medical Necessity Statement*: Patient is under observation coming in with chest pain history of CAD will be a chest pain rule out new CAD will allow 23 hours stay. Coding Level of Care Code Acute Code for [facility] Diagnoses CAD (coronary artery disease) I25.10 Chest pain at rest R07.9 Paroxysmal atrial fibrillation I48.0 Systolic CHF I50.20 Left ventricular thrombus I51.3 Time Spent (min) 60
--- NOTE | 2025-03-20 08:58 | ECG_ITS ---
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 Measurements Intervals [place] Rate: 61 P: 29 IN: 247 QRS: -25 QRSD: 126 T: 78 QT: 454 QTc: 459 Interpretive Statements SINUS RHYTHM WITH FIRST DEGREE AV BLOCK MODERATE VOLTAGE CRITERIA FOR LVH, CONSIDER NORMAL VARIANT [MEETS CRITERIA IN ONE OF: R(aVL), S(V1), R(V5), R(V5/V6)+S(V1)] ANTEROSEPTAL MYOCARDIAL INFARCTION , PROBABLY RECENT [40+ ms Q WAVE IN V1-V4] ACUTE FL Compared to ECG 03/20/2025 05:18:56 No significant changes Electronically Signed On 03-20-2025 22:18:52 TRUCK JUMPER by Tramaine Gonzales M.D. [email or web address]
--- NOTE | 2025-03-20 09:17 | USCV_ITS ---
Victor Hugo Blackburn Age: 84 Gender: M : 1940 Exam Date: 03/20/2025 10:38 Ordering Phys: Jair Lange MD Technologist: SANDRA [place] [facility] [place]: CP, CAD BP: 147 / 85 HR: Rhythm: Sinus Technical Quality: Adequate MEASUREMENTS (Male / Female) Normal Values 2D ECHO LV Diastolic Diameter PLAX 6.2 cm 4.2 - 5.9 / 3.9 - 5.3 cm LV Systolic Diameter PLAX 5.8 cm IVS Diastolic Thickness 0.9 cm 0.6 - 1.0 / 0.6 - 0.9 cm IVS Systolic Thickness 1.0 cm LVPW Diastolic Thickness 1.1 cm 0.6 - 1.0 / 0.6 - 0.9 cm LVPW Systolic Thickness 1.1 cm LVOT Diameter 1.9 cm LV Ejection Fraction 2D Teich 15.1 % LV Ejection Fraction MOD 4C 43.8 % LV Ejection Fraction MOD 2C 44.5 % LV Ejection Fraction 2C AL 48.8 % LA Diameter 2.7 cm RA Systolic Volume 4C AL 46.1 ml RA Systolic Volume 4C MOD 43.1 ml LA Sys Volume AL 57.2 cm cubed LA Sys Volume Index AL 29.7 cm cubed/m squared Aorta at Sinotubular Diameter 3.1 cm M-MODE LA Ao Ratio MM 0.9 AV Cusp Separation MM 2.0 cm FINDINGS Left Ventricle Mild diffuse hypokinesis of the left ventricle, more so of the basal and mid septum and the basal inferior wall segments. LV ejection fraction of 45%. Mildly dilated LV cavity Right Ventricle Normal right ventricular size and systolic function. Right Atrium Normal right atrial size. Left Atrium Mildly increased left atrial size. IA Septum Appears to be intact Mitral Valve No gross abnormalities noted Aortic Valve Thickened aortic valve. Tricuspid Valve No gross abnormalities noted Pulmonic Valve Pulmonic valve not well visualized. Pericardium No pericardial effusion. Aorta Normal aortic annulus size. IVC Inferior vena cava not visualized. CONCLUSIONS Mild diffuse hypokinesis of the left ventricle, more so of the basal and mid septum and the basal inferior wall segments. LV ejection fraction of 45%. Mildly dilated LV cavity. Mildly increased left atrial size. Thickened aortic valve. There is no pericardial effusion. There are no intracardiac masses. Compared to the study from 01/12/2025, there may be significant change Dr Tramaine Gonzales MD FAC (Electronically Signed) Final Date: 20 March 2025 15:25 S
[2025-03-20] MEDS: heparin 5,000 unit/mL INJ 1 mL IVP (09:44)
[2025-03-20] MEDS: heparin drip 25,000 UNIT/500 ML PREMIX 21 UNIT IV (09:47)
--- NOTE | 2025-03-20 09:51 | PM.CONSULT ---
Providers/Reason For Consult Consulting Physician/Specialty*: MELODY Gonzales MD/cardiology Reason for Consult*: MELODY Gonzales MD/cardiology Requesting Physician: Dr. Lange Attending Physician: Jair Lange MD Primary Care Provider: MELA Mesa History of Present Illness History of Present Illness Victo rHugo Blackburn is a 84 year old male with a history of atherosclerotic heart diseas, status post recent PCI in September of this year, he is admitted to hospital through the emergency room, where he presented with complaints of chest pain. In September of this year, this patient was admitted to the hospital with features of an ST elevation myocardial infarction. Cardiac catheterization revealed total occlusion of the mid LAD. He had high-grade lesion in the proximal LAD. Because of the late presentation and fairly asymptomatic state, initially it was decided to treat the patient medically. So the patient was sent back to medical floor in stable condition. While being in the floor, couple of hours later, patient started having severe chest pain. And he developed features an acute inferior wall [place]. He was found to have an acute thrombotic occlusion of the right coronary artery for which he was taken back to the [facility] and had PCI of the RCA with a 1 stent. He also was found to have possible mural thrombus in the left ventricle. He had episodes of atrial fibrillation for which he was started on amiodarone. He has been taking Eliquis. The patient has been doing okay with no chest pain or any symptoms subsequently. He was discharged home in stable condition. According the patient, he has been doing okay up until yesterday evening when he started having chest pain. The pain was intermittent. The chest pain was in the mid substernal region. He had a pleuritic component for the chest pain as well. It was radiating across the chest. Intensity was moderate. Because of the persistence of the symptoms, he was brought to the hospital. He has no fever, chills or cough. No unusual shortness of breath. He has no fever or chills. No cough. He has the baseline shortness of breath with activities. His echocardiogram during the hospital stay in September revealed an ejection fraction of 30%. Subsequent echocardiogram in January revealed ejection fraction around 48%. He has been noticing swelling of the lower extremities intermittently. For the last few days, the swelling has been getting worse. Review of Systems Narrative: CONSTITUTIONAL: No fever or chills. EYES: No blurring of vision or other visual disturbances lately. ENT: No hoarseness of voice, auditory disturbances or sore throat. CARDIOVASCULAR: As mentioned above. RESPIRATORY: Shortness of breath with activities. GASTROINTESTINAL: No hematemesis or melena. GENITOURINARY: No dysuria or hematuria. INTEGUMENTARY: Bilateral leg swelling NEURO: No transient ischemic attacks or amaurosis. PSYCHIATRIC: No history of psychosis or major depression. HEMATOLOGIC: No bleeding disorders or significant anemia. ENDOCRINE: No history of polyuria or polydipsia. MUSCULOSKELETAL: No recent joint pain or swelling. ALLERGY/IMMUNOLOGY: As mentioned above. Medications/Allergies Home Medications ?Medication ?Instructions ?Recorded ?Confirmed ?Last Taken ?Type lysine 500 mg tablet (L-Lysine) 500 mg PO DAILY 08/03/24 03/20/25 03/19/25 History omega 3-sga-esz-fish oil 1,000 mg 1 cap PO DAILY 10/12/24 03/20/25 03/19/25 History (120 mg-180 mg) capsule (Fish Oil) atorvastatin 80 mg tablet 80 mg PO BEDTIME #30 tabs 12/19/24 03/20/25 03/19/25 19:00 Rx clopidogrel 75 mg tablet 75 mg PO DAILY #30 tabs 12/19/24 03/20/25 03/19/25 Rx diltiazem HCl 180 mg capsule,24 180 mg PO QAM #30 caps 12/19/24 03/20/25 03/19/25 09:00 Rx hr,extended release (Tiazac) furosemide 20 mg tablet 20 mg PO DAILY #30 tabs 12/19/24 03/20/25 03/19/25 Rx potassium chloride 10 mEq 10 meq PO DAILY #30 tabs 12/19/24 03/20/25 03/19/25 Rx tablet,extended release(part/cryst) amiodarone 200 mg tablet (Pacerone) 200 mg PO QDAY #90 tabs 12/22/24 03/20/25 03/19/25 Rx apixaban 5 mg tablet (Eliquis) 5 mg PO BID #180 tabs 01/01/25 03/20/25 03/19/25 Rx Allergies Allergy/AdvReac Type Severity Reaction Status Date / Time amlodipine (From Norvasc) AdvReac Severe Swelling Verified 01/01/25 14:06 feet to knees Current Medications Generic Name Dose Route Start Last Admin Trade Name Freq PRN Reason Stop Dose Admin Amiodarone HCl 200 mg 03/20/25 09:30 03/20/25 09:48 Amiodarone 200 Mg Tablet PO 200 mg DAILY SIMEON Administration Diltiazem HCl 30 mg 03/20/25 09:30 03/20/25 09:48 Diltiazem 30 Mg Tablet PO 30 mg Q6H SIMEON Administration Heparin Sodium (Porcine) 0 unit 03/20/25 09:17 03/20/25 09:44 Heparin 5,000 Unit/Ml Inj 1 Ml IVP 3,700 unit PRN PRN Administration Heparin Weight Based Protocol -Subsequent Bolus Protocol Sodium Chloride 1,000 mls @ 75 mls/hr 03/20/25 07:47 03/20/25 08:54 Sodium Chloride 0.9% IV 75 mls/hr .[id number] SIMEON Administration Heparin Sodium/Sodium Chloride 25,000 unit in 500 mls @ 0 mls/hr 03/20/25 09:30 03/20/25 09:47 Heparin Drip IV 14.2 unit/kg/hr CONT SIMEON 21 mls/hr Protocol Administration Per Protocol PFSH Acute PFSH: Medical History Ischemic cardiomyopathy Stage 3a chronic kidney disease Cerebrovascular accident (CVA) with involvement of left side of body 12/04/24 Paroxysmal atrial fibrillation Multi-vessel coronary artery stenosis Non-ST elevation (NSTEMI) myocardial infarction Systolic CHF Hypertension Acute kidney injury Nonsustained ventricular tachycardia Accelerated hypertension Acute CHF STEMI (ST elevation myocardial infarction) Inf Wall [place]- 10/14 Heart failure, systolic, with acute decompensation LV (left ventricular) mural thrombus Seasonal allergic rhinitis due to pollen Surgical History No history of previous surgery Family History Father Heart disease Mother Cancer Blood cancer Social History Smoking and tobacco/nicotine status: never used tobacco/nicotine Second hand smoke exposure: No Alcohol intake: never Substance/Drug Use: never Adopted: No Caregiver/support person: No Lives independently: Yes Household members: children Housing: House Marital status: / Current occupational status: employed Do you think of yourself as: Straight/Heterosexual Current gender identity: Male Vitals/I&O/Wt Last Vital Signs Temp 98.4 F 03/20/25 02:46 Pulse 65 03/20/25 06:25 Resp 16 03/20/25 05:32 BP 147/85 03/20/25 06:25 Pulse Ox 95 03/20/25 06:25 O2 Del Method Room Air 03/20/25 05:45 Weight last 48 hrs Weight 163 lb Physical Exam Narrative: GENERAL: The patient is alert and oriented times three. Not in any acute distress. HEENT: No significant pallor, icterus or lymphadenopathy.Oral cavity: There are no mucous membrane lesions. NECK: Trachea appears to be central. No masses noted. No JVD or thyromegaly appreciated. RESPIRATORY: Chest is symmetrical. No intercostals muscle retraction or any accessory muscle activation. There is no chest wall tenderness. Breath sounds are heard bilaterally. No rales or rhonchi heard. No evidence of any consolidation. BREASTS: Deferred. HEART: The heart sounds are normal. No S3 or S4. Short systolic murmur in the left hilar border. No diastolic murmurs. No pericardial rub ABDOMEN: No vessel pulsations or distention. No tenderness. No organomegaly appreciated. Bowel sounds are normally heard. : Deferred. RECTAL: Deferred. LYMPHATIC: No lymphadenopathy noted in the neck. EXTREMITIES: 2+ edema both lower extremities. Features of chronic venous stasis. MUSCULOSKELETAL: No acute joint deformities or swelling SKIN: There are no significant rashes or ecchymosis NEUROPSYCHIATRIC: The patient is alert and oriented x3. Appears to be in a good mood. No tremors or rigidity noted. Data 03/21/25 06:11 03/21/25 06:11 Other Labs: Laboratory Last Values WBC 7.64 10^3/uL (3.29-11.43) 03/20/25 03:55 RBC 4.81 10^6/uL (3.85-5.65) 03/20/25 03:55 Hgb 14.90 g/dL (11.27-16.99) 03/20/25 03:55 Hct 43.4 % (37-53) 03/20/25 03:55 MCV 90.2 fl (82-101) 03/20/25 03:55 MCH 31.0 pg (27-33) 03/20/25 03:55 MCHC 34.3 g/dL (30-55) 03/20/25 03:55 RDW 12.9 % (12.1-15.1) 03/20/25 03:55 Plt Count 151 10^3/cmm (157-399) L 03/20/25 03:55 MPV 9.2 fL (7.4-10.4) 03/20/25 03:55 Neut % (Auto) 83.1 % 03/20/25 03:55 Lymph % (Auto) 7.2 % 03/20/25 03:55 [place] % (Auto) 8.8 % 03/20/25 03:55 Eos % (Auto) 0.5 % 03/20/25 03:55 Baso % (Auto) 0.1 % 03/20/25 03:55 Neut # (Auto) 6.35 10^3/uL (1.8-7.7) 03/20/25 03:55 Lymph # (Auto) 0.6 10^3/uL (0.8-4.8) L 03/20/25 03:55 [place] # (Auto) 0.7 10^3/uL (0.2-0.9) 03/20/25 03:55 Eos # (Auto) 0.0 10^3/uL (0.0-0.8) 03/20/25 03:55 Baso # (Auto) 0.0 10^3/uL (0.0-0.1) 03/20/25 03:55 Nucleated RBC % (auto) 0 % 03/20/25 03:55 Nucleated RBCs # 0.0 /100WBC 03/20/25 03:55 PT 16.50 SECONDS (12.1-14.9) H 03/20/25 03:55 INR 1.25 (0.8-1.2) H 03/20/25 03:55 APTT 35.3 SECONDS (23.9-36.7) 03/20/25 03:55 D-Dimer 0.43 ug/mLFEU (0-0.59) 03/20/25 03:55 Sodium 142 mmol/L (136-145) 03/20/25 03:55 Potassium 4.2 mmol/L (3.5-5.1) 03/20/25 03:55 Chloride 104 mmol/L (98-107) 03/20/25 03:55 Carbon Dioxide 27 mmol/L (22-29) 03/20/25 03:55 Anion Gap 15.2 (5-19) 03/20/25 03:55 BUN 22 mg/dL (8-23) 03/20/25 03:55 Creatinine 1.4 mg/dL (0.7-1.2) H 03/20/25 03:55 GFR Calculation Not Reportable 03/20/25 03:55 Glucose 126 mg/dL (65-115) H 03/20/25 03:55 Calculated Osmolality 299 mOsm/kg (285-295) H 03/20/25 03:55 Calcium 9.0 mg/dL (8.5-10.5) 03/20/25 03:55 Troponin T Baseline 25 ng/L (0-15) H 03/20/25 03:55 Troponin T 120 Minute 23.64 ng/L (0-15) H 03/20/25 06:20 Delta Troponin T -1.36 ABS# (0-10) L 03/20/25 06:20 NT-Pro-B Natriuret Pep 3386 pg/mL (0-450) H 03/20/25 03:55 EKG 1: My Interpretation: Normal sinus rhythm with a first-degree AV block. Features of recent anteroseptal wall [place]. Nonspecific ST-T changes. Minimal voltage relative LVH. Minimal left axis deviation. A&P Assessment and plan 1. Atherosclerotic heart disease of [place] coronary artery with other forms of angina pectoris: Patient so far has no evidence of any acute medical injury. The EKG changes are nonspecific. 2. Paroxysmal atrial fibrillation: Currently in sinus rhythm. May continue on the current medications. 3. Multi-vessel coronary artery stenosis: Possibility of progression of disease in the [place] vessel is a consideration. 4. Left ventricular thrombus: Patient is on long-term oral anticoagulation. Eliquis may be held at this point. Restarted on IV heparin 5. Primary hypertension: Blood pressure is within normal range. May continue on the current medications. 6. Ischemic cardiomyopathy: Consider GDMT. 7. Stage 3a chronic kidney disease: May closely monitor the kidney function for 8. Dyslipidemia: Continue on the current medications. Plan: Once the myocardial infarction is ruled out, consider Myocardial perfusion imaging. The echocardiac revealed LV ejection fraction around 45%. No significant change from the previous study. Based on the clinical progress and the results of the above, further recommendations will be made Thank you for the opportunity to evaluate this patient and make these recommendations PDMP PDMP Reviewed: Not Reviewed Coding Level of Care Code 62188 Diagnoses Atherosclerotic heart disease of [place] coronary artery with other forms of angina pectoris I25.118 Paroxysmal atrial fibrillation I48.0 Multi-vessel coronary artery stenosis I25.10 Left ventricular thrombus I51.3 Primary hypertension I10 Hypertension type: primary hypertension Ischemic cardiomyopathy I25.5 Stage 3a chronic kidney disease N18.31 Chronic kidney disease stage: stage 3 (moderate) Chronic kidney disease stage 3 subtype: stage 3a (GFR 45-59) Dyslipidemia E78.5
[2025-03-20 09:58] LABS: Troponin 5 6HR 23.04 ng/L (0-15)
--- NOTE | 2025-03-20 10:00 | PC.NURSE ---
PT REPORTING CHEST PAIN, DR. POP NOTIFIED. PER VERBAL ORDER FROM DR. POP TO APPLY 1INCH NITRO PASTE. NITRO PASTE APPLIED.
[2025-03-20 10:03] LABS: Troponin 5 6HR Delta -1.96 ng/L (0-12)
[2025-03-20] MEDS: nitroglycerin 1 gm/inch oint Pkt 1 INCH TOPICAL ×3 (10:04→20:54)
[2025-03-20 16:29] LABS: INR 1.34 (0.8-1.2); Prothrombin Time 17.50 SECONDS (12.1-14.9)
--- NOTE | 2025-03-20 16:35 | ECG_ITS ---
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 Interpretive Statements Lung unchanged pre/post procedure; Intraprocedure shortess of breath; Symptoms resoled by discharge; Symptoms resoled by discharge PROCEDURE: At the baseline, the EKG revealed normal sinus rhythm with a poor R wave progression. Possible old anteroseptal [place]. Some nonspecific T wave changes.. The baseline heart was 74 bpm with a blood pressue of 161/75 mm of Hg Lexiscan was infused over a period of 20 seconds. A total of 0.4 milligrams of Lexiscan was infused. The stress phase was continued for a total of 5 minutes. Heart rate at the end of the stress phase was 79 bpm with a blood pressure 141/83 mm of Hg. The EKG at the peak infusion revealed no significant changes. Sestamibi was injected 20 seconds after the Lexiscan infusion. Heart rate at the end of the recovery phase was 71 bpm with a blood pressure of 137/78 mm of Hg. CONCLUSION: 1. No significant EKG changes with the LexiScan infusion 2. No LexiScan induced chest pain or cardiac arrhythmia 3. Normal blood pressure and heart rate response 4. Sestamibi/sestamibi perfusion scan pending; see separate report. Electronically Signed On 03-23-2025 20:33:15 ELECTRIC FURNACE OPERATOR by Tramaine Gonzales M.D. [email or web address]
[2025-03-20 16:47] LABS: Partial Thromboplastin Time > 250.0 SECONDS (23.9-36.7)
[2025-03-21] VITALS (8 sets, daily range): BP systolic 131–169; BP diastolic 68–100; PULSE 63–79; RESP 15–22; TEMP 36.9; O2SAT 95–99
[2025-03-21] MEDS: nitroglycerin 1 gm/inch oint Pkt 1 INCH TOPICAL ×2 (05:08→10:26)
[2025-03-21 06:25] LABS: Hematocrit 39.2 % (37-53); Hemoglobin 13.40 g/dL (11.27-16.99); Mean Corpuscular HGB Conc 34.2 g/dL (30-55); Mean Corpuscular Hemoglobin 31.0 pg (27-33); Mean Corpuscular Volume 90.7 fl (82-101); Nucleated Red Blood Cells % 0 %; Platelet Count 145 10^3/cmm (157-399); Red Blood Count 4.32 10^6/uL (3.85-5.65); White Blood Count 6.51 10^3/uL (3.29-11.43)
[2025-03-21 06:34] LABS: Partial Thromboplastin Time 43.2 SECONDS (23.9-36.7)
[2025-03-21 06:36] LABS: Anion Gap 12.1 (5-19); Blood Urea Nitrogen 19 mg/dL (8-23); Calcium 8.2 mg/dL (8.5-10.5); Carbon Dioxide 27 mmol/L (22-29); Chloride 105 mmol/L (98-107); Creatinine Clr Calc Pharmacy 48.4059; Glucose 116 mg/dL (65-115); Magnesium 2.0 mg/dL (1.7-2.3); Osmolality Calculated 293 mOsm/kg (285-295); Potassium 4.1 mmol/L (3.5-5.1); Sodium 140 mmol/L (136-145)
--- NOTE | 2025-03-21 08:20 | XR_ITS ---
WS: [id number] Portable AP upright chest, 03/21/2025 Clinical Data: hypoxia Comparison: Portable chest, 03/20/2025. Findings: No nodules, masses or effusions are seen. The heart is normal. The pulmonary vascularity is not increased. No pneumonia or pneumothorax is seen. The aortic arch and descending thoracic aorta show tortuosity. There are monitor leads on the chest wall. XR/XR chest 1V portable [id number] Impression: Atherosclerosis.
[2025-03-21] MEDS: FUROsemide 10 mg/mL SDV 2mL 20 MG IVP (08:46)
--- NOTE | 2025-03-21 08:53 | PM.PN ---
Subjective Subjective: Patient underwent a Myocardial perfusion imaging today. He was found to have small areas of reversible defect. The patient is remaining stable with no recurrence of chest pain. Medications: Medication Review Details: Current Medications Acetaminophen (Acetaminophen 325 Mg Tablet) 650 mg PO Q6H PRN PRN Reason: Mild/Mod Pain Or Temp >/= 101 Aminophylline (Aminophylline 25 Mg/Ml Sdv 20 Ml) 25 mg IVP Q2M PRN PRN Reason: see dose instructions Stop: 03/22/25 07:02 Amiodarone HCl (Amiodarone 200 Mg Tablet) 200 mg PO DAILY [facility] Last Admin: 03/21/25 05:08 Dose: 200 mg Atorvastatin Calcium (Atorvastatin 40 Mg Tablet) 80 mg PO BEDTIME [facility] Last Admin: 03/20/25 20:54 Dose: 80 mg Clopidogrel Bisulfate (Clopidogrel 75 Mg Tablet) 75 mg PO DAILY [facility] Last Admin: 03/21/25 05:08 Dose: 75 mg Diltiazem HCl (Diltiazem 30 Mg Tablet) 30 mg PO Q6H [facility] Last Admin: 03/21/25 08:47 Dose: 30 mg Docusate Sodium (Docusate Sodium 100 Mg Capsule) 100 mg PO BID [facility] Last Admin: 03/21/25 04:52 Dose: Not Given Heparin Sodium (Porcine) (Heparin 5,000 Unit/Ml Inj 1 Ml) 0 unit IVP PRN PRN; Protocol PRN Reason: Heparin Weight Based Protocol -Subsequent Bolus Last Admin: 03/20/25 09:44 Dose: 3,700 unit Heparin Sodium/Sodium Chloride (Heparin Drip) 25,000 unit in 500 mls @ 0 mls/hr IV CONT SIMEON; Protocol Last Titration: 03/21/25 06:44 Dose: 9.47 unit/kg/hr, 14 mls/hr Morphine Sulfate (Morphine 4 Mg/Ml Sdv 1 Ml) 1 mg IVP Q4H PRN PRN Reason: SEVERE PAIN Nitroglycerin (Nitroglycerin 0.4 Mg Sublingual Tablet) 0.4 mg SUBLINGUAL Q5M PRN PRN Reason: CHEST PAIN Nitroglycerin (Nitroglycerin 1 Gm/Inch Oint Pkt) 1 inch TOPICAL Q6H SIMEON Last Admin: 03/21/25 05:08 Dose: 1 inch Nitroglycerin (Nitroglycerin 0.4 Mg Sublingual Tablet) 0.4 mg SUBLINGUAL Q5M PRN PRN Reason: CHEST PAIN Stop: 03/22/25 07:02 Ondansetron HCl (Ondansetron 2 Mg/Ml Sdv 2 Ml) 4 mg IVP Q2M PRN PRN Reason: NAUSEA Senna (Sennosides 8.6 Mg Tablet) 17.2 mg PO BEDTIME SIMEON Last Admin: 03/20/25 20:54 Dose: Not Given Vitals/I&O/Wt Last Vital Signs Temp 98.5 F 03/21/25 03:32 Pulse 71 03/21/25 07:36 Resp 22 H 03/21/25 03:32 BP 137/78 03/21/25 07:36 Pulse Ox 95 03/21/25 03:32 O2 Del Method Nasal Cannula 03/21/25 03:32 03/20/25 03/21/25 03/21/25 22:59 06:59 14:59 Intake Total 1268.4 / 1268.4 313.883 / 1582.283 Balance 1268.4 / 1268.4 313.883 / 1582.283 Weight last 48 hrs Weight 170 lb 9.6 oz Weight 163 lb Weight 163 lb Physical Exam Narrative: GENERAL: The patient is alert and oriented times three. Not in any acute distress. HEENT: No significant pallor, icterus or lymphadenopathy.Oral cavity: There are no mucous membrane lesions. NECK: Trachea appears to be central. No masses noted. No JVD or thyromegaly appreciated. RESPIRATORY: Chest is symmetrical. No intercostals muscle retraction or any accessory muscle activation. There is no chest wall tenderness. Breath sounds are heard bilaterally. No rales or rhonchi heard. No evidence of any consolidation. BREASTS: Deferred. HEART: The heart sounds are normal. No S3 or S4. Short systolic murmur in the left hilar border. No diastolic murmurs. No pericardial rub ABDOMEN: No vessel pulsations or distention. No tenderness. No organomegaly appreciated. Bowel sounds are normally heard. : Deferred. RECTAL: Deferred. LYMPHATIC: No lymphadenopathy noted in the neck. EXTREMITIES: 2+ edema both lower extremities. Features of chronic venous stasis. MUSCULOSKELETAL: No acute joint deformities or swelling SKIN: There are no significant rashes or ecchymosis NEUROPSYCHIATRIC: The patient is alert and oriented x3. Appears to be in a good mood. No tremors or rigidity noted. Data 03/21/25 06:11 03/21/25 06:11 Other Labs: Laboratory Last Values WBC 6.51 10^3/uL (3.29-11.43) 03/21/25 06:11 RBC 4.32 10^6/uL (3.85-5.65) 03/21/25 06:11 Hgb 13.40 g/dL (11.27-16.99) 03/21/25 06:11 Hct 39.2 % (37-53) 03/21/25 06:11 MCV 90.7 fl (82-101) 03/21/25 06:11 MCH 31.0 pg (27-33) 03/21/25 06:11 MCHC 34.2 g/dL (30-55) 03/21/25 06:11 RDW 12.7 % (12.1-15.1) 03/21/25 06:11 Plt Count 145 10^3/cmm (157-399) L 03/21/25 06:11 MPV 9.5 fL (7.4-10.4) 03/21/25 06:11 Neut % (Auto) 83.0 % 03/21/25 06:11 Lymph % (Auto) 8.0 % 03/21/25 06:11 [place] % (Auto) 7.2 % 03/21/25 06:11 Eos % (Auto) 1.2 % 03/21/25 06:11 Baso % (Auto) 0.3 % 03/21/25 06:11 Neut # (Auto) 5.40 10^3/uL (1.8-7.7) 03/21/25 06:11 Lymph # (Auto) 0.5 10^3/uL (0.8-4.8) L 03/21/25 06:11 [place] # (Auto) 0.5 10^3/uL (0.2-0.9) 03/21/25 06:11 Eos # (Auto) 0.1 10^3/uL (0.0-0.8) 03/21/25 06:11 Baso # (Auto) 0.0 10^3/uL (0.0-0.1) 03/21/25 06:11 Nucleated RBC % (auto) 0 % 03/21/25 06:11 Nucleated RBCs # 0.0 /100WBC 03/21/25 06:11 PT 17.50 SECONDS (12.1-14.9) H 03/20/25 15:49 INR 1.34 (0.8-1.2) H 03/20/25 15:49 APTT 43.2 SECONDS (23.9-36.7) H D 03/21/25 06:11 D-Dimer 0.43 ug/mLFEU (0-0.59) 03/20/25 03:55 Sodium 140 mmol/L (136-145) 03/21/25 06:11 Potassium 4.1 mmol/L (3.5-5.1) 03/21/25 06:11 Chloride 105 mmol/L (98-107) 03/21/25 06:11 Carbon Dioxide 27 mmol/L (22-29) 03/21/25 06:11 Anion Gap 12.1 (5-19) 03/21/25 06:11 BUN 19 mg/dL (8-23) 03/21/25 06:11 Creatinine 1.2 mg/dL (0.7-1.2) 03/21/25 06:11 GFR Calculation Not Reportable 03/21/25 06:11 Glucose 116 mg/dL (65-115) H 03/21/25 06:11 Calculated Osmolality 293 mOsm/kg (285-295) 03/21/25 06:11 Calcium 8.2 mg/dL (8.5-10.5) L 03/21/25 06:11 Phosphorus 2.8 mg/dL (2.5-4.5) 03/21/25 06:11 Magnesium 2.0 mg/dL (1.7-2.3) 03/21/25 06:11 Troponin T Baseline 25 ng/L (0-15) H 03/20/25 03:55 Troponin T 120 Minute 23.64 ng/L (0-15) H 03/20/25 06:20 Delta Troponin T -1.36 ABS# (0-10) L 03/20/25 06:20 Troponin T Hi Sens 6Hr 23.04 ng/L (0-15) H 03/20/25 09:36 Troponin T Hi Sens 6Hr Delta -1.96 ng/L (0-12) L 03/20/25 09:36 NT-Pro-B Natriuret Pep 3386 pg/mL (0-450) H 03/20/25 03:55 A&P Assessment and plan 1. Atherosclerotic heart disease of [place] coronary artery with other forms of angina pectoris: Patient so far has no evidence of any acute medical injury. The EKG changes are nonspecific. There is also a Myocardial perfusion imaging was discussed with the patient. In the absence of any chest pain, since the area of ischemia is small, it would be appropriate to hold off on any further invasive workup at this point. I may keep the patient on a low-dose of long-acting nitrates, in addition to current medications. 2. Paroxysmal atrial fibrillation: Currently in sinus rhythm. May continue on the current medications. Patient may be placed back on the Eliquis 3. Multi-vessel coronary artery stenosis: Possibility of progression of disease in the [place] vessel is a consideration. 4. Left ventricular thrombus: Patient is on long-term oral anticoagulation. Eliquis may be held at this point. Restarted on IV heparin 5. Primary hypertension: Blood pressure is within normal range. May continue on the current medications. 6. Ischemic cardiomyopathy: Consider GDMT. We may consider Entresto as an outpatient 7. Stage 3a chronic kidney disease: May closely monitor the kidney function for 8. Dyslipidemia: Continue on the current medications. Plan: The Myocardial perfusion imaging findings and the further management plan were discussed with Dr. Woody. If the patient continues to remain stable, may be discharged home with the above medication changes. [facility] 2 weeks by the nurse practitioner. Appointment with Dr. Palacios as scheduled In the event of the patient to be recurrence of chest pain or any new symptoms, advised to contact our office. PDMP PDMP Reviewed: Not Reviewed Attestations Medical Necessity Statement*: Disposition as per the primary Coding Level of Care Code 35177 Diagnoses Atherosclerotic heart disease of [place] coronary artery with other forms of angina pectoris I25.118 Paroxysmal atrial fibrillation I48.0 Multi-vessel coronary artery stenosis I25.10 Left ventricular thrombus I51.3 Primary hypertension I10 Hypertension type: primary hypertension Ischemic cardiomyopathy I25.5 Stage 3a chronic kidney disease N18.31 Chronic kidney disease stage: stage 3 (moderate) Chronic kidney disease stage 3 subtype: stage 3a (GFR 45-59) Dyslipidemia E78.5
--- NOTE | 2025-03-21 09:21 | PC.CHAP ---
Pastoral Care Encounter/Spiritual Assessment Type of Contact [] Declined certified personal trainer visit [] Patient/Family/Request visit [] Outpatient visit [] Follow-up visit [] Physician referral [] Code/Alert [] Routine visit [] Staff referral [] Actively dying [] Patient sleeping [] Family support [] [x] Out of room [] Palliative care [] [] Receiving care in room [] Pre-surgical visit [] Trauma [] Long length of stay [] ICU visit [] Other: Relational/Emotional Strength [] Patient feels connected with others/family/visitors/staff [] Distress [] Loneliness/isolation [] Abandonment Spirituality of Patient [] Person of April [] Attends Mu-Ism of their April [] Believes in Prayer [] Reads Bible or Alevism materials [] There are Spiritual issues to be addressed Workday Senior Associate Interventions [] Prayer [] Active listening [] Non-anxious presence [] Spiritual/emotional support [] Crisis/trauma care [] Spiritual counseling [] Bereavement support [] Provided bereavement packet [] Provided Bible/devotional materials [] Provided toy/stuffed animal, coloring book to patient or family member [] Provided Communion [] Anointing/[place] [] Salvation [] Completed spiritual assessment [] Other: Impact on Illness or Injury [] Angry [] Fearful [] Anxious [] Often cries [] Exhaustion [] Unable to work [] Unable to attend gnosticist [] Unable to walk/stand [] Unable to read [] Unable to drive [] Unable to eat/drink [] Unable to sleep [] Unable to be with family [] Patient intubated [] Other: Summary Time spent with patient
--- NOTE | 2025-03-21 12:20 | PM.DCS ---
Discharge Providers Date of Admission: 03/20/25 07:47 Date of Discharge: March 21, 2025 Attending Provider at Admission: Kristie Carvalho MD Attending Provider at Discharge: Jair Lange MD Consults: Cardiology: Dr. Gonzales Primary Care Provider: MELA Mesa Diagnoses at Discharge Discharge Diagnosis 1. Atherosclerotic heart disease of [place] coronary artery with other forms of angina pectoris: 2. Paroxysmal atrial fibrillation: 3. Multi-vessel coronary artery stenosis: 4. Left ventricular thrombus: 5. Primary hypertension: 6. Ischemic cardiomyopathy: 7. Stage 3a chronic kidney disease: 8. Dyslipidemia: Reason for Visit Reason for Visit: Chest Pains\SOB Hospital Course Hospital Course Victor Hugo Blackburn is a 84 year old male with a history of atherosclerotic heart diseas, status post recent PCI in September of this year, he is admitted to hospital through the emergency room, where he presented with complaints of chest pain. In September of this year, this patient was admitted to the hospital with features of an ST elevation myocardial infarction. Cardiac catheterization revealed total occlusion of the mid LAD. He had high-grade lesion in the proximal LAD. Because of the late presentation and fairly asymptomatic state, initially it was decided to treat the patient medically. So the patient was sent back to medical floor in stable condition. While being in the floor, couple of hours later, patient started having severe chest pain. And he developed features an acute inferior wall [place]. He was found to have an acute thrombotic occlusion of the right coronary artery for which he was taken back to [facility] and had PCI of the RCA with a 1 stent. He also was found to have possible mural thrombus in the left ventricle. He had episodes of atrial fibrillation for which he was started on amiodarone. He has been taking Eliquis. The patient has been doing okay with no chest pain or any symptoms subsequently. He was discharged home in stable condition. According the patient, he has been doing okay up until yesterday evening when he started having chest pain. The pain was intermittent. The chest pain was in the mid substernal region. He had a pleuritic component for the chest pain as well. It was radiating across the chest. Intensity was moderate. Because of the persistence of the symptoms, he was brought to the hospital. He has no fever, chills or cough. No unusual shortness of breath. He has no fever or chills. No cough. He has the baseline shortness of breath with activities. His echocardiogram during the hospital stay in September revealed an ejection fraction of 30%. Subsequent echocardiogram in January revealed ejection fraction around 48%. He has been noticing swelling of the lower extremities intermittently. For the last few days, the swelling has been getting worse. Patient was admitted to the hospital further evaluation and management of chest pain. Troponin cycled was negative. Cardiology was consulted. He underwent cardiac stress test which was concerning for myocardial scarring in the distribution of RCA/LAD territory with small areas of johanny-infarct ischemia around the apex. Given very small ischemia burden, history of CKD risk benefits were discussed with the patient for cardiac angiogram versus medical optimization. Patient verbalized understanding and is agreeable for medical management for now. Imdur 30 mg oral daily has been added to his medication list. He is been discharged in hemodynamically stable condition. Physical Exam Narrative: GENERAL: The patient is alert and oriented times three. Not in any acute distress. HEENT: No significant pallor, icterus or lymphadenopathy.Oral cavity: There are no mucous membrane lesions. NECK: Trachea appears to be central. No masses noted. No JVD or thyromegaly appreciated. RESPIRATORY: Chest is symmetrical. No intercostals muscle retraction or any accessory muscle activation. There is no chest wall tenderness. Breath sounds are heard bilaterally. No rales or rhonchi heard. No evidence of any consolidation. BREASTS: Deferred. HEART: The heart sounds are normal. No S3 or S4. Short systolic murmur in the left hilar border. No diastolic murmurs. No pericardial rub ABDOMEN: No vessel pulsations or distention. No tenderness. No organomegaly appreciated. Bowel sounds are normally heard. : Deferred. RECTAL: Deferred. LYMPHATIC: No lymphadenopathy noted in the neck. EXTREMITIES: 2+ edema both lower extremities. Features of chronic venous stasis. MUSCULOSKELETAL: No acute joint deformities or swelling SKIN: There are no significant rashes or ecchymosis NEUROPSYCHIATRIC: The patient is alert and oriented x3. Appears to be in a good mood. No tremors or rigidity noted. Discharge Data Studies Completed and Pending Completed Studies During Hospitalization Category Date Time Status Sestamibi Stress Test Request Routine Exams 03/20/25 16:35 Draft XR chest 1V portable [id number] Routine Exams 03/21/25 08:20 Completed XR chest 1V portable [id number] Stat Exams 03/20/25 02:58 Completed NM jeny perf SPECT r/s* [id number] Routine Nuc Med 03/21/25 16:35 Completed CV. echo limited [id number] Routine Ultrasound 03/20/25 09:17 Completed Pending at discharge Category Date Time Status Complete Blood Count w/Auto AM LABS Lab 03/22/25 04:00 Ordered Comprehensive Metabolic Panel AM LABS Lab 03/22/25 04:00 Ordered PTT [Partial Thromboplastin Time] Routine Lab 03/21/25 12:30 Ordered Platelet Count Q2D Lab 03/22/25 04:00 Ordered Platelet Count Q2D Lab 03/24/25 04:00 Ordered Radiology Impressions Chest X-Ray 03/21/25 08:20 Impression: Atherosclerosis. Echocardiogram CONCLUSIONS Mild diffuse hypokinesis of the left ventricle, more so of the basal and mid septum and the basal inferior wall segments. LV ejection fraction of 45%. Mildly dilated LV cavity. Mildly increased left atrial size. Thickened aortic valve. There is no pericardial effusion. There are no intracardiac masses. Compared to the study from 01/12/2025, there may be significant change Dr Tramaine Gonzales MD [facility] (Electronically Signed) Final Date: 20 March 2025 Lexiscan stress test PERFUSION FINDINGS Moderate area of moderately decreased resedate involving the basal mid and apical inferior wall segments. Moderate to moderately severe decreased tracer uptake involving the mid anteroseptum, apical septum and LV apex. Slightly decreased tracer uptake in the mid inferolateral and apical lateral segments. Moderate reversibility was noted in the apical septal and LV apex. Minimal reversible defects in the mid anteroseptal and apical lateral segments. FUNCTIONAL RESULTS (calculated via Gated SPECT) Stress Image LV EF (%): 44 Stress EDV (mL):176 TID: 1.02 Stress ESV (mL):99 FUNCTIONAL FINDINGS: Segmental wall motion analysis revealing mild diffuse hypokinesia of the left ventricle. LV cavity was found to be dilated. Normal transient ischemic dilatation ratio. IMPRESSIONS 1. Myocardial perfusion imaging revealing moderate area of moderate to moderately severe decrease tracer uptake involving the inferior, apical, and anteroseptal segments with some reversibility around the apex. This features may suggest myocardial scarring in the distribution of the right coronary artery/anterior descending artery with small areas of johanny-infarction ischemia around the apex. The summed score difference was 6 with a stress score of 15. 2. Diminished LV ejection fraction 44% 3. LV wall motion analysis revealing diffuse hypokinesia of the left ventricle 4. Mildly dilated LV cavity with an end-systolic volume of 99 mL No similar previous studies are available for comparison Dr Tramaine Gonzales MD [facility] (Electronically Signed) Final Date: 21 March 2025 12:12 Laboratory Results WBC 6.51 10^3/uL (3.29-11.43) 03/21/25 06:11 RBC 4.32 10^6/uL (3.85-5.65) 03/21/25 06:11 Hgb 13.40 g/dL (11.27-16.99) 03/21/25 06:11 Hct 39.2 % (37-53) 03/21/25 06:11 MCV 90.7 fl (82-101) 03/21/25 06:11 MCH 31.0 pg (27-33) 03/21/25 06:11 MCHC 34.2 g/dL (30-55) 03/21/25 06:11 RDW 12.7 % (12.1-15.1) 03/21/25 06:11 Plt Count 145 10^3/cmm (157-399) L 03/21/25 06:11 MPV 9.5 fL (7.4-10.4) 03/21/25 06:11 Neut % (Auto) 83.0 % 03/21/25 06:11 Lymph % (Auto) 8.0 % 03/21/25 06:11 [place] % (Auto) 7.2 % 03/21/25 06:11 Eos % (Auto) 1.2 % 03/21/25 06:11 Baso % (Auto) 0.3 % 03/21/25 06:11 Neut # (Auto) 5.40 10^3/uL (1.8-7.7) 03/21/25 06:11 Lymph # (Auto) 0.5 10^3/uL (0.8-4.8) L 03/21/25 06:11 [place] # (Auto) 0.5 10^3/uL (0.2-0.9) 03/21/25 06:11 Eos # (Auto) 0.1 10^3/uL (0.0-0.8) 03/21/25 06:11 Baso # (Auto) 0.0 10^3/uL (0.0-0.1) 03/21/25 06:11 Nucleated RBC % (auto) 0 % 03/21/25 06:11 Nucleated RBCs # 0.0 /100WBC 03/21/25 06:11 PT 17.50 SECONDS (12.1-14.9) H 03/20/25 15:49 INR 1.34 (0.8-1.2) H 03/20/25 15:49 APTT 43.2 SECONDS (23.9-36.7) H D 03/21/25 06:11 D-Dimer 0.43 ug/mLFEU (0-0.59) 03/20/25 03:55 Sodium 140 mmol/L (136-145) 03/21/25 06:11 Potassium 4.1 mmol/L (3.5-5.1) 03/21/25 06:11 Chloride 105 mmol/L (98-107) 03/21/25 06:11 Carbon Dioxide 27 mmol/L (22-29) 03/21/25 06:11 Anion Gap 12.1 (5-19) 03/21/25 06:11 BUN 19 mg/dL (8-23) 03/21/25 06:11 Creatinine 1.2 mg/dL (0.7-1.2) 03/21/25 06:11 GFR Calculation Not Reportable 03/21/25 06:11 Glucose 116 mg/dL (65-115) H 03/21/25 06:11 Calculated Osmolality 293 mOsm/kg (285-295) 03/21/25 06:11 Calcium 8.2 mg/dL (8.5-10.5) L 03/21/25 06:11 Phosphorus 2.8 mg/dL (2.5-4.5) 03/21/25 06:11 Magnesium 2.0 mg/dL (1.7-2.3) 03/21/25 06:11 Troponin T Baseline 25 ng/L (0-15) H 03/20/25 03:55 Troponin T 120 Minute 23.64 ng/L (0-15) H 03/20/25 06:20 Delta Troponin T -1.36 ABS# (0-10) L 03/20/25 06:20 Troponin T Hi Sens 6Hr 23.04 ng/L (0-15) H 03/20/25 09:36 Troponin T Hi Sens 6Hr Delta -1.96 ng/L (0-12) L 03/20/25 09:36 NT-Pro-B Natriuret Pep 3386 pg/mL (0-450) H 03/20/25 03:55 Vitals Last Vital Signs Temp 98.5 F 03/21/25 03:32 Pulse 73 03/21/25 10:26 Resp 22 H 03/21/25 08:56 BP 143/80 03/21/25 10:26 Pulse Ox 95 03/21/25 08:56 O2 Del Method Nasal Cannula 03/21/25 03:32 Discharge Plan Discharge Patient Disposition: Home Condition: Stable Prescriptions: New isosorbide mononitrate 30 mg tablet extended release 24 hr 30 mg PO DAILY Qty: 30 0RF Continued lysine [L-Lysine] 500 mg tablet 500 mg PO DAILY Eliquis 5 mg tablet 5 mg PO BID Qty: 180 3RF potassium chloride 10 mEq tablet,ER particles/crystals 10 meq PO DAILY Qty: 30 2RF furosemide 20 mg tablet 20 mg PO DAILY Qty: 30 2RF diltiazem HCl [Tiazac] 180 mg capsule,extended release 24 hr 180 mg PO QAM Qty: 30 2RF clopidogrel 75 mg tablet 75 mg PO DAILY Qty: 30 2RF atorvastatin 80 mg tablet 80 mg PO BEDTIME Qty: 30 2RF amiodarone [Pacerone] 200 mg tablet 200 mg PO QDAY Qty: 90 0RF omega 7-ows-xox-fish oil [Fish Oil] 1,000 (120-180) mg Capsule 1 cap PO DAILY Discharge Order = DC NOW: Discharge Order (Routine); Ordered 03/21/25 Ordered By: Jair Lange Referrals: Michael Deluca FNP-C [Primary Care Provider, Family Practice] - 03/28/25 2:40 pm Rosa Sheikh FNP [Nurse Practitioner, Cardiology] - 04/17/25 3:30 pm Discharge Diet: Cardiac Discharge Activity: Resume usual activity and Increase activity as tolerated Patient Instructions: Opioid Safety, Patient Portal & Mona Instructions Activity Restrictions/Additional Instructions: Restrict fluid intake to less than 1500 cc, salt intake to less than 2 g daily. Advised to check his weight daily at home. Is advised that weight today would be the dry weight and if body weight increases by around 5 pounds, patient is to take an extra dose of Lasix daily till body weight comes down to weight today. If not able to come down to dry body weight in 1 week, then is to call cardiology office for further recommendations. Patient was counseled in detail to take medications regularly as prescribed. Follow-up with your family doctor and food beverage server on set appointment. Take Imdur/isosorbide mononitrate 30 mg daily. Discharge Attestations Time Spent in Discharge Care*: greater than 30 min Specific Discharge Activities: educating patient, discussing with pcp/other providers, discussing with community case manager/social workers/dc planners, documenting/other paperwork and evaluating patient/reviewing data Status at Discharge: Cognitive status at discharge: cognitively intact, Behavioral status at discharge: cooperative, Functional status at discharge: independent ambulation, Overall status at discharge: patient is back to baseline Quality Metrics Clinical Quality Measures [ No reported AMI, CVA or VTE this stay] Coding Level of Care Code 18998 Total time (in minutes) for Discharge: 65 Diagnoses Atherosclerotic heart disease of [place] coronary artery with other forms of angina pectoris I25.118 Paroxysmal atrial fibrillation I48.0 Multi-vessel coronary artery stenosis I25.10 Left ventricular thrombus I51.3 Primary hypertension I10 Hypertension type: primary hypertension Ischemic cardiomyopathy I25.5 Stage 3a chronic kidney disease N18.31 Chronic kidney disease stage: stage 3 (moderate) Chronic kidney disease stage 3 subtype: stage 3a (GFR 45-59) Dyslipidemia E78.5
[2025-03-21 13:06] LABS: Partial Thromboplastin Time 57.7 SECONDS (23.9-36.7)
--- NOTE | 2025-03-21 16:35 | NMCV_ITS ---
NM jeny perf SPECT r/s* [id number] AlexeyVictor Hugo Age: 85 Gender: M : 1940 Exam Date: 03/21/2025 06:33 Ordering Phys: Jair Lange MD Technologist: POLLY Manzano Exam Location: [facility] Indications: cp STRESS TEST Please see separate stress test report in [facility] for full findings IMAGE PROTOCOL Rest/Stress 1 Lexiscan Day Radiopharmaceutical Dose (mCi) Administration Site Administered by Rest: Tc-99m 10.7 IV POLLY Manzano Sestamibi Stress:Tc-99m 32.5 IV POLLY Garcia Sestamibi Rest: 21-Mar-2025 60 Discovery 630 Stress: 21-Mar-2025 30 Discovery 630 0.4mg Lexiscan. Images obtained in supine and prone position. SPECT RESULTS Technical Quality: Good Raw Data Analysis: Normal Image Corrections: No attenuation or motion correction applied Summed Stress Score: 15 Summed Rest Score: 11 Summed Difference Score: 6 PERFUSION FINDINGS Moderate area of moderately decreased resedate involving the basal mid and apical inferior wall segments. Moderate to moderately severe decreased tracer uptake involving the mid anteroseptum, apical septum and LV apex. Slightly decreased tracer uptake in the mid inferolateral and apical lateral segments. Moderate reversibility was noted in the apical septal and LV apex. Minimal reversible defects in the mid anteroseptal and apical lateral segments. FUNCTIONAL RESULTS (calculated via Gated SPECT) Stress Image LV EF (%): 44 Stress EDV (mL):176 TID: 1.02 Stress ESV (mL):99 FUNCTIONAL FINDINGS: Segmental wall motion analysis revealing mild diffuse hypokinesia of the left ventricle. LV cavity was found to be dilated. Normal transient ischemic dilatation ratio IMPRESSIONS 1. Myocardial perfusion imaging revealing moderate area of moderate to moderately severe decrease tracer uptake involving the inferior, apical, and anteroseptal segments with some reversibility around the apex. This features may suggest myocardial scarring in the distribution of the right coronary artery/anterior descending artery with small areas of johanny-infarction ischemia around the apex. The summed score difference was 6 with a stress score of 15. 2. Diminished LV ejection fraction 44% 3. LV wall motion analysis revealing diffuse hypokinesia of the left ventricle 4. Mildly dilated LV cavity with an end-systolic volume of 99 mL No similar previous studies are available for comparison Dr Tramaine Gonzales MD [facility] (Electronically Signed) Final Date: 21 March 2025 12:12 S
== END 2025-03-21 14:56 | disposition home or self-care (01) ==
LOC: ER 06:02 → ER IP 08:17 → CSU 15:00 → ER IP 15:00
PROVIDERS: Admitting Provider Internal Medicine; Emergency Provider Emergency Medicine; PCP Nurse Practitioner; Visit Provider Student in an Organized Health Care Education/Training Program
DX: I25.118 Atherosclerotic heart disease of native coronary artery with other forms of angina pectoris (principal); I13.0 Hypertensive heart and chronic kidney disease with heart failure and stage 1 through stage 4 chronic kidney disease, or unspecified chronic kidney disease; N18.31 Chronic kidney disease, stage 3a; I50.23 Acute on chronic systolic (congestive) heart failure; I48.0 Paroxysmal atrial fibrillation; I51.3 Intracardiac thrombosis, not elsewhere classified; I25.5 Ischemic cardiomyopathy; E78.5 Hyperlipidemia, unspecified; Z79.02 Long term (current) use of antithrombotics/antiplatelets; Z79.01 Long term (current) use of anticoagulants; Z95.5 Presence of coronary angioplasty implant and graft; Z79.891 Long term (current) use of opiate analgesic; I25.2 Old myocardial infarction; Z86.73 Personal history of transient ischemic attack (TIA), and cerebral infarction without residual deficits
CPT/HCPCS: 36415; 71045; 78452; 80048; 83735; 83880; 84100; 84484; 85025; 85378; 85610; 85730; 93005; 93017; 93308; 96361; 96365; 96366; 96375; 99285; A9500; G0378; J1644; J1938; J2270; J2405; J2785; J7030; J9999

== ENCOUNTER → 2025-04-17 13:42 | Outpatient (BNVA) | payer MEDICARE, BC, SELFPAY | PROVIDERS: PCP Nurse Practitioner; Visit Provider Nurse Practitioner Family | DX: I25.10 Atherosclerotic heart disease of native coronary artery without angina pectoris (principal); I13.0 Hypertensive heart and chronic kidney disease with heart failure and stage 1 through stage 4 chronic kidney disease, or unspecified chronic kidney disease; I50.20 Unspecified systolic (congestive) heart failure; N18.31 Chronic kidney disease, stage 3a; E78.5 Hyperlipidemia, unspecified; I48.0 Paroxysmal atrial fibrillation; I69.354 Hemiplegia and hemiparesis following cerebral infarction affecting left non-dominant side; Z79.01 Long term (current) use of anticoagulants | CPT/HCPCS: 99214 ==